=== PATIENT | female | born 1995 | race Caucasian/White ===

== ENCOUNTER 2017-01-06 12:02 | Emergency (ER) | payer BC, MEDICAID ==
[~2017-01-06] VITALS: Ht 162.6 cm; Wt 131.5 kg
[~2017-01-06 12:02] MED LIST: ACET250T3 PO; ACHD5005 PO; AZTH250C PO; CEPH500C PO; CIPR500T78 PO; DICY20TA57 PO; HYDR-1231 PO; HYDR1TAB PO; HYDR1TAB66 PO; LVF500T; METR500T PO; MTF500T PO; NAPR-243 PO; ONDA8TAB13 PO; ONDA8TAB9 PO; OXYC-12 PO; PHEN200T27 PO; POLY119P PO; PRM25T PO; SULF-222 PO; SULF1TAB38 PO; TRAM50TA2 PO; TRL300 PO; TRM50T PO
[2017-01-06 12:25] LABS: BILIRUBIN,URINE NEGATIVE (NEGATIVE); KETONES,URINE NEGATIVE (NEGATIVE); LEUKOCYTE ESTERASE ,URINE NEGATIVE (NEGATIVE); NITRITE,URINE NEGATIVE (NEGATIVE); PH,URINE 8 (5-9); PROTEIN,URINE NEGATIVE (NEGATIVE); UROBILINOGEN,URINE NORMAL (NORMAL)
[2017-01-06] MEDS ORDERED: KETOROLAC 30 MG/ML VIAL IVP STA (12:30)
[2017-01-06] MEDS ORDERED: NS IV 1000 ML 1,000 ML IV STA (12:30)
[2017-01-06] MEDS ORDERED: ONDANSETRON 4 MG/2 ML (SDV) Z0FRAN IVP ONE (12:30)
[2017-01-06] MEDS ORDERED: fentaNYL INJECTION 100 MCG/2 ML AMP IVP STA (12:30)
[2017-01-06 12:33] LABS: WBC,URINE 0-2 /HPF
--- NOTE | 2017-01-06 12:36 | ED Abdominal Pain ---
General Chief Complaint: Abdominal/GI Problems Stated Complaint: GALBLADDER OR APPENDIX PAIN Nursing Triage Note: c/o right sided abd pain. Onset yesterday. Sepsis Screen: No Definite Risk Source of Information: Patient Exam Limitations: No Limitations History of Present Illness Time Seen By Provider: 12:20 Initial Comments Here with report of right lower quadrant abdominal pain that radiates to the upper quadrants and her back. Onset yesterday. Associated with nausea and vomiting 1. Denies dysuria or blood in her urine or stool. Denies diarrhea. Never had pain like this before. Worse with movement and better with rest Timing/Duration: 24 Hours Severity/Quality: Moderate, Aching Location: RLQ Radiation: RUQ, LUQ, Back Activities at Onset: None Modifying Factors: Worsens With Breathing, Worsens With Movement, Improves With Resting Associated Symptoms: No Chest Pain, No Fever/Chills, Nausea/Vomiting, No Shortness of Air, No Weakness Allergies and Home Medications Allergies Coded Allergies: amoxicillin (Verified Allergy, Mild, 05/18/13) vancomycin (Unverified Allergy, Unknown, 01/24/15) maris syndrome Uncoded Allergies: SURGICAL GLUE (Allergy, Unknown, 03/13/15) Home Medications Oxycodone Hcl/Acetaminophen 1 Each Tablet, 1 EACH PO Q4-6H PRN, #20 Ref 0 ( Reported) Review of Systems Constitutional: see HPI, No chills, No fever EENTM: No Symptoms Reported Respiratory: No Symptoms Reported Cardiovascular: No Symptoms Reported, Denies Chest Pain, Denies Edema Gastrointestinal: Abdominal Pain, Denies Constipated, Denies Diarrhea, Nausea, Vomiting Genitourinary: No Symptoms Reported Musculoskeletal: back pain, No muscle pain Skin: no symptoms reported All Other Systems Reviewed Negative Unless Noted: Yes Past Oazudzn-Mgktlh-Kyzpvj Hx Patient Social History Alcohol Use: Denies Use Recreational Drug Use: Yes (thc) Smoking Status: Never a Smoker Recent Foreign Travel: No Contact w/Someone Who Travel: No Recent Infectious Disease Expo: No Immunizations Up To Date Date of Influenza Vaccine: Jun 03, 2012 Surgeries HX Surgeries: Yes (left salpingectomy; GENERAL ACCOUNTING CLERK shunt) Surgeries: Abdominal, Adenoidectomy, Tonsillectomy Respiratory Hx Respiratory Disorders: No Cardiovascular Hx Cardiac Disorders: No Neurological Hx Neurological Disorders: Yes (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) Neurological Disorders: Headaches /Migraines Reproductive System Hx Reproductive Disorders: Yes (12 CM CYST OF THE LEFT SALPINX STATUS POST RESECTION) Female Reproductive Disorders: Polycystic Ovarian Dis Genitourinary Hx Genitourinary Disorders: No Gastrointestinal Hx Gastrointestinal Disorders: Yes (abdominopelvic adhesions) Musculoskeletal Hx Musculoskeletal Disorders: No Endocrine Hx Endocrine Disorders: No HEENT HX ENT Disorders: No Cancer Hx Cancer: No Psychosocial Hx Psychiatric Problems: Yes Behavioral Health Disorders: ADD/ADHD Integumentary HX Skin/Integumentary Disorder: No Blood Transfusions Hx Blood Disorders: No Reviewed Nursing Assessment Reviewed/Agree w Nursing PMH: Yes Family Medical History Significant Family History: No Pertinent Family Hx Physical Exam Vital Signs VS - Last 72 Hours, by Label 01/06/17 12:23 Temp 97.5 Pulse 70 Resp 16 B/P (MAP) 138/77 Pulse Ox 98 Capillary Refill : Less Than 3 Seconds General Appearance: WD/WN, no apparent distress HEENT: PERRL/EOMI, pharynx normal Neck: full range of motion, supple Respiratory: lungs clear, normal breath sounds Cardiovascular: regular rate, rhythm, no murmur Gastrointestinal: soft, No guarding, No rebound, tenderness (right lower quadrant) Extremities: non-tender, normal inspection Back: normal inspection, no CVA tenderness, no vertebral tenderness Neurologic/Psychiatric: alert, oriented x 3 Skin: normal color, warm/dry Progress/Results/Core Measures Results/Orders Lab Results Laboratory Tests Test 01/06/17 12:05 01/06/17 12:38 Range/Units Urine Color YELLOW Urine Clarity CLEAR Urine pH 8 5-9 Urine Specific [place] 1.015 L 1.016-1.022 Urine Protein NEGATIVE NEGATIVE Urine Glucose (UA) NEGATIVE NEGATIVE Urine Ketones NEGATIVE NEGATIVE Urine Nitrite NEGATIVE NEGATIVE Urine Bilirubin NEGATIVE NEGATIVE Urine Urobilinogen NORMAL NORMAL MG/DL Urine Leukocyte Esterase NEGATIVE NEGATIVE Urine RBC (Auto) NEGATIVE NEGATIVE Urine RBC NONE /HPF Urine WBC 0-2 /HPF Urine Squamous Epithelial Cells 2-5 /HPF Urine Crystals NONE /LPF Urine Bacteria NEGATIVE /HPF Urine Casts NONE /LPF Urine Mucus NEGATIVE /LPF Urine Culture Indicated NO Urine Test NEGATIVE NEGATIVE White Blood Count 10.3 4.3-11.0 10^3/uL Red Blood Count 5.54 4.35-5.85 10^6/uL Hemoglobin 15.2 11.5-16.0 G/DL Hematocrit 45 35-52 % Mean Corpuscular Volume 81 80-99 FL Mean Corpuscular Hemoglobin 27 25-34 PG Mean Corpuscular Hemoglobin Concent 34 32-36 G/DL Red Cell Distribution Width 13.7 10.0-14.5 % Platelet Count 233 130-400 10^3/uL Mean Platelet Volume 12.1 H 7.4-10.4 FL Neutrophils (%) (Auto) 69 42-75 % Lymphocytes (%) (Auto) 22 12-44 % Monocytes (%) (Auto) 7 0-12 % Eosinophils (%) (Auto) 2 0-10 % Basophils (%) (Auto) 0 0-10 % Neutrophils # (Auto) 7.1 1.8-7.8 X 10^3 Lymphocytes # (Auto) 2.3 1.0-4.0 X 10^3 Monocytes # (Auto) 0.7 0.0-1.0 X 10^3 Eosinophils # (Auto) 0.2 0.0-0.3 10^3/uL Basophils # (Auto) 0.0 0.0-0.1 10^3/uL Sodium Level 143 135-145 MMOL/L Potassium Level 4.1 3.6-5.0 MMOL/L Chloride Level 109 H 98-107 MMOL/L Carbon Dioxide Level 26 21-32 MMOL/L Anion Gap 8 5-14 MMOL/L Blood Urea Nitrogen 7 7-18 MG/DL Creatinine 0.73 0.60-1.30 MG/DL Estimat Glomerular Filtration Rate > 60 BUN/Creatinine Ratio 10 Glucose Level 107 H 70-105 MG/DL Calcium Level 9.0 8.5-10.1 MG/DL Total Bilirubin 0.3 0.1-1.0 MG/DL Aspartate Amino Transf (AST/SGOT) 15 5-34 U/L Alanine Aminotransferase (ALT/SGPT) 21 0-55 U/L Alkaline Phosphatase 67 40-136 U/L Total Protein 6.6 6.4-8.2 G/DL Albumin 3.7 3.2-4.5 G/DL My Orders Orders - RAJIV TERRY MD Ua Culture If Indicated (01/06/17 12:19) Hcg,Qualitative Urine (01/06/17 12:19) Cbc With Automated Diff (01/06/17 12:30) Comprehensive Metabolic Panel (01/06/17 12:30) Saline Lock/Iv-Start (01/06/17 12:30) Ondansetron Injection (Zofran Injectio (01/06/17 12:30) Ns Iv 1000 Ml (Sodium Chloride 0.9%) (01/06/17 12:30) Fentanyl Injection (Sublimaze Injection (01/06/17 12:30) Ketorolac Injection (Toradol Injection) (01/06/17 12:30) Ct Abd/Pelv W (Appendicitis) (01/06/17 12:58) Iohexol Injection (Omnipaque 350 Mg/Ml 1 (01/06/17 13:15) Ns (Ivpb) (Sodium Chloride 0.9% Ivpb Bag (01/06/17 13:15) Medications Given in ED Current Medications Medications Dose Ordered Sig/Laureano Route Start Time Stop Time Status Last Admin Dose Admin Iohexol 100 ml ONCE ONCE IV 01/06/17 13:15 01/06/17 13:16 DC 01/06/17 13:53 100 ML Ondansetron HCl 4 mg ONCE ONCE IVP 01/06/17 12:30 01/06/17 12:31 DC 01/06/17 12:42 4 MG Sodium Chloride 100 ml ONCE ONCE IV 01/06/17 13:15 01/06/17 13:16 DC 01/06/17 13:53 80 ML Vital Signs/I&O Vital Sign - Last 12Hours 01/06/17 12:23 Temp 97.5 Pulse 70 Resp 16 B/P (MAP) 138/77 Pulse Ox 98 Blood Pressure Mean: 97 Progress Note : Progress Note Seen and evaluated. IV, labs, UA, normal saline 1 L bolus, Zofran 4 mg IV, fentanyl 50 g IV, Toradol 30 [address] IV[address] Monitor patient. CT abdomen pelvis ordered appendicitis protocol. 1520: No acute findings on any evaluation. She is doing a little better but still states that she generally feels not well. We discussed options of what this is related to an this is likely viral. We will try conservative outpatient and return for any worsening. Discharged home with return precautions. Patient verbalize understanding instructions and agreement with plan. Diagnostic Imaging Diagonstic Imaging: CT Plain Films/CT/US/NM/MRI: abdomen, pelvis Comments VIA [facility]. [place], [place] NAME: ALEJANDRA KAUFMAN [facility] REC#: [id number] PT STATUS: REG ER : 1995 PHYSICIAN: RAJIV TERRY MD ADMIT DATE: 01/06/17/ER Draft Date of Exam:01/06/17 CT ABD/PELV W (APPENDICITIS) PROCEDURE: CT abdomen and pelvis with contrast, rule out appendicitis. TECHNIQUE: Multiple contiguous axial images were obtained through the abdomen and pelvis after the administration of intravenous contrast. INDICATION: Nausea. Right lower quadrant pain. FINDINGS: Liver, gallbladder and bile ducts are normal. The spleen, pancreas and adrenals are normal. The kidneys, ureters and bladder are normal. The appendix is visualized and appears normal. No acute bowel abnormality is seen. There is no free intraperitoneal air or fluid. IMPRESSION: No acute abnormality is seen with no significant change from 01/24/15. Dictated on workstation # [id number] Dict: 01/06/17 1424 Trans: 01/06/17 1429 [id number] Interpreted by: SAMMIE MAURICIO MD Electronically signed by: Departure Impression Impression: Primary Impression: Generalized abdominal pain Disposition: HOME, SELF-CARE Condition: Stable Departure-Patient Inst. Decision time for Depature: 15:22 Referrals: NO,LOCAL PHYSICIAN (PCP/Family) Primary Care Physician Patient Instructions: Acute Abdomen (Belly Pain), Adult (DC) Add. Discharge Instructions: All discharge instructions reviewed with patient and/or family. Voiced understanding. Clear liquid diet for 24 hours and then advance as tolerated. You may take Pepcid or the generic famotidine 20 mg twice daily for the next 3 days and then daily thereafter as needed for stomach upset. Follow-up with your doctor this week for recheck and further evaluation. Return for worse pain, fever, vomiting , weakness, breathing problems or other concerns as needed. RAJIV TERRY MD January 06, 2017 12:36
[2017-01-06 12:49] LABS: BASOPHILS % (AUTO) 0 % (0-10); EOSINOPHILS # (AUTO) 0.2 10^3/uL (0.0-0.3); EOSINOPHILS % (AUTO) 2 % (0-10); LYMPHOCYTES # (AUTO) 2.3 X 10^3 (1.0-4.0); LYMPHOCYTES % (AUTO) 22 % (12-44); MEAN CORPUSCULAR HEMOGLOBIN 27 PG (25-34); MEAN CORPUSCULAR HGB CONC 34 G/DL (32-36); MEAN CORPUSCULAR VOLUME 81 FL (80-99); MEAN PLATELET VOLUME 12.1 FL (7.4-10.4); MONOCYTES # (AUTO) 0.7 X 10^3 (0.0-1.0); MONOCYTES % (AUTO) 7 % (0-12); NEUTROPHILS # (AUTO) 7.1 X 10^3 (1.8-7.8); NEUTROPHILS % (AUTO) 69 % (42-75); PLATELET COUNT 233 10^3/uL (130-400); RED BLOOD COUNT 5.54 10^6/uL (4.35-5.85); RED CELL DISTRIBUTION WIDTH 13.7 % (10.0-14.5); WHITE BLOOD COUNT 10.3 10^3/uL (4.3-11.0)
[2017-01-06 13:08] LABS: ALANINE AMINOTRANSFERASE 21 U/L (0-55); ALBUMIN 3.7 G/DL (3.2-4.5); ANION GAP 8 MMOL/L (5-14); ASPARTATE AMINO TRANSFERASE 15 U/L (5-34); BILIRUBIN,TOTAL 0.3 MG/DL (0.1-1.0); BLOOD UREA NITROGEN 7 MG/DL (7-18); BUN/CREATININE RATIO 10; CARBON DIOXIDE 26 MMOL/L (21-32); CHLORIDE 109 MMOL/L (98-107); CREATININE SERUM 0.73 MG/DL (0.60-1.30); GFR ESTIMATED > 60; GLUCOSE 107 MG/DL (70-105); POTASSIUM 4.1 MMOL/L (3.6-5.0); SODIUM 143 MMOL/L (135-145); TOTAL PROTEIN 6.6 G/DL (6.4-8.2)
[2017-01-06] MEDS ORDERED: NS 100 ML (IVPB) BAG IV ONE (13:15)
[2017-01-06] MEDS ORDERED: IOHEXOL 350 MG/ML 100 ML (OMNIPAQUE 350) VIAL IV ONE (13:15)
--- NOTE | 2017-01-06 14:29 | Diagnostic Imaging Report ---
PROCEDURE: CT abdomen and pelvis with contrast, rule out appendicitis. TECHNIQUE: Multiple contiguous axial images were obtained through the abdomen and pelvis after the administration of intravenous contrast. INDICATION: Nausea. Right lower quadrant pain. FINDINGS: Liver, gallbladder and bile ducts are normal. The spleen, pancreas and adrenals are normal. The kidneys, ureters and bladder are normal. The appendix is visualized and appears normal. No acute bowel abnormality is seen. There is no free intraperitoneal air or fluid. IMPRESSION: No acute abnormality is seen with no significant change from 01/24/15. Dictated by: Dictated on workstation # [id number]
[2017-01-06 15:27] VITALS: BP 132/70
== END 2017-01-06 15:27 | disposition home or self-care (01) ==
LOC: EDUNIT# 12:02 → ER 12:04
DX: R10.84 Generalized abdominal pain (principal)
CPT/HCPCS: 36415; 74177; 80053; 81000; 84703; 85025; 96374; 96375

== ENCOUNTER 2017-05-10 11:36 | Emergency (ER) | payer BC ==
--- OUTSIDE RECORDS SUMMARY | 2017-05-10 11:46 | XMS REPORT ---
Author Author HARJEET WAGNER [facility] Address [address] [place] [address] Care Team Providers Care Loom Fixer Name Role Phone HARJEET WAGNER Unavailable PROBLEMS Type Condition ICD9-CM Code [id number] Code Onset Dates Condition Status SNOMED Code Problem Screening-pulmonary TB V74.1 Active 011413673 Problem Syncope and collapse 780.2 Active 867279808 Problem Headache 784.0 Active 05046531 ALLERGIES Substance Reaction Event Type Date Status Vancomycin HCl unknown effect Drug Allergy Aug, Active Amoxicillin anaphylaxis Drug Allergy Aug, Active SOCIAL HISTORY No smoking Hx information available PLAN OF CARE Activity Details Follow Up prn Reason: VITAL SIGNS Height 64 in 2016-08-23 Weight 304.0 lbs 2016-08-23 Temperature 98.3 degrees Fahrenheit 2016-08-23 Heart Rate 84 bpm 2016-08-23 Respiratory Rate 18 2016-08-23 BMI 52.18 kg/m2 2016-08-23 Blood pressure systolic 128 mmHg 2016-08-23 Blood pressure diastolic 74 mmHg 2016-08-23 MEDICATIONS Medication Instructions Dosage Frequency Start Date End Date Duration Status Promethazine HCl 25 MG Orally every 12 hrs 1 tablet as needed for n/v 12h Aug, Sep, 30 day(s) Active RESULTS No Results PROCEDURES Procedure Date Ordered Related Diagnosis Body Site Office Visit, Est Pt., Level 3 Aug 23, 2016 IMMUNIZATIONS No Known Immunizations
--- OUTSIDE RECORDS SUMMARY | 2017-05-10 11:46 | XMS REPORT | Continuity of Care Document ---
Author Author [employer] [facility] Address Unknown Phone Unavailable Care Team Providers Care Correctional Program Specialist Name Role Phone [employer] Unavailable Unavailable Problems Medications Medication Details Route Status Patient Instructions Ordering Provider Order Date Source Toradol 09/01/14 12:00:00 HEPATOLOGY PHYSICIAN, [facility], Routine, 30 mg=2 mL, IV Push, q8hr, 5 day(s), Stop date 09/06/14 4:00:00 CSTAdminister IV push over 1-5 minutes. MED ID: [id number] Inactive [facility] Benadryl 09/01/14 12:00:00 HEPATOLOGY PHYSICIAN, [facility], Routine, 50 mg=1 mL, IV Push, q8hr Active [facility] Compazine 09/01/14 11:37:00 HEPATOLOGY PHYSICIAN, Med Drawer (Pharmacy) , Routine, 10 mg=10 mL, IV Push, [id number] Concentration. Administer at a maximum rate of 1mg/minute. Protect from light. MED ID: [id number] Active [facility] acetaminophen 08/31/14 16:01:00 HEPATOLOGY PHYSICIAN, [facility], Routine, 1,000 mg=31.25 mL, PO, q6hr, PRN Fever or Mild PainMax dose: < 12 y.o.=75 mg/kg/day; > 12 y.o.=4 gm/day MED ID: [id number]. Active [facility] ibuprofen 08/31/14 16:01:00 HEPATOLOGY PHYSICIAN, [facility] , Routine, 800 mg=40 mL, PO, q6hr, PRN Fever or Pain, not responding to APAPAdminister medication with food or milk. MED ID: [id number]. Active [facility] D5NS with KCl 20mEq/L 1,000 mL 08/31/14 16:01:00 HEPATOLOGY PHYSICIAN, [facility]H1 [facility], Routine, IV, 1,000 mL Total Volume, iyyn=214 mL/hr Active [facility] ibuprofen 100 mg/5 mL oral suspension 800 mg=40 mL, PO , q6hr, PRN Fever or Pain, not responding to APAP, Refill(s) 0 Active [facility] Allergies, Adverse Reactions, Alerts Substance Category Reaction Severity Reaction type Status Date Reported Comments Source Adhesive Bandage allergy to substance Weal (disorder), Blister of skin AND/OR mucosa (finding), Pruritic rash (disorder) Delay Discharge: Severe Allergy Active 09/2011 1Per patient surgical super glue has been used on two separate occasions, both times causing her to itch. She stated that now instead of using the "glue" they have since just used stitches. 2blisters [facility] amoxicillin propensity to adverse reactions to substance Numbness of face (finding) Requires Tx: Moderate Adverse Reaction Active 09/03/2012 [facility] Drug Safety Service: Tay Hodges - She was prescribed amoxicillin approximately one year ago for the "flu", after taking the medication she developed numbness of her face and chest. She went to an ER but is unable to recall specific details of how reaction was managed. [facility] Immunizations Results Order Name Results Value Reference Range Date Interpretation Comments Source UCG UCG NEGATIVE 08/31/2014 NA [facility] Vital Signs Vital Sign Value Date Comments Source Temperature Celsius 36.8 [place] 09/01/2014 [facility] Systolic Blood Pressure Cuff Monitored <content ID=' [id number]'>113</content>/<content ID='[id number]'>71</content> mm[Hg ] 09/01/2014 [facility] Temperature Route Oral
</br>(09/01/2014 16:00:00) <sup> </sup> 09/01/2014 [facility] Respiratory Rate 21 BR/min [facility] Heart Rate 78 bpm 09/01/2014 [facility] Systolic Blood Pressure Cuff Monitored <content ID=' [id number]'>131</content>/<content ID='[id number]'>51</content> mm[Hg ] 09/01/2014 [facility] Temperature Route Oral
</br>(09/01/2014 12:00:00) <sup> </sup> 09/01/2014 [facility] Temperature Celsius 36.6 [place] 09/01/2014 [facility] Respiratory Rate 16 BR/min [facility] Heart Rate 85 bpm 09/01/2014 [facility] Systolic Blood Pressure Cuff Monitored <content ID=' [id number]'>110</content>/<content ID='[id number]'>52</content> mm[Hg ] 09/01/2014 [facility] Respiratory Rate Monitored 15 BR/min 09/01/[address] [facility] Heart Rate Monitored 68 bpm 09/01/2014 [facility] Respiratory Rate 17 BR/min [facility] Heart Rate 79 bpm 09/01/2014 [facility] Temperature Route Oral
</br>(09/01/2014 08:00:00) <sup> </sup> 09/01/2014 [facility] Temperature Celsius 36.7 [place] 09/01/2014 [facility] Respiratory Rate Monitored 16 BR/min 09/01/[address] [facility] Heart Rate Monitored 70 bpm 09/01/2014 [facility] Current Weight 124.3 kg 09/01 [facility] Respiratory Rate Monitored 19 BR/min 08/31/[address] [facility] Heart Rate Monitored 77 bpm 08/31/2014 [facility] Current Weight 116.1 kg 08/31 [facility] Height/Length 162.5 cm 2013 [facility] Height/Length 162.5 cm 2013 [facility] Current Weight 116.1 kg 08/31 [facility] Encounters Location Location Details Encounter Type Encounter Number Reason For Visit Attending Provider ADM Date DC Date Status Source [facility] [address] REF [id number] Alka Villa 08/31/2014 Active [facility] OBS [id number] romi Aguilar 08/31/2014 Active [facility] Procedures Plan of Care Social History Assessment and Plan Family History Value Date Source Advance Directives Order Name Results Value Date Source
--- OUTSIDE RECORDS SUMMARY | 2017-05-10 11:46 | XMS REPORT ---
Author Author SHONNA SANCHEZ [facility] [address] Address [address] [place] [address] Care Team Providers Care Barrel Drainer Name Role Phone SHONNA SANCHEZ Unavailable PROBLEMS Type Condition ICD9-CM Code VDO40-FE Code Onset Dates Condition Status SNOMED Code Problem Screening-pulmonary TB V74.1 Active 972526746 Problem Syncope and collapse 780.2 Active 151729582 Problem Headache 784.0 Active 54233790 ALLERGIES No Known Allergies SOCIAL HISTORY No smoking Hx information available PLAN OF CARE Activity Details Follow Up 48-72 hours Reason: VITAL SIGNS MEDICATIONS No Known Medications RESULTS No Results PROCEDURES Procedure Date Ordered Related Diagnosis Body Site TB INTRADERMAL TEST Sep 06, 2016 IMMUNIZATIONS No Known Immunizations
== END 2017-05-10 12:50 | disposition left against medical advice (07) ==
LOC: EDUNIT# 11:36 → ER 11:41
DX: M79.89 Other specified soft tissue disorders (principal); Z77.098 Contact with and (suspected) exposure to other hazardous, chiefly nonmedicinal, chemicals

== ENCOUNTER 2017-07-16 21:31 | Emergency (ER) | payer BC ==
[~2017-07-16] VITALS: Ht 162.6 cm; Wt 128.8 kg
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
[2017-07-16 22:22] LABS: BASOPHILS % (AUTO) 0 % (0-10); EOSINOPHILS # (AUTO) 0.5 10^3/uL (0.0-0.3); EOSINOPHILS % (AUTO) 5 % (0-10); LYMPHOCYTES % (AUTO) 29 % (12-44); MEAN CORPUSCULAR HEMOGLOBIN 28 PG (25-34); MEAN CORPUSCULAR HGB CONC 34 G/DL (32-36); MEAN CORPUSCULAR VOLUME 82 FL (80-99); MEAN PLATELET VOLUME 11.3 FL (7.4-10.4); MONOCYTES # (AUTO) 0.7 X 10^3 (0.0-1.0); MONOCYTES % (AUTO) 7 % (0-12); NEUTROPHILS % (AUTO) 59 % (42-75); PLATELET COUNT 258 10^3/uL (130-400); RED BLOOD COUNT 5.24 10^6/uL (4.35-5.85); RED CELL DISTRIBUTION WIDTH 13.6 % (10.0-14.5); WHITE BLOOD COUNT 10.2 10^3/uL (4.3-11.0)
[2017-07-16 22:52] LABS: ALANINE AMINOTRANSFERASE 18 U/L (0-55); ALBUMIN 3.8 GM/DL (3.2-4.5); AMYLASE 50 U/L (25-125); ANION GAP 11 MMOL/L (5-14); ASPARTATE AMINO TRANSFERASE 18 U/L (5-34); BILIRUBIN,TOTAL 0.3 MG/DL (0.1-1.0); BLOOD UREA NITROGEN 19 MG/DL (7-18); BUN/CREATININE RATIO 24; CALCIUM 9.3 MG/DL (8.5-10.1); CARBON DIOXIDE 22 MMOL/L (21-32); CHLORIDE 109 MMOL/L (98-107); CREATINE KINASE 44 U/L (29-168); GFR ESTIMATED > 60; GLUCOSE 112 MG/DL (70-105); LIPASE 16 U/L (8-78); MAGNESIUM 1.9 MG/DL (1.8-2.4); POTASSIUM 3.8 MMOL/L (3.6-5.0); SODIUM 142 MMOL/L (135-145); TOTAL PROTEIN 7.1 GM/DL (6.4-8.2)
[2017-07-16 22:52] LABS: BILIRUBIN,URINE NEGATIVE (NEGATIVE); KETONES,URINE NEGATIVE (NEGATIVE); LEUKOCYTE ESTERASE ,URINE NEGATIVE (NEGATIVE); NITRITE,URINE NEGATIVE (NEGATIVE); PH,URINE 6 (5-9); PROTEIN,URINE NEGATIVE (NEGATIVE); UROBILINOGEN,URINE NORMAL (NORMAL)
[2017-07-16 23:13] LABS: TROPONIN I < 0.30 NG/ML (<0.30)
[2017-07-16 23:38] VITALS: BP 108/83
--- NOTE | 2017-07-17 06:04 | Diagnostic Imaging Report ---
EXAM: CHEST PA/LAT (2 VIEW) INDICATION: Chest pain. Cough. COMPARISON: None. FINDINGS: Normal heart size and pulmonary vascularity. No focal pulmonary opacity, pleural effusion or pneumothorax. Osseous structures are unremarkable. IMPRESSION: Negative chest. Dictated by: Dictated on workstation # [id number]
== END 2017-07-16 23:38 | disposition home or self-care (01) ==
LOC: EDUNIT# 21:31 → ER 21:32
DX: F41.9 Anxiety disorder, unspecified (principal); G43.909 Migraine, unspecified, not intractable, without status migrainosus; E66.9 Obesity, unspecified; E11.9 Type 2 diabetes mellitus without complications; F90.9 Attention-deficit hyperactivity disorder, unspecified type; F17.210 Nicotine dependence, cigarettes, uncomplicated; Z87.448 Personal history of other diseases of urinary system; Z90.89 Acquired absence of other organs
CPT/HCPCS: 36415; 71020; 80053; 80306; 81000; 82150; 82550; 82553; 83690; 83735; 83880; 84443; 84484; 84703; 85025; 85610; 85730; 93005; 93041

== ENCOUNTER → 2017-07-24 | Outpatient (CLI) | payer BC ==
[2017-07-24 11:11] LABS: PEP REPORT SEE PATH REPORT
[2017-07-24 11:16] LABS: BASOPHILS # (AUTO) 0.1 10^3/uL (0.0-0.1); BASOPHILS % (AUTO) 0 % (0-10); EOSINOPHILS # (AUTO) 0.3 10^3/uL (0.0-0.3); EOSINOPHILS % (AUTO) 3 % (0-10); LYMPHOCYTES # (AUTO) 2.2 X 10^3 (1.0-4.0); LYMPHOCYTES % (AUTO) 18 % (12-44); MEAN CORPUSCULAR HEMOGLOBIN 28 PG (25-34); MEAN CORPUSCULAR HGB CONC 34 G/DL (32-36); MEAN CORPUSCULAR VOLUME 81 FL (80-99); MEAN PLATELET VOLUME 11.8 FL (7.4-10.4); MONOCYTES # (AUTO) 0.7 X 10^3 (0.0-1.0); MONOCYTES % (AUTO) 6 % (0-12); NEUTROPHILS # (AUTO) 8.8 X 10^3 (1.8-7.8); NEUTROPHILS % (AUTO) 73 % (42-75); PLATELET COUNT 242 10^3/uL (130-400); RED BLOOD COUNT 5.41 10^6/uL (4.35-5.85); RED CELL DISTRIBUTION WIDTH 13.7 % (10.0-14.5); WHITE BLOOD COUNT 12.1 10^3/uL (4.3-11.0)
[2017-07-24 11:35] LABS: ALANINE AMINOTRANSFERASE 23 U/L (0-55); ALBUMIN 3.8 GM/DL (3.2-4.5); ANION GAP 9 MMOL/L (5-14); ASPARTATE AMINO TRANSFERASE 22 U/L (5-34); BILIRUBIN,TOTAL 0.5 MG/DL (0.1-1.0); BLOOD UREA NITROGEN 11 MG/DL (7-18); BUN/CREATININE RATIO 16; CARBON DIOXIDE 24 MMOL/L (21-32); CHLORIDE 109 MMOL/L (98-107); CREATININE SERUM 0.67 MG/DL (0.60-1.30); GFR ESTIMATED > 60; GLUCOSE 107 MG/DL (70-105); POTASSIUM 3.5 MMOL/L (3.6-5.0); SODIUM 142 MMOL/L (135-145); TOTAL PROTEIN 7.2 GM/DL (6.4-8.2)
[2017-07-24 13:11] LABS: EOSINOPHILS % (MANUAL) 4 %; LYMPHOCYTES % (MANUAL) 11 %; NEUTROPHILS % (MANUAL) 72 %
[2017-07-24 13:12] LABS: REACTIVE LYMPHOCYTES 7 %
[2017-07-25 03:19] LABS: EBV EA AB INT Positive (Negative); EBV VCA IGG INT Positive (Negative)
[2017-07-25 15:53] LABS: EBV NUC IGG INT Positive (Negative); EPSTEIN BARR EARLY ANTIGEN 29.4 U/mL (0.0-8.9)
== END ==
LOC: LAB 10:23
PROVIDERS: ATTEND Nurse Practitioner Family
DX: R59.9 Enlarged lymph nodes, unspecified (principal)
CPT/HCPCS: 36415; 80053; 82164; 84155; 84165; 84703; 85007; 85027; 86663; 86664; 86665

== ENCOUNTER 2017-07-25 11:53 | Outpatient (RCR) | payer BC | END 2017-10-22 | disposition home or self-care (01) | LOC: LAB 11:53 | PROVIDERS: ATTEND Nurse Practitioner Family | DX: R59.9 Enlarged lymph nodes, unspecified (principal) | CPT/HCPCS: 36415; 82570; 84156; 84166 ==

== ENCOUNTER → 2017-08-13 | Outpatient (CLI) | payer BC ==
[~2017-08-13] MED LIST changes: +CATHETER FLUSH 10 ML SYR IV PRN; +IOHEXOL 350 MG/ML 100 ML (OMNIPAQUE 350) VIAL IV ONE; +NS 100 ML (IVPB) BAG IV ONE
--- NOTE | 2017-08-13 14:50 | Diagnostic Imaging Report ---
PROCEDURE: CT chest with contrast only. TECHNIQUE: Multiple contiguous axial images were obtained through the chest after administration of intravenous contrast. INDICATION: Shortness of breath. Enlarged lymph nodes. COMPARISON: 07/06/2017. 75 mL of Omnipaque 350 is administered intravenously. FINDINGS: There is area of groundglass density measuring 2 x 1.5 cm in the lateral aspect of the right upper lobe. Another area of groundglass density nodule measuring 2.4 x 1.5 cm is seen in the left lower lobe. In the left lower lobe, another lesion measuring 1.2 cm is also seen, also stable from previous exam. There is no other pulmonary nodule or mass. The mediastinum demonstrate multiple enlarged lymph nodes up to 1.6 cm right paratracheal node and infracarinal node measuring 1.9 cm. There are mildly enlarged mediastinal and aortopulmonary window lymph nodes. There is also suggestion of thymic hyperplasia. There is no axillary lymphadenopathy. The heart size is at the upper limits of normal. The thoracic aorta is normal in caliber. No pleural or pericardial effusion is seen. Sections in the upper abdomen demonstrate mild splenomegaly measuring 14.7 cm in AP dimension. The osseous structures appear grossly unremarkable. IMPRESSION: 1. Indeterminate groundglass nodular densities in the right upper lobe and in the left lower lobe could relate to subacute or chronic inflammatory pneumonitis or neoplastic in etiology. Short-term followup or PET/CT evaluation is suggested. 2. Mild lymphadenopathy in the niesha and mediastinum. 3. Mild splenomegaly. Dictated by: Dictated on workstation # [id number]
== END ==
LOC: RAD 09:51
PROVIDERS: ATTEND Nurse Practitioner Family
DX: R91.8 Other nonspecific abnormal finding of lung field (principal); R59.0 Localized enlarged lymph nodes; R16.1 Splenomegaly, not elsewhere classified; Z72.0 Tobacco use
CPT/HCPCS: 71260

== ENCOUNTER 2017-09-10 20:36 | Emergency (ER) | payer BC, MEDICAID ==
[~2017-09-10] VITALS: Ht 160 cm; Wt 113.4 kg
[~2017-09-10 20:36] MED LIST changes: -CATHETER FLUSH 10 ML SYR IV PRN; -IOHEXOL 350 MG/ML 100 ML (OMNIPAQUE 350) VIAL IV ONE; -NS 100 ML (IVPB) BAG IV ONE
--- OUTSIDE RECORDS SUMMARY | 2017-09-10 20:40 | XMS REPORT | Clinical Summary ---
Author Author [facility] Address Unknown Phone Unavailable Allergies Not on File Current Medications Not on file Active Problems Not on file Social History Tobacco Use Types Packs/Day Years Used Date Never Assessed Sex Assigned at Date Recorded Not on file Plan of Treatment Health Maintenance Due Date Last Done Comments HPV Vaccines (1 of 3 - 01/01/2008 Female 3 Dose Series) Varicella Vaccines (1 of 2009 2 - 2 Dose Adolescent Series) MenB Vaccine (Bexsero) (1 2012 of 2) DTaP,Tdap,and Td Vaccines 01/01/2016 (1 - Tdap) Influenza Vaccine (#1) 2017 Results Not on filefrom Last 3 Months
--- OUTSIDE RECORDS SUMMARY | 2017-09-10 20:41 | XMS REPORT | CCD ---
Author Author Auto Generated Organization [facility] Address Unknown Phone Unavailable Care Team Providers Care Emergency Medicine Nurse Practitioner Name Role Phone Eleanor Lanier CP [phone] Jeff Urbano CP [phone] Chelsea Chavez RP [phone] Ashely Arora PP [phone] Allergies, Adverse Reactions, Alerts Substance Reaction Status Adhesive Bandage1, 2 Hives Active Blisters Itchy rash amoxicillin3 Numbness of face Active 1Per patient surgical super glue has been used on two separate occasions, both times causing her to itch. She stated that now instead of using the "glue" they have since just used stitches. 2blisters 3IPT Drug Safety Service: Tay Hodges - She was prescribed amoxicillin approximately one year ago for the "flu", after taking the medication she developed numbness of her face and chest. She went to an ER but is unable to recall specific details of how reaction was managed. Medications Medication Instructions Start Date End Date Status Toradol 09/01/14 12:00:00 [employer], 2H2 09/01/2014 09/06/2014 Ordered [facility], Routine, 30 mg=2 mL, IV Push, q8hr, 5 day(s), Stop date 09/06/14 4:00:00 CSTAdminister IV push over 1-5 minutes. MED ID: [id number] Benadryl 09/01/14 12:00:00 [employer], 2H2 09/01/2014 Ordered [facility], Routine, 50 mg=1 mL, IV Push, q8hr Compazine 09/01/14 11:37:00 [employer], Med Drawer 09/01/2014 Ordered (Pharmacy), Routine, 10 mg=10 mL, IV Push, [id number] Concentration. Administer at a maximum rate of 1mg/minute. Protect from light. MED ID: [id number] acetaminophen 08/31/14 16:01:00 [employer]T BU[employer]LE [employer]KER, 2H2 08/31/2014 Ordered [facility], Routine, 1,000 mg=31.25 mL, PO, q6hr, PRN Fever or Mild PainMax dose: < 12 y.o.=75 mg/kg/day; > 12 y.o.=4 gm/day MED ID: [id number]. ibuprofen 08/31/14 16:01:00 [employer]T [employer], 2H2 08/31/2014 Ordered [facility], Routine, 800 mg=40 mL, PO, q6hr, PRN Fever or Pain, not responding to APAPAdminister medication with food or milk. MED ID: [id number]. D5NS with KCl 08/31/14 16:01:00 [employer]T [employer]CKLE [employer]KER, 2H1 08/31/2014 Ordered 20mEq/L 1,000 mL [facility], Routine, IV, 1,000 mL Total Volume, srmd=606 mL/hr ibuprofen 100 mg/5 800 mg=40 mL, PO, q6hr, PRN Fever 09/01/2014 Ordered mL oral suspension or Pain, not responding to APAP, Refill(s) 0 acetaminophen 1,000 mg, PO, q6hr, PRN Fever or 09/01/2014 Ordered Mild Pain, Refill(s) 0 Vital Signs Most recent to oldest [Reference Range]: 1 2 3 Heart Rate [50-120 bpm] 78 bpm (09/01/2014 16:00:00) 85 bpm (09/01/2014 12:00:00) 79 bpm (09/01/2014 08:00:00) Most recent to oldest [Reference Range]: 1 2 3 Heart Rate Monitored [50-120 bpm] 68 bpm (09/01/2014 08:00:00) 70 bpm (09/01/2014 01:00:00) 77 bpm (08/31/2014 16:40:00) Most recent to oldest [Reference Range]: 1 2 3 Respiratory Rate [10-40 BR/min] 21 BR/min (09/01/2014 16:00:00) 16 BR/min (09/01/2014 12:00:00) 17 BR/min (09/01/2014 08:00:00) Most recent to oldest [Reference Range]: 1 2 3 Respiratory Rate Monitored [10-40 BR/min] 15 BR/min (09/01/2014 08:00:00) 16 BR/min (09/01/2014 01:00:00) 19 BR/min (08/31/2014 16:40:00) Most recent to oldest [Reference Range]: 1 2 3 Blood Pressure Cuff [90-127/45-83 mmHg] <content ID='[id number]'>113</ content>/<content ID='[id number]'>71</content> mmHg (09/01/2014 16:00:00) <content ID='[id number]'>131</content>/<content ID='[id number]'>51</content> mmHg *HI* (09/01/2014 12:00:00) <content ID='[id number]'>110</content>/<content ID='[id number]'>52</content> mmHg (09/01/2014 08:00:00) Most recent to oldest [Reference Range]: 1 2 3 Temperature Route Oral (09/01/2014 16:00:00) Oral (09/01/2014 12:00:00) Oral (09/01/2014 08:00:00) Most recent to oldest [Reference Range]: 1 2 3 Temperature Celsius [36-38.4 DegC] 36.8 DegC (09/01/2014 16:00:00) 36.6 DegC (09/01/2014 12:00:00) 36.7 DegC (09/01/2014 08:00:00) Most recent to oldest [Reference Range]: 1 2 3 Current Weight 124.3 kg (08/31/2014 21:00:00) 116.1 kg (08/31/2014 16:09:00) 116.1 kg (08/31/2014 15:24:00) Most recent to oldest [Reference Range]: 1 2 3 Height/Length 162.5 cm (08/31/2014 16:09:00) 162.5 cm (08/31/2014 15:24:00)
--- OUTSIDE RECORDS SUMMARY | 2017-09-10 20:41 | XMS REPORT | Continuity of Care Document ---
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 MED ID: [id number] Inactive [facility] Benadryl 09/01/14 12:00:00 [employer]ER, 2H2 [facility], Routine, 50 mg=1 mL, IV Push, q8hr Active [facility] Compazine 09/01/14 11:37:00 [employer], Med Drawer (Pharmacy) , Routine, 10 mg=10 mL, IV Push, [id number] Concentration. Administer at a maximum rate of 1mg/minute. Protect from light. MED ID: [id number] Active [facility] acetaminophen 08/31/14 16:01:00 [employer]ER, 2H2 [facility], Routine, 1,000 mg=31.25 mL, PO, q6hr, PRN Fever or Mild PainMax dose: 13 y.o.=4 gm/day MED ID: [id number]. Active [facility] ibuprofen 08/31/14 16:01:00 [employer], 2H2 [facility] , Routine, 800 mg=40 mL, PO, q6hr, PRN Fever or Pain, not responding to APAPAdminister medication with food or milk. MED ID: [id number]. Active [facility] D5NS with KCl 20mEq/L 1,000 mL 08/31/14 16:01:00 [employer]ER, 2H1 [facility], Routine, IV, 1,000 mL Total Volume, qbwn=480 mL/hr Active [facility] ibuprofen 100 mg/5 mL oral suspension 800 mg=40 mL, PO , q6hr, PRN Fever or Pain, not responding to APAP, Refill(s) 0 Active [facility] Allergies, Adverse Reactions, Alerts Substance Category Reaction [...] they have since just used stitches. 2blisters [facility] amoxicillin propensity to adverse reactions to substance [...] specific details of how reaction was managed. [facility] Immunizations Results Order Name Results Value Reference Range Date Interpretation Comments Source UCG UCG NEGATIVE 08/31/2014 NA [facility] Vital Signs Vital Sign Value Date Comments Source Temperature Celsius 36.8 [place] 09/01/2014 [facility] Systolic Blood Pressure Cuff Monitored <content ID=' [id number]'>113</content>/<content ID='[id number]'>71</content> mm[Hg ] 09/01/2014 [facility] Temperature Route Oral
(09/01/2014 16:00:00) <sup > </sup> 09/01/2014 [facility] Respiratory Rate 21 BR/min [facility] Heart Rate 78 bpm 09/01/2014 [facility] Systolic Blood Pressure Cuff Monitored <content ID=' [id number]'>131</content>/<content ID='[id number]'>51</content> mm[Hg ] 09/01/2014 [facility] Temperature Route Oral
(09/01/2014 12:00:00) <sup > </sup> 09/01/2014 [facility] Temperature Celsius 36.6 [place] 09/01/2014 [facility] Respiratory Rate 16 BR/min [facility] Heart Rate 85 bpm 09/01/2014 [facility] Systolic Blood Pressure Cuff Monitored <content ID=' [id number]'>110</content>/<content ID='[id number]'>52</content> mm[Hg ] 09/01/2014 [facility] Respiratory Rate Monitored 15 BR/min 09/01/2014 [facility] Heart Rate Monitored 68 bpm 09/01/2014 [facility] Respiratory Rate 17 BR/min [facility] Heart Rate 79 bpm 09/01/2014 [facility] Temperature Route Oral
(09/01/2014 08:00:00) <sup > </sup> 09/01/2014 [facility] Temperature Celsius 36.7 [place] 09/01/2014 [facility] Respiratory Rate Monitored 16 BR/min 09/01/2014 [facility] Heart Rate Monitored 70 bpm 09/01/2014 [facility] Current Weight 124.3 kg 09/01 [facility] Respiratory Rate Monitored 19 BR/min 08/31/2014 [facility] Heart Rate Monitored 77 bpm 08/31/2014 [facility] Current Weight 116.1 kg 08/31 [facility] Height/Length 162.5 cm 2013 [facility] Height/Length 162.5 cm 2013 [facility] Current Weight 116.1 kg 08/31 [facility] Encounters Location Location Details Encounter Type Encounter Number Reason For Visit Attending Provider ADM Date DC Date Status Source [facility] REF [id number] Alkaisael Driver 08/31/2014 Active [facility] OBS [id number] romi Aguilar 08/31/2014 Active [facility] Procedures Plan of Care Social History Assessment and Plan Family History Advance Directives Functional Status
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
[2017-09-10] MEDS ORDERED: NS IV 1000 ML 1,000 ML IV SCH (20:45)
[2017-09-10] MEDS ORDERED: LORazepam INJ 2 MG/ML (ATIVAN) VIAL IVP ONE (20:45)
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
[2017-09-10 20:59] LABS: BASOPHILS # (AUTO) 0.1 10^3/uL (0.0-0.1); BASOPHILS % (AUTO) 1 % (0-10); EOSINOPHILS # (AUTO) 0.2 10^3/uL (0.0-0.3); EOSINOPHILS % (AUTO) 2 % (0-10); HEMATOCRIT 41 % (35-52); HEMOGLOBIN 14.4 G/DL (11.5-16.0); LYMPHOCYTES # (AUTO) 2.3 X 10^3 (1.0-4.0); LYMPHOCYTES % (AUTO) 28 % (12-44); MEAN CORPUSCULAR HEMOGLOBIN 28 PG (25-34); MEAN CORPUSCULAR HGB CONC 36 G/DL (32-36); MEAN CORPUSCULAR VOLUME 80 FL (80-99); MEAN PLATELET VOLUME 11.8 FL (7.4-10.4); MONOCYTES # (AUTO) 0.6 X 10^3 (0.0-1.0); MONOCYTES % (AUTO) 7 % (0-12); NEUTROPHILS % (AUTO) 61 % (42-75); PLATELET COUNT 93 10^3/uL (130-400); RED BLOOD COUNT 5.08 10^6/uL (4.35-5.85); RED CELL DISTRIBUTION WIDTH 13.8 % (10.0-14.5); WHITE BLOOD COUNT 8.2 10^3/uL (4.3-11.0)
[2017-09-10] MEDS ORDERED: PROMETHAZINE 25 MG (PHENERGAN) TAB PO ONE (21:15)
[2017-09-10 21:55] LABS: ALANINE AMINOTRANSFERASE 27 U/L (0-55); ALBUMIN 4.2 GM/DL (3.2-4.5); ALKALINE PHOSPHATASE 64 U/L (40-136); BUN/CREATININE RATIO 23; CALCIUM 9.5 MG/DL (8.5-10.1); CARBON DIOXIDE 18 MMOL/L (21-32); CHLORIDE 107 MMOL/L (98-107); CREATININE SERUM 0.78 MG/DL (0.60-1.30); GFR ESTIMATED > 60; GLUCOSE 85 MG/DL (70-105); POTASSIUM 3.3 MMOL/L (3.6-5.0); SODIUM 139 MMOL/L (135-145)
[2017-09-10 21:58] LABS: BILIRUBIN,URINE NEGATIVE (NEGATIVE); CLARITY,URINE CLEAR; COLOR,URINE YELLOW; GLUCOSE, URINE (UA) NEGATIVE (NEGATIVE); KETONES,URINE 4+ (NEGATIVE); LEUKOCYTE ESTERASE ,URINE 1+ (NEGATIVE); NITRITE,URINE NEGATIVE (NEGATIVE); PH,URINE 5 (5-9); PROTEIN,URINE 2+ (NEGATIVE); UROBILINOGEN,URINE 1 MG/DL (NORMAL)
[2017-09-10 22:09] LABS: BACTERIA,URINE FEW /HPF; RBC,URINE 0-2 /HPF; SQUAMOUS EPITHELIAL CELL,UR 25-50 /HPF
[2017-09-10 22:12] LABS: AMPHETAMINE SCREEN, URINE POSITIVE (NEGATIVE); BARBITURATE SCREEN URINE NEGATIVE (NEGATIVE); BENZODIAZEPINES SCREEN URINE NEGATIVE (NEGATIVE); CANNABINOID SCREEN, URINE POSITIVE (NEGATIVE); COCAINE SCREEN URINE NEGATIVE (NEGATIVE); METHADONE STAT NEGATIVE (NEGATIVE); METHAMPHETAMINE SCREEN URINE S POSITIVE (NEGATIVE); OPIATE SCREEN URINE NEGATIVE (NEGATIVE); OXYCODONE STAT NEGATIVE (NEGATIVE); PROPOXYPHENE STAT NEGATIVE (NEGATIVE); TRICYCLIC ANTIDEPRESSANTS SCRE NEGATIVE (NEGATIVE)
[2017-09-10 22:20] VITALS: BP 94/66
== END 2017-09-10 22:18 | disposition home or self-care (01) ==
LOC: EDUNIT# 20:36 → ER 20:37
DX: F41.9 Anxiety disorder, unspecified (principal); D69.6 Thrombocytopenia, unspecified; F15.10 Other stimulant abuse, uncomplicated; G43.909 Migraine, unspecified, not intractable, without status migrainosus; E66.9 Obesity, unspecified; E11.9 Type 2 diabetes mellitus without complications; F90.9 Attention-deficit hyperactivity disorder, unspecified type; Z90.89 Acquired absence of other organs; Z90.722 Acquired absence of ovaries, bilateral; Z68.41 Body mass index [BMI] 40.0-44.9, adult
CPT/HCPCS: 36415; 80053; 80306; 81000; 85025; 96361; 96374

== ENCOUNTER 2017-10-03 23:56 | Emergency (ER) | payer BC, MEDICAID ==
[~2017-10-03] VITALS: Ht 162.6 cm; Wt 123.8 kg
[2017-10-04] MEDS ORDERED: NS IV 1000 ML 1,000 ML IV ONE (00:09)
[2017-10-04] MEDS ORDERED: ONDANSETRON 4 MG/2 ML (SDV) Z0FRAN IVP ONE (00:15)
[2017-10-04 01:07] LABS: BASOPHILS % (AUTO) 0 % (0-10); EOSINOPHILS # (AUTO) 0.2 10^3/uL (0.0-0.3); EOSINOPHILS % (AUTO) 1 % (0-10); HEMATOCRIT 43 % (35-52); HEMOGLOBIN 14.9 G/DL (11.5-16.0); LYMPHOCYTES # (AUTO) 2.2 X 10^3 (1.0-4.0); LYMPHOCYTES % (AUTO) 13 % (12-44); MEAN CORPUSCULAR HEMOGLOBIN 28 PG (25-34); MEAN CORPUSCULAR HGB CONC 35 G/DL (32-36); MEAN CORPUSCULAR VOLUME 81 FL (80-99); MEAN PLATELET VOLUME 11.9 FL (7.4-10.4); MONOCYTES % (AUTO) 6 % (0-12); NEUTROPHILS # (AUTO) 13.8 X 10^3 (1.8-7.8); NEUTROPHILS % (AUTO) 80 % (42-75); PLATELET COUNT 248 10^3/uL (130-400); RED BLOOD COUNT 5.32 10^6/uL (4.35-5.85); WHITE BLOOD COUNT 17.3 10^3/uL (4.3-11.0)
[2017-10-04 01:22] LABS: BUN/CREATININE RATIO 11; CALCIUM 9.5 MG/DL (8.5-10.1); CARBON DIOXIDE 22 MMOL/L (21-32); CHLORIDE 105 MMOL/L (98-107); CREATININE SERUM 0.82 MG/DL (0.60-1.30); GFR ESTIMATED > 60; GLUCOSE 107 MG/DL (70-105); POTASSIUM 2.8 MMOL/L (3.6-5.0); SODIUM 141 MMOL/L (135-145)
[2017-10-04 01:30] LABS: BAND NEUTROPHILS 2 %; BASOPHILS % (MANUAL) 0 %; EOSINOPHILS % (MANUAL) 0 %; LYMPHOCYTES % (MANUAL) 10 %; MONOCYTES % (MANUAL) 8 %; NEUTROPHILS % (MANUAL) 80 %; RBC MORPH NORMAL
[2017-10-04] MEDS ORDERED: KCL 10 MEQ TAB (MICRO K) PO ONE (01:45)
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
[2017-10-04 02:12] VITALS: BP 129/88
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
== END 2017-10-04 02:11 | disposition home or self-care (01) ==
LOC: EDUNIT# 23:56 → ER 23:58
DX: S06.9X1A Unspecified intracranial injury with loss of consciousness of 30 minutes or less, initial encounter (principal); J10.1 Influenza due to other identified influenza virus with other respiratory manifestations; E87.6 Hypokalemia; G40.909 Epilepsy, unspecified, not intractable, without status epilepticus; G43.909 Migraine, unspecified, not intractable, without status migrainosus; E66.9 Obesity, unspecified; F41.9 Anxiety disorder, unspecified; E11.9 Type 2 diabetes mellitus without complications; F15.10 Other stimulant abuse, uncomplicated; F12.10 Cannabis abuse, uncomplicated; F17.210 Nicotine dependence, cigarettes, uncomplicated; Z90.89 Acquired absence of other organs; Z85.72 Personal history of non-Hodgkin lymphomas; Z87.448 Personal history of other diseases of urinary system; Z87.19 Personal history of other diseases of the digestive system; Z90.722 Acquired absence of ovaries, bilateral; Z85.118 Personal history of other malignant neoplasm of bronchus and lung; Z88.0 Allergy status to penicillin; Z88.1 Allergy status to other antibiotic agents; Y08.89XA Assault by other specified means, initial encounter
CPT/HCPCS: 36415; 70450; 70486; 71046; 72125; 80048; 80320; 84703; 85007; 85027; 87040; 96361; 96374; 99283

== ENCOUNTER 2018-04-09 19:52 | Emergency (ER) | payer BC, MEDICAID ==
[~2018-04-09] VITALS: Ht 162.6 cm; Wt 127.0 kg
[~2018-04-09 19:52] MED LIST changes: +AMMONIA INHALATION 0.33 ML AMP ONE
--- OUTSIDE RECORDS SUMMARY | 2018-04-09 19:57 | XMS REPORT | Clinical Summary ---
Author Author [facility] Address Unknown Phone Unavailable Care Team Providers Care Septic Technician Name Role Phone PP Unavailable Allergies Not on File Current Medications Not on file Active Problems Not on file Social History Tobacco Use Types Packs/Day Years Used Date Never Assessed Sex Assigned at Date Recorded Not on file Plan of Treatment Health Maintenance Due Date Last Done Comments HPV Vaccines (1 of 3 - 01/01/2008 Female 3-dose series) Varicella Vaccines (1 of 2009 2 - 2-dose adolescent series) MenB Vaccine (Bexsero) (1 2012 of 2) DTaP,Tdap,and Td Vaccines 01/01/2016 (1 - Tdap) CERVICAL CANCER SCREENING 2017 Results Not on filefrom Last 3 Months
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
[2018-04-09] MEDS ORDERED: NS IV 1000 ML 1,000 ML IV SCH (20:00)
[2018-04-09] MEDS ORDERED: LORazepam INJ 2 MG/ML (ATIVAN) VIAL IVP PRN (20:00)
--- NOTE | 2018-04-09 20:02 | ED Neurological Problem ---
General Chief Complaint: Neurological Problems Stated Complaint: SEIZURE Source: police, EMS Exam Limitations: no limitations History of Present Illness Date Seen by Provider: Apr 09, 2018 Time Seen by Provider: 19:59 Initial Comments To ER per EMS with reports of seizure-like activity. Just prior to arrival while handcuffed in the back of a police car and route to [facility] she began to hyperventilate and she requested her inhaler from the police officers. They were unable to find this, she then began shaking and displaying seizure-like activity so EMS was summoned. They could not obtain IV access so they did give 3 mg of Versed intranasally. Patient reports to me (she is alert upon arrival to ER) that she does have a seizure disorder and takes medication for seizures but she's not had it in about 2 days. She does not recall the name of it and I' m unable to find any indication that she is on antiepileptic medication on her external medication history. She reports to me that she did smoke methamphetamine just a few hours ago. Severity: moderate Associated Symptoms: seizures Allergies and Home Medications Allergies Coded Allergies: amoxicillin (Verified Allergy, Mild, 05/18/13) Penicillins (Verified Allergy, Unknown, 10/04/17) vancomycin (Unverified Allergy, Unknown, 01/24/15) maris syndrome Uncoded Allergies: SURGICAL GLUE (Allergy, Unknown, 03/13/15) Home Medications Oxycodone Hcl/Acetaminophen 1 Each Tablet, 1 EACH PO Q4-6H PRN, (Reported) Patient Home Medication List Home Medication List Reviewed: Yes Review of Systems Constitutional: see HPI Eyes: No Symptoms Reported Ears, Nose, Mouth, Throat: no symptoms reported Respiratory: no symptoms reported Cardiovascular: no symptoms reported Genitourinary: no symptoms reported Musculoskeletal: no symptoms reported Skin: no symptoms reported Psychiatric/Neurological: See HPI, Other (tonic-clonic seizure described by EMS ) Past Sjqfbqt-Znwwle-Yhbsqf Hx Patient Social History Alcohol Use: Denies Use Recreational Drug Use: Yes Drug of Choice: THC, + IV METH USE Smoking Status: Current Everyday Smoker Type Used: Cigarettes 2nd Hand Smoke Exposure: No Recent Hopitalizations: No Immunizations Up To Date Date of Influenza Vaccine: Jun 03, 2012 Seasonal Allergies Seasonal Allergies: No Past Medical History Surgeries: Yes (vp & general counsel shunts) Abdominal, Adenoidectomy, Bladder Surgery, Ear Surgery, Neurological, Tonsillectomy Respiratory: Yes ("PULMONARY LYMPHOMA" ) Cardiac: No Neurological: Yes (FURNITURE SHAMPOOER SHUNT for BENIGN 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) Headaches /Migraines, Seizure Disorder Reproductive Disorders: Yes (12 CM CYST OF THE LEFT SALPINX STATUS POST RESECTION) Female Reproductive Disorders: Denies, Ovarian Cyst, Polycystic Ovarian Dis Genitourinary: No Gastrointestinal: Yes (abdominopelvic adhesions) Musculoskeletal: No Endocrine: Yes (OBESITY) Diabetes, Non-Insulin dep HEENT: No Cancer: Yes ("PULMONARY LYMPHOMA' ) Lymphoma Did You Recieve Any Treatments: No Psychosocial: Yes Pseudo Seizures, Anxiety Integumentary: No Blood Disorders: No Physical Exam Vital Signs Vital Signs - First Documented 04/09/18 19:56 Temp 97.0 Pulse 81 Resp 16 B/P (MAP) 126/73 (90) Pulse Ox 99 Capillary Refill : Height, Weight, BMI Height: 5'4.00" Weight: 273lbs. 0oz. 123.801057ll; 44.62 BMI Method:Stated General Appearance: WD/WN, no apparent distress, obese, other (she is alert, talking to me and follows commands.) HEENT: PERRL/EOMI, normal ENT inspection, other (there is horizontal nystagmus noted. ) Neck: non-tender, full range of motion Respiratory: normal breath sounds, no respiratory distress, no accessory muscle use Cardiovascular: regular rate, rhythm, no murmur Gastrointestinal: normal bowel sounds, non tender, soft Neurologic/Psychiatric: alert, normal mood/affect, oriented x 3 Crainal Nerves: normal hearing, normal speech Motor/Sensory: no motor deficit, no sensory deficit Skin: normal color, warm/dry Progress/Results/Core Measures Results/Orders Lab Results Laboratory Tests Test 04/09/18 20:01 04/09/18 20:36 Range/Units White Blood Count 10.9 4.3-11.0 10^3/uL Red Blood Count 5.13 4.35-5.85 10^6/uL Hemoglobin 14.1 11.5-16.0 G/DL Hematocrit 41 35-52 % Mean Corpuscular Volume 81 80-99 FL Mean Corpuscular Hemoglobin 28 25-34 PG Mean Corpuscular Hemoglobin Concent 34 32-36 G/DL Red Cell Distribution Width 14.0 10.0-14.5 % Platelet Count 238 130-400 10^3/uL Mean Platelet Volume 12.1 H 7.4-10.4 FL Neutrophils (%) (Auto) 61 42-75 % Lymphocytes (%) (Auto) 29 12-44 % Monocytes (%) (Auto) 7 0-12 % Eosinophils (%) (Auto) 2 0-10 % Basophils (%) (Auto) 0 0-10 % Neutrophils # (Auto) 6.7 1.8-7.8 X 10^3 Lymphocytes # (Auto) 3.2 1.0-4.0 X 10^3 Monocytes # (Auto) 0.8 0.0-1.0 X 10^3 Eosinophils # (Auto) 0.2 0.0-0.3 10^3/uL Basophils # (Auto) 0.0 0.0-0.1 10^3/uL Sodium Level 141 135-145 MMOL/L Potassium Level 3.6 3.6-5.0 MMOL/L Chloride Level 109 H 98-107 MMOL/L Carbon Dioxide Level 20 L 21-32 MMOL/L Anion Gap 12 5-14 MMOL/L Blood Urea Nitrogen 11 7-18 MG/DL Creatinine 0.80 0.60-1.30 MG/DL Estimat Glomerular Filtration Rate > 60 BUN/Creatinine Ratio 14 Glucose Level 96 70-105 MG/DL Calcium Level 9.6 8.5-10.1 MG/DL Corrected Calcium 9.6 8.5-10.1 MG/DL Total Bilirubin 0.5 0.1-1.0 MG/DL Aspartate Amino Transf (AST/SGOT) 16 5-34 U/L Alanine Aminotransferase (ALT/SGPT) 19 0-55 U/L Alkaline Phosphatase 60 40-136 U/L Total Protein 7.2 6.4-8.2 GM/DL Albumin 4.0 3.2-4.5 GM/DL Serum Test, Qualitative NEGATIVE NEGATIVE Urine Color YELLOW Urine Clarity CLEAR Urine pH 5 5-9 Urine Specific [place] 1.030 H 1.016-1.022 Urine Protein 2+ H NEGATIVE Urine Glucose (UA) NEGATIVE NEGATIVE Urine Ketones 1+ H NEGATIVE Urine Nitrite NEGATIVE NEGATIVE Urine Bilirubin 1+ H NEGATIVE Urine Urobilinogen 4 H NORMAL MG/DL Urine Leukocyte Esterase 1+ H NEGATIVE Urine RBC (Auto) NEGATIVE NEGATIVE Urine RBC 0-2 /HPF Urine WBC 0-2 /HPF Urine Squamous Epithelial Cells 10-25 H /HPF Urine Crystals NONE /LPF Urine Bacteria MODERATE H /HPF Urine Casts NONE /LPF Urine Mucus NEGATIVE /LPF Urine Culture Indicated NO Urine Opiates Screen NEGATIVE NEGATIVE Urine Oxycodone Screen NEGATIVE NEGATIVE Urine Methadone Screen NEGATIVE NEGATIVE Urine Propoxyphene Screen NEGATIVE NEGATIVE Urine Barbiturates Screen NEGATIVE NEGATIVE Ur Tricyclic Antidepressants Screen NEGATIVE NEGATIVE Urine Phencyclidine Screen NEGATIVE NEGATIVE Urine Amphetamines Screen POSITIVE H NEGATIVE Urine Methamphetamines Screen POSITIVE H NEGATIVE Urine Benzodiazepines Screen NEGATIVE NEGATIVE Urine Cocaine Screen NEGATIVE NEGATIVE Urine Cannabinoids Screen POSITIVE H NEGATIVE My Orders Orders - KATEY العلي CRIME LABORATORY ANALYST Cbc With Automated Diff (04/09/18 19:57) Comprehensive Metabolic Panel (04/09/18 19:57) Ua Culture If Indicated (04/09/18 19:57) Hcg,Qualitative Serum (04/09/18 19:57) Drug Screen Stat (Urine) (04/09/18 19:57) Ns Iv 1000 Ml (Sodium Chloride 0.9%) (04/09/18 20:00) Lorazepam Injection (Ativan Injection) (04/09/18 20:00) Ct Head Wo (04/09/18 20:02) Ekg Tracing (04/09/18 21:41) Medications Given in ED Current Medications Medications Dose Ordered Sig/Laureano Route Start Time Stop Time Status Last Admin Dose Admin Lorazepam 1 mg ONCE PRN IVP 04/09/18 20:00 04/09/18 20:12 1 MG Vital Signs/I&O 04/09/18 19:56 Temp 97.0 Pulse 81 Resp 16 B/P (MAP) 126/73 (90) Pulse Ox 99 Diagnostic Imaging Diagonstic Imaging: CT Comments NAME: ALEJANDRA KAUFMAN [facility] REC#: [id number] PT STATUS: REG ER : 1995 PHYSICIAN: KATEY العلي CRIME LABORATORY ANALYST ADMIT DATE: 04/09/18/ER Draft Date of Exam:04/09/18 CT HEAD WO PROCEDURE: CT head without contrast. TECHNIQUE: Multiple contiguous axial images were obtained through the brain without the use of intravenous contrast. INDICATION: Altered mental status. Unresponsive. History of seizures. COMPARISON: 10/04/2017 FINDINGS: The ventricles and cortical sulci appear age-appropriate. There is no midline shift or mass effect. No acute intracranial hemorrhage is seen. There appears to be decreased attenuation in the left cerebellum, which is not seen on prior scans. The calvarium appears intact. IMPRESSION: 1. Decreased attenuation in the left cerebellum appears new. Focal ischemia is not excluded. Please correlate with clinical findings, and if indicated, consider MRI. 2. No acute intracranial hemorrhage. Dictated on workstation # [id number] Dict: 04/09/182058 Trans: 04/09/182105 [facility] [id number] Interpreted by: PEG CARVER MD Electronically signed by: Departure Communication (Admissions) -decreased attenuation in left surveillance seen on CT. These are new Findings from prior CT. We do not have MRI available here. I discussed with Dr. Zuniga neurologist at [facility] in [place] who recommends transfer to [place] for further evaluation. I spoke with hospitalist Dr. Elise, who graciously accepts the patient in transfer. Patient has been without any seizure -like activity or convulsions here. She remains alert and oriented and can speak with this and does move all extremities. [place] [employer] has released her from custody at this time. In reviewing her old records she does have a history of ventriculoperitoneal shunt which has subsequently been removed. It looks like this was placed by Dr. Barraza/Dr Devlin in [place] the patient is a very poor historian and cannot elaborate on the details of this. This was placed, according to records, for "benign 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". I did speak with our radiology department and Her CT brain images have been clouded to [facility] in [place]. Impression Primary Impression: Methamphetamine abuse Additional Impression: Seizure-like activity Disposition: XFER SHT-TRM HOSP Condition: Stable Departure-Patient Inst. Decision time for Depature: 20:02 Referrals: CODIE ARSHAD MD (PCP/Family) Primary Care Physician Patient Instructions: ALCOHOL AND SUBSTANCE ABUSE, OUTPT SUBSTANCE ABUSE RESOURCE Add. Discharge Instructions: All discharge instructions reviewed with patient and/or family. Voiced understanding. KATEY العلي APRN Apr 09, 2018 20:02
[2018-04-09 20:09] LABS: BASOPHILS % (AUTO) 0 % (0-10); EOSINOPHILS # (AUTO) 0.2 10^3/uL (0.0-0.3); EOSINOPHILS % (AUTO) 2 % (0-10); HEMATOCRIT 41 % (35-52); HEMOGLOBIN 14.1 G/DL (11.5-16.0); LYMPHOCYTES # (AUTO) 3.2 X 10^3 (1.0-4.0); LYMPHOCYTES % (AUTO) 29 % (12-44); MEAN CORPUSCULAR HEMOGLOBIN 28 PG (25-34); MEAN CORPUSCULAR HGB CONC 34 G/DL (32-36); MEAN CORPUSCULAR VOLUME 81 FL (80-99); MEAN PLATELET VOLUME 12.1 FL (7.4-10.4); MONOCYTES # (AUTO) 0.8 X 10^3 (0.0-1.0); MONOCYTES % (AUTO) 7 % (0-12); NEUTROPHILS # (AUTO) 6.7 X 10^3 (1.8-7.8); NEUTROPHILS % (AUTO) 61 % (42-75); PLATELET COUNT 238 10^3/uL (130-400); RED BLOOD COUNT 5.13 10^6/uL (4.35-5.85); WHITE BLOOD COUNT 10.9 10^3/uL (4.3-11.0)
[2018-04-09 20:30] LABS: ALANINE AMINOTRANSFERASE 19 U/L (0-55); ALKALINE PHOSPHATASE 60 U/L (40-136); BILIRUBIN,TOTAL 0.5 MG/DL (0.1-1.0); BUN/CREATININE RATIO 14; CALCIUM 9.6 MG/DL (8.5-10.1); CARBON DIOXIDE 20 MMOL/L (21-32); CHLORIDE 109 MMOL/L (98-107); GFR ESTIMATED > 60; GLUCOSE 96 MG/DL (70-105); POTASSIUM 3.6 MMOL/L (3.6-5.0); SODIUM 141 MMOL/L (135-145); TOTAL PROTEIN 7.2 GM/DL (6.4-8.2)
[2018-04-09 20:46] LABS: CLARITY,URINE CLEAR; COLOR,URINE YELLOW; GLUCOSE, URINE (UA) NEGATIVE (NEGATIVE); KETONES,URINE 1+ (NEGATIVE); LEUKOCYTE ESTERASE ,URINE 1+ (NEGATIVE); NITRITE,URINE NEGATIVE (NEGATIVE); PH,URINE 5 (5-9); PROTEIN,URINE 2+ (NEGATIVE); UROBILINOGEN,URINE 4 MG/DL (NORMAL)
[2018-04-09 20:54] LABS: BACTERIA,URINE MODERATE /HPF; RBC,URINE 0-2 /HPF; WBC,URINE 0-2 /HPF
[2018-04-09 20:57] LABS: BENZODIAZEPINES SCREEN URINE NEGATIVE (NEGATIVE); COCAINE SCREEN URINE NEGATIVE (NEGATIVE)
[2018-04-09 20:58] LABS: AMPHETAMINE SCREEN, URINE POSITIVE (NEGATIVE); BARBITURATE SCREEN URINE NEGATIVE (NEGATIVE); CANNABINOID SCREEN, URINE POSITIVE (NEGATIVE); METHADONE STAT NEGATIVE (NEGATIVE); METHAMPHETAMINE SCREEN URINE S POSITIVE (NEGATIVE); OPIATE SCREEN URINE NEGATIVE (NEGATIVE); OXYCODONE STAT NEGATIVE (NEGATIVE); PROPOXYPHENE STAT NEGATIVE (NEGATIVE); TRICYCLIC ANTIDEPRESSANTS SCRE NEGATIVE (NEGATIVE)
--- NOTE | 2018-04-09 21:06 | Diagnostic Imaging Report ---
PROCEDURE: CT head without contrast. TECHNIQUE: Multiple contiguous axial images were obtained through the brain without the use of intravenous contrast. INDICATION: Altered mental status. Unresponsive. History of seizures. COMPARISON: 10/04/2017 FINDINGS: The ventricles and cortical sulci appear age-appropriate. There is no midline shift or mass effect. No acute intracranial hemorrhage is seen. There appears to be decreased attenuation in the left cerebellum, which is not seen on prior scans. The calvarium appears intact. IMPRESSION: 1. Decreased attenuation in the left cerebellum appears new. Focal ischemia is not excluded. Please correlate with clinical findings, and if indicated, consider MRI. 2. No acute intracranial hemorrhage. Dictated by: Dictated on workstation # [id number]
[2018-04-09 22:29] VITALS: BP 132/63
[2018-04-10 09:24] LABS: BILIRUBIN,URINE 1+ (NEGATIVE)
== END 2018-04-09 22:29 | disposition short-term general hospital (02) ==
LOC: EDUNIT# 19:52 → ER 19:53
DX: G40.909 Epilepsy, unspecified, not intractable, without status epilepticus (principal); F15.10 Other stimulant abuse, uncomplicated; G43.909 Migraine, unspecified, not intractable, without status migrainosus; E66.9 Obesity, unspecified; E11.9 Type 2 diabetes mellitus without complications; F41.9 Anxiety disorder, unspecified; F12.10 Cannabis abuse, uncomplicated; F17.210 Nicotine dependence, cigarettes, uncomplicated; Z90.89 Acquired absence of other organs; Z87.448 Personal history of other diseases of urinary system; Z87.42 Personal history of other diseases of the female genital tract; Z88.0 Allergy status to penicillin; Z88.8 Allergy status to other drugs, medicaments and biological substances; Z68.42 Body mass index [BMI] 45.0-49.9, adult
CPT/HCPCS: 36415; 70450; 80053; 80306; 81000; 84703; 85025; 93005; 96361; 96374

== ENCOUNTER 2018-08-12 20:23 | Emergency (ER) | payer BC, MEDICAID ==
[~2018-08-12] VITALS: Ht 172.7 cm; Wt 90.7 kg
[~2018-08-12 20:23] MED LIST changes: -AMMONIA INHALATION 0.33 ML AMP ONE; +NITR-65 PO
--- OUTSIDE RECORDS SUMMARY | 2018-08-12 20:27 | XMS REPORT | Clinical Summary ---
Author Author [facility] Address Unknown Phone Unavailable Care Team Providers Care Microfilm Camera Operator Name Role Phone PP Unavailable Allergies Not [...] (1 - Tdap) CERVICAL CANCER SCREENING 2017 Influenza Vaccine (#1) 2018 Results Not on filefrom Last 3 Months
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
[2018-08-12] MEDS ORDERED: IBUPROFEN 800 MG (MOTRIN) TAB PO ONE (21:00)
[2018-08-12] MEDS ORDERED: ACETAMINOPHEN 500 MG TAB (TYLENOL) PO ONE (21:00)
--- NOTE | 2018-08-12 22:25 | Diagnostic Imaging Report ---
Examination: Left ankle, 3 views Indication: Left ankle pain after fall. Comparison: None. Findings: No fracture or acute osseous abnormality. Bony alignment is maintained. Intact ankle mortise. No significant arthritic change. Impression: No acute fracture or dislocation. Dictated by: Dictated on workstation # [id number]
--- NOTE | 2018-08-12 22:26 | Diagnostic Imaging Report ---
Examination: Left foot, 3 views Indication: Left foot pain after fall. Comparison: None. Findings: No fracture or acute osseous abnormality. Bony alignment is maintained. No significant arthritic change. Soft tissues are unremarkable. Impression: No acute fracture or dislocation. Dictated by: Dictated on workstation # [id number]
[2018-08-12 23:02] VITALS: BP 120/76
== END 2018-08-12 23:06 | disposition home or self-care (01) ==
LOC: EDUNIT# 20:23 → ER 20:24
DX: S93.402A Sprain of unspecified ligament of left ankle, initial encounter (principal); G43.909 Migraine, unspecified, not intractable, without status migrainosus; G40.909 Epilepsy, unspecified, not intractable, without status epilepticus; E11.9 Type 2 diabetes mellitus without complications; E66.9 Obesity, unspecified; F41.9 Anxiety disorder, unspecified; F12.10 Cannabis abuse, uncomplicated; F15.10 Other stimulant abuse, uncomplicated; Z90.89 Acquired absence of other organs; Z88.0 Allergy status to penicillin; Z87.448 Personal history of other diseases of urinary system; Z68.41 Body mass index [BMI] 40.0-44.9, adult; Z85.72 Personal history of non-Hodgkin lymphomas; Z88.8 Allergy status to other drugs, medicaments and biological substances; W17.2XXA Fall into hole, initial encounter
CPT/HCPCS: 73610; 73630

== ENCOUNTER 2018-10-19 20:06 | Emergency (ER) | payer BC ==
[~2018-10-19] VITALS: Ht 162.6 cm; Wt 111.1 kg
--- OUTSIDE RECORDS SUMMARY | 2018-10-19 20:11 | XMS REPORT | Clinical Summary ---
Author Author [facility] [place] Address Unknown Phone Unavailable Care Team Providers Care Over Short And Damage Clerk Name Role Phone PP Unavailable Allergies Not on File Medications Not on file Active Problems Not on file Social History Date Tobacco Use Types Packs/Day Years Used Never Assessed Sex Assigned at Date Recorded Not on file Industry Job Start Date Occupation Not on file Not on file Not on file Travel End Travel History Travel Start No recent travel history available. Plan of Treatment Health Maintenance Due Date Last Done Comments Varicella Vaccines (1 of 2009 2 - 13+ 2-dose series) HPV Vaccines (1 - Female 01/01/2012 3-dose series) MenB Vaccine (Bexsero) (1 2012 of 2) DTaP,Tdap,and Td Vaccines 01/01/2016 (1 - Tdap) CERVICAL CANCER SCREENING 2017 Influenza Vaccine (#1) 2018 Results Not on filefrom Last 3 Months
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
[2018-10-19 20:35] LABS: BASOPHILS % (AUTO) 0 % (0-10); EOSINOPHILS # (AUTO) 0.5 10^3/uL (0.0-0.3); EOSINOPHILS % (AUTO) 4 % (0-10); HEMATOCRIT 43 % (35-52); HEMOGLOBIN 14.5 G/DL (11.5-16.0); LYMPHOCYTES # (AUTO) 3.6 X 10^3 (1.0-4.0); LYMPHOCYTES % (AUTO) 27 % (12-44); MEAN CORPUSCULAR HEMOGLOBIN 28 PG (25-34); MEAN CORPUSCULAR HGB CONC 34 G/DL (32-36); MEAN CORPUSCULAR VOLUME 81 FL (80-99); MEAN PLATELET VOLUME 11.4 FL (7.4-10.4); MONOCYTES # (AUTO) 0.9 X 10^3 (0.0-1.0); MONOCYTES % (AUTO) 6 % (0-12); NEUTROPHILS # (AUTO) 8.5 X 10^3 (1.8-7.8); NEUTROPHILS % (AUTO) 63 % (42-75); PLATELET COUNT 265 10^3/uL (130-400); RED CELL DISTRIBUTION WIDTH 14.1 % (10.0-14.5); WHITE BLOOD COUNT 13.6 10^3/uL (4.3-11.0)
[2018-10-19 20:48] LABS: PROTHROMBIN TIME PATIENT 13.2 SEC (12.2-14.7)
[2018-10-19 20:56] LABS: ALANINE AMINOTRANSFERASE 21 U/L (0-55); ALBUMIN 3.8 GM/DL (3.2-4.5); ALKALINE PHOSPHATASE 72 U/L (40-136); AMYLASE 51 U/L (25-125); BILIRUBIN,TOTAL 0.2 MG/DL (0.1-1.0); BUN/CREATININE RATIO 13; CALCIUM 9.3 MG/DL (8.5-10.1); CARBON DIOXIDE 24 MMOL/L (21-32); CHLORIDE 104 MMOL/L (98-107); CREATINE KINASE 41 U/L (29-168); CREATININE SERUM 0.79 MG/DL (0.60-1.30); GFR ESTIMATED > 60; GLUCOSE 98 MG/DL (70-105); LIPASE 15 U/L (8-78); MAGNESIUM 2.1 MG/DL (1.8-2.4); POTASSIUM 3.6 MMOL/L (3.6-5.0); SODIUM 140 MMOL/L (135-145); TOTAL PROTEIN 7.4 GM/DL (6.4-8.2)
[2018-10-19 21:03] LABS: CREATINE KINASE MB 0.7 NG/ML (<6.6)
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
[2018-10-19] MEDS ORDERED: RECEIVED CONTRAST (Hold Metformin) IV SCH (21:30)
[2018-10-19] MEDS ORDERED: NS 100 ML (IVPB) BAG IV ONE (21:30)
[2018-10-19] MEDS ORDERED: IOHEXOL 350 MG/ML 100 ML (OMNIPAQUE 350) VIAL IV ONE (21:30)
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
--- NOTE | 2018-10-19 22:01 | Diagnostic Imaging Report ---
PROCEDURE: CT abdomen and pelvis with contrast. TECHNIQUE: Multiple contiguous axial images were obtained through the abdomen and pelvis after administration of intravenous contrast. INDICATION: Abdominal pain. COMPARISON: None available. FINDINGS: Lower chest: The lung bases are clear. No pericardial or pleural effusion. Peritoneum: No free intraperitoneal air or fluid. Liver and biliary system: The liver is normal. The gallbladder is normal. No biliary duct dilation. Spleen and pancreas: Spleen is normal. The pancreas enhances normally without mass lesion or peripancreatic inflammatory changes. Adrenals: Normal. tract: The kidneys enhance normally without suspicious mass or obstruction. Urinary bladder is distended without wall thickening. Dominant left ovarian cyst/follicle measures 4.4 x 4.4 cm. Uterus is normal in appearance. GI tract: Stomach is filled with fluid and food debris and there is no wall thickening. No bowel obstruction. No pericolonic inflammatory changes. Normal appendix. Vasculature and lymph nodes: Normal caliber aorta. No abdominal or pelvic lymphadenopathy. Musculoskeletal: No concerning osseous lesion. IMPRESSION: No acute abnormality in the abdomen or pelvis. Dictated by: Dictated on workstation # [id number]
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
[2018-10-19] MEDS ORDERED: KETOROLAC 30 MG/ML VIAL IVP ONE (22:15)
[2018-10-19] MEDS ORDERED: ORPHENADRINE 60 MG/2 ML (NORFLEX) AMP IV ONE (22:15)
[2018-10-19] MEDS ORDERED: ORPHENADRINE 60 MG/2 ML (NORFLEX) AMP ONE (22:16)
[2018-10-19] MEDS ORDERED: KETOROLAC 30 MG/ML VIAL ONE (22:16)
[2018-10-19 22:34] LABS: BILIRUBIN,URINE NEGATIVE (NEGATIVE); CLARITY,URINE CLEAR; COLOR,URINE YELLOW; GLUCOSE, URINE (UA) NEGATIVE (NEGATIVE); KETONES,URINE NEGATIVE (NEGATIVE); LEUKOCYTE ESTERASE ,URINE 2+ (NEGATIVE); NITRITE,URINE NEGATIVE (NEGATIVE); PH,URINE 6 (5-9); PROTEIN,URINE 1+ (NEGATIVE); UROBILINOGEN,URINE NORMAL (NORMAL)
[2018-10-19 22:42] LABS: BACTERIA,URINE TRACE /HPF; RBC,URINE RARE /HPF; WBC,URINE 0-2 /HPF
[2018-10-19 22:58] LABS: AMPHETAMINE SCREEN, URINE POSITIVE (NEGATIVE); BARBITURATE SCREEN URINE NEGATIVE (NEGATIVE); BENZODIAZEPINES SCREEN URINE NEGATIVE (NEGATIVE); CANNABINOID SCREEN, URINE POSITIVE (NEGATIVE); COCAINE SCREEN URINE NEGATIVE (NEGATIVE); METHADONE STAT NEGATIVE (NEGATIVE); METHAMPHETAMINE SCREEN URINE S POSITIVE (NEGATIVE); OPIATE SCREEN URINE NEGATIVE (NEGATIVE); OXYCODONE STAT NEGATIVE (NEGATIVE); PROPOXYPHENE STAT NEGATIVE (NEGATIVE); TRICYCLIC ANTIDEPRESSANTS SCRE NEGATIVE (NEGATIVE)
[2018-10-19] MEDS ORDERED: RX-CYCLOBENZAPRINE 10 MG (FLEXERIL) TAB PPK#3 PO STA (22:58)
[2018-10-19] MEDS ORDERED: RX-NAPROXEN (NAPROSYN) 250 MG TAB PPK#4 PO STA (22:58)
[2018-10-19] MEDS ORDERED: CYCL10TA9 PO (22:58)
[2018-10-19] MEDS ORDERED: NAPR-915 PO (22:58)
[2018-10-19] MEDS ORDERED: RX-NAPROXEN (NAPROSYN) 250 MG TAB PPK#4 PO ONE (23:15)
[2018-10-19] MEDS ORDERED: RX-CYCLOBENZAPRINE 10 MG (FLEXERIL) TAB PPK#3 PO ONE (23:15)
[2018-10-19 23:22] VITALS: BP 111/65
== END 2018-10-19 23:25 | disposition home or self-care (01) ==
LOC: EDUNIT# 20:06 → ER 20:07
DX: S39.012A Strain of muscle, fascia and tendon of lower back, initial encounter (principal); S30.1XXA Contusion of abdominal wall, initial encounter; G43.909 Migraine, unspecified, not intractable, without status migrainosus; G40.909 Epilepsy, unspecified, not intractable, without status epilepticus; E66.9 Obesity, unspecified; E11.9 Type 2 diabetes mellitus without complications; F41.9 Anxiety disorder, unspecified; Z68.41 Body mass index [BMI] 40.0-44.9, adult; Z85.72 Personal history of non-Hodgkin lymphomas; Z87.448 Personal history of other diseases of urinary system; Z88.0 Allergy status to penicillin; Z88.1 Allergy status to other antibiotic agents; Z90.89 Acquired absence of other organs; Z98.890 Other specified postprocedural states; Y08.89XA Assault by other specified means, initial encounter; Y92.59 Other trade areas as the place of occurrence of the external cause
CPT/HCPCS: 36415; 72128; 72131; 72170; 74022; 74177; 80053; 80306; 80320; 81000; 82150; 82550; 82553; 82962; 83690; 83735; 84703; 85025; 85610; 85730; 93041

== ENCOUNTER 2019-03-11 16:29 | Emergency (ER) | payer BC ==
[~2019-03-11] VITALS: Ht 162.6 cm; Wt 111.1 kg
[~2019-03-11 16:29] MED LIST changes: +AMMONIA INHALATION 0.33 ML AMP ONE; +CYCL10TA9 PO; +NAPR-915 PO
--- OUTSIDE RECORDS SUMMARY | 2019-03-11 16:35 | XMS REPORT | Encounter Summary ---
Author Author [facility] Address Unknown Phone Unavailable Care Team Providers Care Instrument Mechanics Supervisor Name Role Phone PCP Unavailable Encounter Details Care Team Description Date Type Department Rosy Richards MD [address] [place] [address] [phone] 07/14/2009 Historical LABORATORY Orders [address] [place] [address] [id number] [place] [address] Social History Date Tobacco Use Types Packs/Day Years Used Never Assessed Sex Assigned at Date Recorded Not on file Industry Job Start Date Occupation Not on file Not on file Not on file Travel End Travel History Travel Start No recent travel history available. documented as of this encounter Plan of Treatment Not on filedocumented as of this encounter Procedures Comments Procedure Name Priority Date/Time Associated Diagnosis CBC AND DIFFERENTIAL Routine 07/14/2009 6:48 AM TECHNICAL SERVICES ANALYST TSH Routine 07/14/2009 6:48 AM TECHNICAL SERVICES ANALYST COMPREHENSIVE METABOLIC Routine 07/14/2009 PANEL 6:48 AM TECHNICAL SERVICES ANALYST DRUG SCREEN (8) MEDICAL Routine 07/14/2009 3:30 AM TECHNICAL SERVICES ANALYST documented in this encounter Results * TSH (07/14/2009 6:48 AM TECHNICAL SERVICES ANALYST) TSH 4.260 (H) 0.300 - 4.000 uIU/mL [facility] Specimen Performing Organization Address City/State/Zipcode Phone Number [facility] [address] [place], [place] [phone] [facility] * COMPREHENSIVE METABOLIC PANEL (07/14/2009 6:48 AM TECHNICAL SERVICES ANALYST) Albumin 4.2 3.4 - 4.8 g/dL [facility] Alkaline 106 100 - 320 U/L [facility] Phosphatase ALT 21 6 - 42 U/L [facility] AST 17 15 - 45 U/L [facility] Total Bilirubin <0.3 0.3 - 1.2 mg/dL [facility] BUN, Bld 11 6 - 20 mg/dL [facility] Calcium 9.5 8.7 - 10.5 mg/dL [facility] Chloride 107 99 - 111 mmol/L [facility] Creatinine 0.6 0.5 - 1.0 mg/dL [facility] Glucose 96 74 - 106 mg/dL [facility] Potassium 4.3 3.6 - 4.9 mmol/L [facility] Total Protein 6.3 (L) 6.4 - 8.3 g/dL [facility] Sodium 142 136 - 145 mmol/L [facility] CO2 28 20 - 36 mmol/L [facility] Specimen Performing Organization Address City/[facility] Phone Number [facility] [address] [place] [phone] [facility] * CBC AND DIFFERENTIAL (07/14/2009 6:48 AM TECHNICAL SERVICES ANALYST) WBC 10.5 4.5 - 13.0 10 3/cumm [facility] RBC 4.96 (H) 3.40 - 4.70 10 [facility] 6/cumm Hemoglobin 13.6 12.0 - 16.0 g/dL [facility] Hematocrit 39.3 34.0 - 40.7 % [facility] MCV 79.2 78.0 - 102.0 fL [facility] MCH 27.4 26.7 - 31.7 pg [facility] MCHC 34.6 33.2 - 34.7 g/dL [facility] RDW 14.1 10.0 - 14.8 % [facility] Platelets 223 185 - 335 10 3/cumm [facility] MPV 9.5 (H) 7.5 - 9.3 fL [facility] Neutrophils % 58.4 42.0 - 78.0 % [facility] Lymphocytes % 32.3 13.0 - 41.0 % [facility] Monocytes % 6.4 3.0 - 13.0 % [facility] Eosinophils % 2.6 0.0 - 5.0 % [facility] Basophils % 0.3 0.0 - 2.5 % [facility] Specimen Performing Organization Address [facility] Phone Number [facility] [address] [place] [phone] [facility] * DRUG SCREEN (8) MEDICAL (07/14/2009 3:30 AM TECHNICAL SERVICES ANALYST) Amphetamine NEGATIVE Cutoff 1000 ng/mL [facility] Barbiturates NEGATIVE Cutoff 200 ng/mL [facility] Benzodiazepines NEGATIVE Cutoff 200 ng/mL [facility] Cocaine NEGATIVE Cutoff 300 ng/mL [facility] (Metabolite) Opiates NEGATIVE Cutoff 300 ng/mL [facility] PCP NEGATIVE Cutoff 25 ng/mL [facility] THC NEGATIVE Cutoff 50 ng/mL [facility] MDMA NEGATIVE Cutoff 500 ng/mL [facility] Specimen Performing Organization Address City/State/Zipcode Phone Number [facility] [address] [place], [place] [phone] [facility] documented in this encounter Visit Diagnoses Not on filedocumented in this encounter
--- OUTSIDE RECORDS SUMMARY | 2019-03-11 16:35 | XMS REPORT | Clinical Summary ---
Author Author [facility] Address Unknown Phone Unavailable Care Team Providers Care Security Installation Sales Technician Name Role Phone PP Unavailable Allergies [...] DTaP,Tdap,and Td Vaccines 01/01/2016 (1 - Tdap) MMR Vaccines-Adult 01/01/2016 Cervical Cancer Screening 2017 Influenza Vaccine (#1) 2019 Pneumo-Vaccine: 65+Yrs (1 2061 of 2 - PCV13) Pneumo-Vaccine: Peds (0-5 Aged Out No longer eligible based Yrs) & At-Risk Patients on patient's age to (6-64 Yrs) complete this topic Results Not on filefrom Last 3 Months
--- OUTSIDE RECORDS SUMMARY | 2019-03-11 16:35 | XMS REPORT | Encounter Summary ---
Author Author [facility] Address Unknown Phone Unavailable Care Team Providers Care Animal Health Technician Name Role Phone PCP Unavailable Encounter Details Care Team Description Date Type Department Byron Colbert MD [address] [place] [address] 07/14/2009 Historical LABORATORY Orders [address] [facility] [id number] [place] [address] Social History Date Tobacco [...] Comments Procedure Name Priority Date/Time Associated Diagnosis BEDSIDE GLUCOSE - NURSE Routine 07/14/2009 4:09 AM MEDICAL REVIEW COORDINATOR documented in this encounter Results * BEDSIDE GLUCOSE - NURSE (07/14/2009 4:09 AM MEDICAL REVIEW COORDINATOR) Bedside Glucose 76Comment: Notify Nurse 70 - 105 mg/dL [facility] - Nurse Specimen Performing Organization Address City/State/Zipcode Phone Number [facility] [address] [place], [place] [phone] [facility] documented in this encounter Visit Diagnoses Not on filedocumented in this encounter
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
--- NOTE | 2019-03-11 16:54 | ED Neurological Problem ---
General Chief Complaint: Neurological Problems Stated Complaint: SEIZURE Source: patient Exam Limitations: no limitations History of Present Illness Date Seen by Provider: Mar 11, 2019 Time Seen by Provider: 16:51 Initial Comments [place]. The rail car driver of the car was being arrested and tased by police. Patient was to be arrested as well but stated to police that she could not have her hands behind h er or she would seize. Sure enough police arrested her and she began with convulsions. No loss of bowel or bladder control. She is able to communicate with us during these seizure-like activities. EMS did find a small vial with suspected methamphetamine in her [facility] and this was handed over to the police. Patient states that the gentleman got arrested handed her a pill without knowing what it was and she took it. Timing/Duration: 1/2 hour Severity: moderate Associated Symptoms: denies symptoms Allergies and Home Medications Allergies Coded Allergies: amoxicillin (Verified Allergy, Mild, 05/18/13) Penicillins (Verified Allergy, Unknown, 10/04/17) vancomycin (Unverified Allergy, Unknown, 01/24/15) maris syndrome Uncoded Allergies: SURGICAL GLUE (Allergy, Unknown, 03/13/15) Home Medications Cephalexin 500 Mg Capsule, 500 MG PO TID Prescribed by: KATEY العلي on 03/11/191814 Cyclobenzaprine HCl 10 Mg Tablet, 10 MG PO Q8H Prescribed by: SHAILESH VAZQUEZ on 10/19/182257 Naproxen 500 Mg Tablet, 500 MG PO BID Prescribed by: SHAILESH VAZQUEZ on 10/19/182257 Nitrofurantoin Monohyd/M-Cryst 100 Mg Capsule, 100 MG PO BID Prescribed by: SHAILESH VAZQUEZ on 05/01/18 2142 Oxycodone Hcl/Acetaminophen 1 Each Tablet, 1 EACH PO Q4-6H PRN, (Reported) Patient Home Medication List Home Medication List Reviewed: Yes Review of Systems Review of Systems Constitutional: see HPI Eyes: No Symptoms Reported Ears, Nose, Mouth, Throat: no symptoms reported Respiratory: no symptoms reported Cardiovascular: no symptoms reported Genitourinary: no symptoms reported Musculoskeletal: no symptoms reported Skin: no symptoms reported Psychiatric/Neurological: See HPI, Tonic Clonic Seizures Endocrine: No Symptoms Reported Hematologic/Lymphatic: No Symptoms Reported Past Brtujxk-Xwxday-Xydzlg Hx Patient Social History Drug of Choice: THC, + IV METH USE Type Used: Cigarettes 2nd Hand Smoke Exposure: No Recent Foreign Travel: No Contact w/Someone Who Travel: No Recent Hopitalizations: No Immunizations Up To Date Tetanus Booster (TDap): Unknown Date of Influenza Vaccine: Jun 03, 2012 Seasonal Allergies Seasonal Allergies: No Past Medical History Surgeries: Yes Abdominal, Adenoidectomy, Bladder Surgery, Ear Surgery, Neurological, Tonsillectomy Respiratory: Yes Cardiac: No Neurological: Yes (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 SHUNT for BENIGN INTRACRANIAL HYPERTENSION) Headaches /Migraines, Seizure Disorder Reproductive Disorders: Yes (12 CM CYST OF THE LEFT SALPINX STATUS POST RESECTION) Female Reproductive Disorders: Denies, Menstrual Problems, Ovarian Cyst, Polycystic Ovarian Dis Genitourinary: No Gastrointestinal: Yes (abdominopelvic adhesions) Musculoskeletal: No Endocrine: Yes Diabetes, Non-Insulin dep HEENT: No Cancer: Yes Lymphoma Did You Recieve Any Treatments: No Psychosocial: Yes Pseudo Seizures, Anxiety Integumentary: No Blood Disorders: No Physical Exam Vital Signs Vital Signs - First Documented 03/11/19 16:33 Temp 98.6 Pulse 118 Resp 18 B/P (MAP) 110/88 (95) Pulse Ox 100 O2 Delivery Room Air Capillary Refill : Height, Weight, BMI Height: 5'4.00" Weight: 245lbs. 0oz. 111.281424jg; 44.62 BMI Method:Stated General Appearance: WD/WN, no apparent distress, other (patient had seizing convulsion like activity from the time of being arrested until presentation to the emergency room which was about 20 minutes they state. Upon arrival to ER she is still having convulsions affecting all 4 extremities but is able to converse with me.) HEENT: PERRL/EOMI, normal ENT inspection Respiratory: normal breath sounds, no respiratory distress, no accessory muscle use Cardiovascular: regular rate, rhythm, no murmur Gastrointestinal: normal bowel sounds, non tender, soft Neurologic/Psychiatric: alert, oriented x 3 Crainal Nerves: normal hearing, normal speech Progress/Results/Core Measures Results/Orders Lab Results Laboratory Tests Test 03/11/19 17:10 03/11/19 17:52 Range/Units White Blood Count 11.2 H 4.3-11.0 10^3/uL Red Blood Count 5.30 4.35-5.85 10^6/uL Hemoglobin 14.1 11.5-16.0 G/DL Hematocrit 42 35-52 % Mean Corpuscular Volume 80 80-99 FL Mean Corpuscular Hemoglobin 27 25-34 PG Mean Corpuscular Hemoglobin Concent 33 32-36 G/DL Red Cell Distribution Width 14.1 10.0-14.5 % Platelet Count 226 130-400 10^3/uL Mean Platelet Volume 11.9 H 7.4-10.4 FL Neutrophils (%) (Auto) 73 42-75 % Lymphocytes (%) (Auto) 18 12-44 % Monocytes (%) (Auto) 6 0-12 % Eosinophils (%) (Auto) 3 0-10 % Basophils (%) (Auto) 0 0-10 % Neutrophils # (Auto) 8.2 H 1.8-7.8 X 10^3 Lymphocytes # (Auto) 2.0 1.0-4.0 X 10^3 Monocytes # (Auto) 0.7 0.0-1.0 X 10^3 Eosinophils # (Auto) 0.3 0.0-0.3 10^3/uL Basophils # (Auto) 0.0 0.0-0.1 10^3/uL Sodium Level 142 135-145 MMOL/L Potassium Level 4.0 3.6-5.0 MMOL/L Chloride Level 109 H 98-107 MMOL/L Carbon Dioxide Level 23 21-32 MMOL/L Anion Gap 10 5-14 MMOL/L Blood Urea Nitrogen 10 7-18 MG/DL Creatinine 0.84 0.60-1.30 MG/DL Estimat Glomerular Filtration Rate > 60 BUN/Creatinine Ratio 12 Glucose Level 101 70-105 MG/DL Calcium Level 9.4 8.5-10.1 MG/DL Corrected Calcium 9.6 8.5-10.1 MG/DL Total Bilirubin 0.2 0.1-1.0 MG/DL Aspartate Amino Transf (AST/SGOT) 14 5-34 U/L Alanine Aminotransferase (ALT/SGPT) 15 0-55 U/L Alkaline Phosphatase 68 40-136 U/L Total Protein 7.0 6.4-8.2 GM/DL Albumin 3.8 3.2-4.5 GM/DL Serum Test, Qualitative NEGATIVE NEGATIVE Urine Color YELLOW Urine Clarity CLEAR Urine pH 6.5 5-9 Urine Specific Mclean 1.015 L 1.016-1.022 Urine Protein NEGATIVE NEGATIVE Urine Glucose (UA) NEGATIVE NEGATIVE Urine Ketones NEGATIVE NEGATIVE Urine Nitrite NEGATIVE NEGATIVE Urine Bilirubin NEGATIVE NEGATIVE Urine Urobilinogen 1 NORMAL MG/DL Urine Leukocyte Esterase 3+ H NEGATIVE Urine RBC (Auto) NEGATIVE NEGATIVE Urine RBC NONE /HPF Urine WBC 10-25 H /HPF Urine Squamous Epithelial Cells 10-25 H /HPF Urine Crystals NONE /LPF Urine Bacteria TRACE /HPF Urine Casts NONE /LPF Urine Mucus NEGATIVE /LPF Urine Culture Indicated YES Urine Opiates Screen NEGATIVE NEGATIVE Urine Oxycodone Screen NEGATIVE NEGATIVE Urine Methadone Screen NEGATIVE NEGATIVE Urine Propoxyphene Screen NEGATIVE NEGATIVE Urine Barbiturates Screen NEGATIVE NEGATIVE Ur Tricyclic Antidepressants Screen NEGATIVE NEGATIVE Urine Phencyclidine Screen NEGATIVE NEGATIVE Urine Amphetamines Screen POSITIVE H NEGATIVE Urine Methamphetamines Screen POSITIVE H NEGATIVE Urine Benzodiazepines Screen NEGATIVE NEGATIVE Urine Cocaine Screen NEGATIVE NEGATIVE Urine Cannabinoids Screen NEGATIVE NEGATIVE My Orders Orders - KATEY العلي CHEESE BLENDER Cbc With Automated Diff (03/11/19 16:48) Comprehensive Metabolic Panel (03/11/19 16:48) Ua Culture If Indicated (03/11/19 16:48) Drug Screen Stat (Urine) (03/11/19 16:48) Hcg,Qualitative Serum (03/11/19 16:48) Lactated Ringers (Lr 1000 Ml Iv Solution (03/11/19 17:00) Lorazepam Injection (Ativan Injection) (03/11/19 17:00) Levetiracetam Tablet (Keppra Tablet) (03/11/19 17:00) Lorazepam Injection (Ativan Injection) (03/11/19 17:45) Levetiracetam Injection (Keppra Injectio (03/11/19 17:45) Urine Culture (03/11/19 17:52) Medications Given in ED Current Medications Medications Dose Ordered Sig/Laureano Route Start Time Stop Time Status Last Admin Dose Admin Levetiracetam 500 mg ONCE ONCE PO 03/11/19 17:00 03/11/19 17:01 DC 03/11/19 17:58 500 MG Lorazepam 1 mg ONCE PRN IVP 03/11/19 17:00 03/11/19 18:32 DC 03/11/19 17:59 1 MG Lorazepam 1 mg Q8HR PRN IVP 03/11/19 17:45 03/11/19 18:32 DC 03/11/19 17:58 1 MG Vital Signs/I&O 03/11/19 03/11/19 16:33 18:18 Temp 98.6 Pulse 118 90 Resp 18 18 B/P (MAP) 110/88 (95) 138/88 (105) Pulse Ox 100 96 O2 Delivery Room Air Room Air Departure Impression Primary Impression: Episode of shaking Additional Impression: Urinary tract infection Qualified Codes: N39.0 - Urinary tract infection, site not specified Disposition: HOME, SELF-CARE Condition: Stable Departure-Patient Inst. Decision time for Depature: 17:40 Referrals: NO,LOCAL PHYSICIAN (PCP/Family) Primary Care Physician Patient Instructions: NO INSTRUCTIONS GIVEN Add. Discharge Instructions: All discharge instructions reviewed with patient and/or family. Voiced understanding. Scripts Cephalexin (Keflex) 500 Mg Capsule 500 MG PO TID, #15 CAP Prov: KATEY العلي CHEESE BLENDER 03/11/19 KATEY العلي CHEESE BLENDER Mar 11, 2019 16:53
[2019-03-11] MEDS ORDERED: LEVETIRACETAM 500 MG (KEPPRA) TAB PO ONE (17:00)
[2019-03-11] MEDS ORDERED: LACTATED RINGERS 1,000 ML IV SCH (17:00)
[2019-03-11] MEDS: LORazepam INJ 2 MG/ML (ATIVAN) VIAL IVP PRN ×2 (17:12→17:59)
--- NOTE | 2019-03-11 17:17 | NUR ---
FAMILY TO BEDSIDE.
[2019-03-11 17:24] LABS: BASOPHILS % (AUTO) 0 % (0-10); EOSINOPHILS # (AUTO) 0.3 10^3/uL (0.0-0.3); EOSINOPHILS % (AUTO) 3 % (0-10); HEMATOCRIT 42 % (35-52); HEMOGLOBIN 14.1 G/DL (11.5-16.0); LYMPHOCYTES % (AUTO) 18 % (12-44); MEAN CORPUSCULAR HEMOGLOBIN 27 PG (25-34); MEAN CORPUSCULAR HGB CONC 33 G/DL (32-36); MEAN CORPUSCULAR VOLUME 80 FL (80-99); MEAN PLATELET VOLUME 11.9 FL (7.4-10.4); MONOCYTES # (AUTO) 0.7 X 10^3 (0.0-1.0); MONOCYTES % (AUTO) 6 % (0-12); NEUTROPHILS # (AUTO) 8.2 X 10^3 (1.8-7.8); NEUTROPHILS % (AUTO) 73 % (42-75); PLATELET COUNT 226 10^3/uL (130-400); RED CELL DISTRIBUTION WIDTH 14.1 % (10.0-14.5); WHITE BLOOD COUNT 11.2 10^3/uL (4.3-11.0)
[2019-03-11 17:36] LABS: ALANINE AMINOTRANSFERASE 15 U/L (0-55); ALBUMIN 3.8 GM/DL (3.2-4.5); ALKALINE PHOSPHATASE 68 U/L (40-136); BILIRUBIN,TOTAL 0.2 MG/DL (0.1-1.0); BUN/CREATININE RATIO 12; CALCIUM 9.4 MG/DL (8.5-10.1); CARBON DIOXIDE 23 MMOL/L (21-32); CHLORIDE 109 MMOL/L (98-107); CREATININE SERUM 0.84 MG/DL (0.60-1.30); GFR ESTIMATED > 60; GLUCOSE 101 MG/DL (70-105); SODIUM 142 MMOL/L (135-145)
[2019-03-11] MEDS ORDERED: LORazepam INJ 2 MG/ML (ATIVAN) VIAL IVP PRN (17:45)
--- NOTE | 2019-03-11 17:52 | NUR ---
AMB TO BATHROOM UA OBTAINED.
[2019-03-11] MEDS: LEVETIRACETAM INJECTION 500 MG in NS (IVPB) 100 ML IV SCH ×2 (17:58→18:28)
[2019-03-11 18:00] LABS: BILIRUBIN,URINE NEGATIVE (NEGATIVE); CLARITY,URINE CLEAR; COLOR,URINE YELLOW; GLUCOSE, URINE (UA) NEGATIVE (NEGATIVE); KETONES,URINE NEGATIVE (NEGATIVE); LEUKOCYTE ESTERASE ,URINE 3+ (NEGATIVE); NITRITE,URINE NEGATIVE (NEGATIVE); PH,URINE 6.5 (5-9); PROTEIN,URINE NEGATIVE (NEGATIVE); UROBILINOGEN,URINE 1 MG/DL (NORMAL)
[2019-03-11 18:09] LABS: BACTERIA,URINE TRACE /HPF
[2019-03-11] MEDS ORDERED: CEPH-507 PO (18:15)
[2019-03-11 18:16] LABS: AMPHETAMINE SCREEN, URINE POSITIVE (NEGATIVE); BARBITURATE SCREEN URINE NEGATIVE (NEGATIVE); BENZODIAZEPINES SCREEN URINE NEGATIVE (NEGATIVE); CANNABINOID SCREEN, URINE NEGATIVE (NEGATIVE); COCAINE SCREEN URINE NEGATIVE (NEGATIVE); METHADONE STAT NEGATIVE (NEGATIVE); METHAMPHETAMINE SCREEN URINE S POSITIVE (NEGATIVE); OPIATE SCREEN URINE NEGATIVE (NEGATIVE); OXYCODONE STAT NEGATIVE (NEGATIVE); PROPOXYPHENE STAT NEGATIVE (NEGATIVE); TRICYCLIC ANTIDEPRESSANTS SCRE NEGATIVE (NEGATIVE)
[2019-03-11 18:18] VITALS: BP 138/88
--- NOTE | 2019-03-11 18:18 | NUR ---
DISCHARGE [employer] ARRIVED TO ARREST PATIENT.
[2019-03-12] MEDS ORDERED: LEVE750T5 PO (17:08)
== END 2019-03-11 18:32 | disposition home or self-care (01) ==
LOC: EDUNIT# 16:29 → ER 16:30
DX: R25.9 Unspecified abnormal involuntary movements (principal); N39.0 Urinary tract infection, site not specified; G40.909 Epilepsy, unspecified, not intractable, without status epilepticus; G43.909 Migraine, unspecified, not intractable, without status migrainosus; E11.9 Type 2 diabetes mellitus without complications; F41.9 Anxiety disorder, unspecified; Z88.1 Allergy status to other antibiotic agents; Z88.0 Allergy status to penicillin; Z90.89 Acquired absence of other organs; Z85.72 Personal history of non-Hodgkin lymphomas
CPT/HCPCS: 36415; 80053; 80306; 81000; 84703; 85025; 87088; 96361; 96374; 96376

== ENCOUNTER 2019-03-12 13:03 | Emergency (ER) | payer BC ==
[~2019-03-12] VITALS: Ht 162.6 cm; Wt 111.1 kg
[~2019-03-12 13:03] MED LIST changes: -AMMONIA INHALATION 0.33 ML AMP ONE; +CEPH-507 PO
--- NOTE | 2019-03-12 13:10 | NUR ---
BED LOCKED IN LOW POSITION WITH SIDE RAILS UP FOR PT SAFETY. PT UNRESPONSIVE AT THIS TIME.
--- NOTE | 2019-03-12 13:35 | NUR ---
PT'S GRANDMOTHER IN AT BEDSIDE AT THIS TIME. SHE STATES THAT THE PT DID NOT GET HER SEIZURE MEDICATION THIS MORNING WHILE IN POLICE CUSTODY, "THEY DIDN'T TO GIVE IT TO HER." ALSO STATES THAT THE PT IS ESTABLISHED WITH A NEUROLOGIST IN [place], [place] AND WOULD LIKE US TO BE ABLE TO SEND HER THERE.
[2019-03-12 13:43] LABS: BASOPHILS % (AUTO) 0 % (0-10); EOSINOPHILS # (AUTO) 0.3 10^3/uL (0.0-0.3); EOSINOPHILS % (AUTO) 3 % (0-10); HEMATOCRIT 45 % (35-52); HEMOGLOBIN 14.9 G/DL (11.5-16.0); LYMPHOCYTES # (AUTO) 2.5 X 10^3 (1.0-4.0); LYMPHOCYTES % (AUTO) 24 % (12-44); MEAN CORPUSCULAR HEMOGLOBIN 26 PG (25-34); MEAN CORPUSCULAR HGB CONC 33 G/DL (32-36); MEAN CORPUSCULAR VOLUME 80 FL (80-99); MEAN PLATELET VOLUME 11.6 FL (7.4-10.4); MONOCYTES # (AUTO) 0.7 X 10^3 (0.0-1.0); MONOCYTES % (AUTO) 7 % (0-12); NEUTROPHILS # (AUTO) 6.8 X 10^3 (1.8-7.8); NEUTROPHILS % (AUTO) 66 % (42-75); PLATELET COUNT 250 10^3/uL (130-400); RED CELL DISTRIBUTION WIDTH 14.4 % (10.0-14.5); WHITE BLOOD COUNT 10.2 10^3/uL (4.3-11.0)
--- NOTE | 2019-03-12 13:45 | NUR ---
PT MUMBLING OCCATIONALLY, UNABLE TO UNDERSTAND WHAT IS BEING SAID.
[2019-03-12 14:06] LABS: ALANINE AMINOTRANSFERASE 20 U/L (0-55); ALBUMIN 4.2 GM/DL (3.2-4.5); ALKALINE PHOSPHATASE 78 U/L (40-136); BILIRUBIN,TOTAL 0.4 MG/DL (0.1-1.0); BUN/CREATININE RATIO 13; CALCIUM 9.7 MG/DL (8.5-10.1); CARBON DIOXIDE 23 MMOL/L (21-32); CHLORIDE 106 MMOL/L (98-107); CREATININE SERUM 0.91 MG/DL (0.60-1.30); GFR ESTIMATED > 60; GLUCOSE 82 MG/DL (70-105); POTASSIUM 3.7 MMOL/L (3.6-5.0); SODIUM 140 MMOL/L (135-145); TOTAL PROTEIN 7.8 GM/DL (6.4-8.2)
--- NOTE | 2019-03-12 14:10 | NUR ---
BOYFRIEND AT BEDSIDE.
[2019-03-12] MEDS ORDERED: NS IV 1000 ML 1,000 ML IV ONE (14:19)
--- NOTE | 2019-03-12 14:20 | NUR ---
OFFICER KARLY WITH THE [employer] CALLED TO CHECK ON THE PT. HE STATED THAT THE PT WAS NOT IN CUSTODY I HAD DOCUMENTED EARLIER BUT HAD COME TO THE POLICE STATION BECAUSE SHE THOUGHT THAT SHE DID NOT GET SOME PERSONAL ITEM BACK FROM WHEN SHE WAS ARRESTED YESTERDAY. THE OFFICER INFORMED HER THAT THEY HAD MISSED A WARRANT FOR HER ARREST FROM ANOTHER CRIME WHEN SHE WAS IN CUSTODY YESTERDAY AND THAT THEY WERE GOING TO ARREST HER AT THIS TIME FOR THAT WARRANT. WHEN INFORMED OF HER ARREST THE PT WENT TO THE FLOOR AND BEGAN TO HAVE A SEIZURE. OFFICER KARLY INFORMED ME THAT THIS IS WHAT HAPPENED YESTERDAY, WHEN THEY WENT TO ARREST HER THE PT STARTED HAVING SEIZURE ACTIVITY.
--- NOTE | 2019-03-12 14:37 | ED Neurological Problem ---
General Chief Complaint: Neurological Problems Stated Complaint: SEIZURE Nursing Triage Note: PT TO RM 5 BY [facility] WITH CC OF HAVING A SEIZURE. PT COMES FROM BEING CUSTODY WITH THE [employer] WHERE SHE BEGAN TO HAVE A SEIZURE FOR ABOUT 10-15 MIN. EMS STATED SHE CONTINUED TO SEIZE SO A TOTAL OF 5 MG OF VERSED WAS GIVEN BY NASAL ROUTE. PT SLEEPING ON ARRIVAL WITH NO FACIAL GRIMACE, NOT RESPONDING TO PAINFUL STEMULI. Nursing Sepsis Screen: No Definite Risk Source: patient Exam Limitations: no limitations History of Present Illness Date Seen by Provider: Mar 12, 2019 Time Seen by Provider: 13:12 Initial Comments Here by EMS with report of seizure at the police station. Apparently she had gone to the police station to retrieve personal items and was noted to have a warrant. When the police officers presented the warrant to her, she had a seizure. She had a seizure yesterday after being placed under arrest as well. The patient's grandmother states that she has seizures under significant stress situations with last seizure at home on Sunday morning. Unknown stressful event for that seizure. She apparently sees a neurologist in [place] and has the next appointment there in early May. Patient reportedly has shunt. There is also reports that she has stage IV lung cancer although not documented in the system. Patient did receive 5 mg of intranasal Versed in the field by EMS and the seizures which subsequently ceased after the administration of medicines. Patient is postictal/sleepy after event and does not answer questions. Information from EMS and family members. Timing/Duration: 1/2 hour, episodic Severity: moderate Associated Symptoms: seizures Allergies and Home Medications Allergies Coded Allergies: amoxicillin (Verified Allergy, Mild, 05/18/13) Penicillins (Verified Allergy, Unknown, 10/04/17) vancomycin (Unverified Allergy, Unknown, 01/24/15) maris syndrome Uncoded Allergies: SURGICAL GLUE (Allergy, Unknown, 03/13/15) Home Medications Cephalexin 500 Mg Capsule, 500 MG PO TID Prescribed by: KATEY العلي on 03/11/191814 Cyclobenzaprine HCl 10 Mg Tablet, 10 MG PO Q8H Prescribed by: SHAILESH VAZQUEZ on 10/19/182257 Naproxen 500 Mg Tablet, 500 MG PO BID Prescribed by: SHAILESH VAZQUEZ on 10/19/182257 Nitrofurantoin Monohyd/M-Cryst 100 Mg Capsule, 100 MG PO BID Prescribed by: SHAILESH VAZQUEZ on 05/01/182141 Oxycodone Hcl/Acetaminophen 1 Each Tablet, 1 EACH PO Q4-6H PRN, (Reported) Patient Home Medication List Home Medication List Reviewed: Yes Review of Systems Review of Systems Constitutional: see HPI Unable to complete review of systems due to altered mental status. Past Oipbupz-Sndlan-Zdnowt Hx Past Med/Social Hx: Reviewed Nursing Past Med/Soc Hx Patient Social History Alcohol Use: Denies Use Recreational Drug Use: Yes Drug of Choice: THC, + IV METH USE Type Used: Cigarettes 2nd Hand Smoke Exposure: No Recent Foreign Travel: No Contact w/Someone Who Travel: No Recent Infectious Disease Expo: No Recent Hopitalizations: No Physical Abuse: No Sexual Abuse: No Mistreated: No Immunizations Up To Date Tetanus Booster (TDap): Unknown Date of Influenza Vaccine: Jun 03, 2012 Seasonal Allergies Seasonal Allergies: No Past Medical History Surgeries: Yes Abdominal, Adenoidectomy, Bladder Surgery, Ear Surgery, Neurological, Tonsillectomy Respiratory: Yes Cardiac: No Neurological: Yes (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 BENIGN INTRACRANIAL HYPERTENSION) Headaches /Migraines, Seizure Disorder Reproductive Disorders: Yes (12 CM CYST OF THE LEFT SALPINX STATUS POST RESECTION) Female Reproductive Disorders: Denies, Menstrual Problems, Ovarian Cyst, Polycystic Ovarian Dis Genitourinary: No Gastrointestinal: Yes (abdominopelvic adhesions) Musculoskeletal: No Endocrine: Yes Diabetes, Non-Insulin dep HEENT: No Cancer: Yes Lymphoma Did You Recieve Any Treatments: No Psychosocial: Yes Pseudo Seizures, Anxiety Integumentary: No Blood Disorders: No Family Medical History Reviewed Nursing Family Hx Seizures Physical Exam Vital Signs Vital Signs - First Documented 03/12/19 13:10 Temp 98.8 Pulse 113 Resp 18 B/P (MAP) 112/66 (81) Pulse Ox 100 O2 Delivery Nasal Cannula O2 Flow Rate 2.00 Capillary Refill : Less Than 3 Seconds Height, Weight, BMI Height: 5'4.00" Weight: 245lbs. 0oz. 111.095237mm; 44.62 BMI Method:Stated General Appearance: WD/WN, no apparent distress, obese HEENT: PERRL/EOMI, pharynx normal Neck: non-tender, full range of motion, supple, normal inspection Respiratory: lungs clear, normal breath sounds Cardiovascular: regular rate, rhythm, no murmur Gastrointestinal: non tender, soft Extremities: non-tender, normal inspection, no pedal edema Neurologic/Psychiatric: other (because he mumbles only. Does not answer questions. Intact airway.) Skin: normal color, warm/dry Progress/Results/Core Measures Results/Orders Lab Results Laboratory Tests Test 03/12/19 13:29 Range/Units White Blood Count 10.2 4.3-11.0 10^3/uL Red Blood Count 5.65 4.35-5.85 10^6/uL Hemoglobin 14.9 11.5-16.0 G/DL Hematocrit 45 35-52 % Mean Corpuscular Volume 80 80-99 FL Mean Corpuscular Hemoglobin 26 25-34 PG Mean Corpuscular Hemoglobin Concent 33 32-36 G/DL Red Cell Distribution Width 14.4 10.0-14.5 % Platelet Count 250 130-400 10^3/uL Mean Platelet Volume 11.6 H 7.4-10.4 FL Neutrophils (%) (Auto) 66 42-75 % Lymphocytes (%) (Auto) 24 12-44 % Monocytes (%) (Auto) 7 0-12 % Eosinophils (%) (Auto) 3 0-10 % Basophils (%) (Auto) 0 0-10 % Neutrophils # (Auto) 6.8 1.8-7.8 X 10^3 Lymphocytes # (Auto) 2.5 1.0-4.0 X 10^3 Monocytes # (Auto) 0.7 0.0-1.0 X 10^3 Eosinophils # (Auto) 0.3 0.0-0.3 10^3/uL Basophils # (Auto) 0.0 0.0-0.1 10^3/uL Sodium Level 140 135-145 MMOL/L Potassium Level 3.7 3.6-5.0 MMOL/L Chloride Level 106 98-107 MMOL/L Carbon Dioxide Level 23 21-32 MMOL/L Anion Gap 11 5-14 MMOL/L Blood Urea Nitrogen 12 7-18 MG/DL Creatinine 0.91 0.60-1.30 MG/DL Estimat Glomerular Filtration Rate > 60 BUN/Creatinine Ratio 13 Glucose Level 82 70-105 MG/DL Calcium Level 9.7 8.5-10.1 MG/DL Corrected Calcium 9.5 8.5-10.1 MG/DL Total Bilirubin 0.4 0.1-1.0 MG/DL Aspartate Amino Transf (AST/SGOT) 17 5-34 U/L Alanine Aminotransferase (ALT/SGPT) 20 0-55 U/L Alkaline Phosphatase 78 40-136 U/L Total Protein 7.8 6.4-8.2 GM/DL Albumin 4.2 3.2-4.5 GM/DL My Orders Orders - RAJIV TERRY MD Ct Head W Wo (03/12/19 14:09) Ct Chest W (03/12/19 14:09) Ed Iv/Invasive Line Start (03/12/19 14:19) Ns Iv 1000 Ml (Sodium Chloride 0.9%) (03/12/19 14:19) Iohexol Injection (Omnipaque 350 Mg/Ml 1 (03/12/19 14:45) Di Iv Start (Assessment) .IV start (03/12/19 14:35) Received Contrast (Hold Metformin- Contr (03/12/19 14:45) Ns (Ivpb) (Sodium Chloride 0.9% Ivpb Bag (03/12/19 14:45) Lorazepam Injection (Ativan Injection) (03/12/19 15:14) Lorazepam Injection (Ativan Injection) (03/12/19 15:30) Levetiracetam Injection (Keppra Injectio (03/12/19 15:20) Drug Screen Stat (Urine) (03/12/19 15:21) Ua Culture If Indicated (03/12/19 15:21) Medications Given in ED Current Medications Medications Dose Ordered Sig/Laureano Route Start Time Stop Time Status Last Admin Dose Admin Iohexol 75 ml ONCE ONCE IV 03/12/19 14:45 03/12/19 14:46 DC 03/12/19 15:00 75 ML Lorazepam 1 mg ONCE ONCE IVP 03/12/19 15:30 03/12/19 15:31 DC 03/12/19 15:17 1 MG Sodium Chloride 100 ml ONCE ONCE IV 03/12/19 14:45 03/12/19 14:46 DC 03/12/19 15:01 80 ML Sodium Chloride 1,000 ml @ 0 mls/hr Q0M ONCE IV 03/12/19 14:19 03/12/19 14:21 DC 03/12/19 14:30 1,000 MLS/HR Vital Signs/I&O 03/12/19 13:10 Temp 98.8 Pulse 113 Resp 18 B/P (MAP) 112/66 (81) Pulse Ox 100 O2 Delivery Nasal Cannula O2 Flow Rate 2.00 Blood Pressure Mean: 81 Progress Progress Note : Progress Note Seen and evaluated. IV, labs, normal saline 1 L bolus ordered. Anticipate CT of the head with and without contrast and CT of the chest with contrast due to concerns of multiple seizures in the setting of reported history of stage IV lung cancer to rule out metastatic disease.. Monitor patient. 1415: Patient mumbling more now and is conversing with significant other but not answering questions well. Does follow simple commands. Pending CT scans. Monitor patient. 1530: Patient had another episode that appeared to be seizure-like with stiffening of arms and legs. Ativan 1 mg IV given Keppra 500 mg IV given as she has missed her dose today. Monitor patient. 1655: No return of seizures. Seizures likely related to not taking her medicines. She currently does not have any of her medicines. I did discuss the case with Dr. Vera. She will go ahead and send a prescription for Keppra 750 mg by mouth twice a day to the clinic to help offset or seizures. Patient did not take her seizure medicine earlier because she did not have it because it was at the police station or somewhere else. Unfortunately it cannot be found now. That being said, patient needed to have increased dosing per her neurologist per the family and we will go ahead and increase her dosing to 750 mg by mouth twice a day. In further discussion with the family, she is being evaluated for pseudotumor cerebri with neurology in [place] on 04 May or thereabouts. She has previously had back. She did have a shunt placed but that was removed due to shunt infection later. I did discuss with the family that the concerns for lung cancer do not seem to be pounded on the CT scan of the chest as it was negative with no abnormalities. Previous lesions noted in [address] head did not show any acute findings currently. Certainly no masses noted. Discharged home with return precautions. Patient and family verbalize understanding of instructions and agre ement with plan. Diagnostic Imaging Diagonstic Imaging: CT Plain Films/CT/US/NM/MRI: chest Comments [facility], [place] NAME: ALEJANDRA KAUFMAN [facility] REC#: [id number] PT STATUS: REG ER : 1995 PHYSICIAN: RAJIV TERRY MD ADMIT DATE: 03/12/19/ER Draft Date of Exam:03/12/19 CT CHEST W PROCEDURE: CT chest with contrast only. TECHNIQUE: Multiple contiguous axial images were obtained through the chest after administration of intravenous contrast. Auto Exposure Controls were utilized during the CT exam to meet ALARA standards for radiation dose reduction. INDICATION: Lung cancer. COMPARISON: 07/23/2017. FINDINGS: Lungs are clear. No edema or pneumonia. There is trace dependent atelectasis. No pleural effusion. No pneumothorax. Heart size is normal. No pericardial effusion. The aorta is normal in caliber. No axillary, supraclavicular or mediastinal lymphadenopathy. Limited views of the upper abdomen are normal. No suspicious osseous lesions. IMPRESSION: No acute abnormality in the chest. Dictated on workstation # [id number] Dict: 03/12/19 1513 Trans: 03/12/19 1522 [facility] [id number] Interpreted by: EDA JOHNSON MD Electronically signed by: Reviewed: Reviewed by [facility] Diagonstic Imaging: CT Plain Films/CT/US/NM/MRI: head Comments [facility] [place] NAME: ALEJANDRA KAUFMAN [facility] REC#: [id number] PT STATUS: REG ER : 1995 PHYSICIAN: RAJIV TERRY MD ADMIT DATE: 03/12/19/ER Draft Date of Exam:03/12/19 CT HEAD W WO PROCEDURE: CT head with and without contrast. TECHNIQUE: Multiple contiguous axial images were obtained through the brain before and after the administration of intravenous contrast. Auto Exposure Controls were utilized during the CT exam to meet ALARA standards for radiation dose reduction. INDICATION: Seizures. COMPARISON: Correlation is made with head CT from 04/09/2018. FINDINGS: Ventricles and sulci are within normal limits. No sulcal effacement or midline shift is seen. No acute intra-axial or extra-axial hemorrhage is detected. No abnormal enhancement following contrast administration is seen. IMPRESSION: Unremarkable pre- and post-contrast CT of the brain. Dictated on workstation # [id number] Dict: 03/12/19 1510 Trans: 03/12/19 1514 [id number] Interpreted by: DREA WALL MD Electronically signed by: Departure Impression Primary Impression: Seizure disorder Disposition: 01 HOME, SELF-CARE Condition: Stable Departure-Patient Inst. Decision time for Depature: 17:04 Referrals: NO,LOCAL PHYSICIAN (PCP/Family) Primary Care Physician Patient Instructions: Seizures, Adult (DC) Add. Discharge Instructions: All discharge instructions reviewed with patient and/or family. Voiced understanding. Is very important that he take your medications as directed. Follow-up with your neurologist as scheduled. You should call your neurologist and schedule closer follow-up appointment since we are changing her medication dosing. You should go to the [facility] after leaving here and supervisor picking crew your Prescription at the pharmacy. You will be increased to 750 mg twice daily now. Return for worse pain, fever, vomiting, weakness, breathing problems or other concerns as needed. Scripts Levetiracetam (Levetiracetam) 750 Mg Tablet 750 MG PO BID for 30 Days, #60 TAB Prov: RAJIV TERRY MD 03/12/19 Copy Copies To 1: SHONNA SANCHEZ TIMOTHY D MD Mar 12, 2019 14:37
--- NOTE | 2019-03-12 14:38 | NUR ---
PT TALKING IN MUMBLE SENTENCES AT THIS TIME WITH HER BOYFRIEND AT BEDSIDE.
[2019-03-12] MEDS ORDERED: IOHEXOL 350 MG/ML 100 ML (OMNIPAQUE 350) VIAL IV ONE (14:45)
[2019-03-12] MEDS ORDERED: HOLD METFORMIN - RECEIVED CONTRAST 20 ML VIAL IV SCH (14:45)
[2019-03-12] MEDS ORDERED: NS 100 ML (IVPB) BAG IV ONE (14:45)
[2019-03-12] MEDS ORDERED: LORazepam INJ 2 MG/ML (ATIVAN) VIAL ONE (15:14)
--- NOTE | 2019-03-12 15:15 | NUR ---
WHILE IN CHECKING ON PT, PT BEGAN TO TWITCH AND WAS NOT RESPONDING. DR. TERRY INFORMED AND CAME TO RM. 1 MG ATIVAN VERBAL ORDER OBTAINED FROM MARA AT THIS TIME. THIS IS THE FIRST SEIZURE ACTIVITY WITNESSED THIS VISIT. BED RAILS ARE COVERED WITH BEDSHEETS FOR PT SAFETY.
--- NOTE | 2019-03-12 15:15 | Diagnostic Imaging Report ---
PROCEDURE: CT head with and without contrast. TECHNIQUE: Multiple contiguous axial images were obtained through the brain before and after the administration of intravenous contrast. Auto Exposure Controls were utilized during the CT exam to meet ALARA standards for radiation dose reduction. INDICATION: Seizures. COMPARISON: Correlation is made with head CT from 04/09/2018. FINDINGS: Ventricles and sulci are within normal limits. No sulcal effacement or midline shift is seen. No acute intra-axial or extra-axial hemorrhage is detected. No abnormal enhancement following contrast administration is seen. IMPRESSION: Unremarkable pre- and post-contrast CT of the brain. Dictated by: Dictated on workstation # [id number]
[2019-03-12] MEDS ORDERED: LEVETIRACETAM INJECTION 500 MG in NS (IVPB) 100 ML IV STA (15:20)
--- NOTE | 2019-03-12 15:23 | Diagnostic Imaging Report ---
PROCEDURE: CT chest with contrast only. TECHNIQUE: Multiple contiguous axial images were obtained through the chest after administration of intravenous contrast. Auto Exposure Controls were utilized during the CT exam to meet ALARA standards for radiation dose reduction. INDICATION: Lung cancer. COMPARISON: 07/23/2017. FINDINGS: Lungs are clear. No edema or pneumonia. There is trace dependent atelectasis. No pleural effusion. No pneumothorax. Heart size is normal. No pericardial effusion. The aorta is normal in caliber. No axillary, supraclavicular or mediastinal lymphadenopathy. Limited views of the upper abdomen are normal. No suspicious osseous lesions. IMPRESSION: No acute abnormality in the chest. Dictated by: Dictated on workstation # [id number]
[2019-03-12] MEDS ORDERED: LORazepam INJ 2 MG/ML (ATIVAN) VIAL IVP ONE (15:30)
--- NOTE | 2019-03-12 15:42 | NUR ---
PT MORE ALERT AT THIS TIME. TALKING SLOWLY, PT TOLD ME THAT HER DR IN [place] IS GOING TO CALL HERE AND HAVE HER TRANSFERED THERE. I EXPLAINED THAT WE ARE STILL WAITING ON RESULTS FROM THE CT SCAN AND THAT WE WILL NEED A MEDICAL REASON TO TRANSFER HER. WE JUST CAN'T TRANSFER HER BECAUSE SHE WANTS US TO. PT TOLD ME THAT "YOU'RE NOT BEING VERY COURETOUS." I EXPLAINED TO THE PT AND THE GRANDMOTHER THAT THIS IS NOT THE FIRST TIME TODAY THAT THEY HAVE ASKED TO BE TRANSFERED, BETWEEN PT AND GRANDMOTHER, AND WE STILL NEED A MEDICAL REASON TO TRANSFER.
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
--- NOTE | 2019-03-12 17:00 | NUR ---
NO UA OBTAINED FROM PT IN ER THIS VISIT.
[2019-03-12] MEDS ORDERED: LEVE750T5 PO (17:08)
[2019-03-12 17:14] VITALS: BP 112/86
== END 2019-03-12 17:14 | disposition home or self-care (01) ==
LOC: EDUNIT# 13:03 → ER 13:04
DX: G40.909 Epilepsy, unspecified, not intractable, without status epilepticus (principal); F12.10 Cannabis abuse, uncomplicated; F15.10 Other stimulant abuse, uncomplicated; G43.909 Migraine, unspecified, not intractable, without status migrainosus; G93.2 Benign intracranial hypertension; E11.9 Type 2 diabetes mellitus without complications; F41.9 Anxiety disorder, unspecified; Z85.72 Personal history of non-Hodgkin lymphomas; Z90.89 Acquired absence of other organs; Z85.118 Personal history of other malignant neoplasm of bronchus and lung; Z88.1 Allergy status to other antibiotic agents; Z88.0 Allergy status to penicillin; Z88.8 Allergy status to other drugs, medicaments and biological substances
CPT/HCPCS: 36415; 70470; 71260; 80053; 85025; 96361; 96365; 96375

== ENCOUNTER 2019-04-25 14:06 | Emergency (ER) | payer OTHER, BC | END 2019-04-25 20:41 | LOC: ER 14:06 ==

== ENCOUNTER 2019-07-23 01:48 | Emergency (ER) | payer OTHER, BC ==
[~2019-07-23] VITALS: Ht 162 cm; Wt 127.3 kg
[~2019-07-23 01:48] MED LIST changes: +LEVE750T5 PO; +NAPR-1070 PO
[2019-07-23] MEDS ORDERED: AMMONIA INHALATION 0.33 ML AMP ONE (01:51)
[2019-07-23] MEDS ORDERED: LEVETIRACETAM 1,000 MG (KEPPRA) TABLET PO ONE (02:00)
[2019-07-23] MEDS ORDERED: LEVETIRACETAM 500 MG (KEPPRA) TAB PO ONE ×2 (02:00→02:15)
--- NOTE | 2019-07-23 02:03 | ED Neurological Problem ---
General Stated Complaint: SEIZURE Source: patient, police, EMS Exam Limitations: no limitations History of Present Illness Date Seen by Provider: Jul 23, 2019 Time Seen by Provider: 01:53 Initial Comments The patient presents to ER by EMS from [facility] where she was picked up by police and they were attempting to arrest her when she started having seizure-like activity. EMS arrived and she was still having seizure-like activity. When they went to establish an IV however she immediately sat up started cussing and kicking her leg demanding that they do not start an IV in her. She immediately went back to acting postictal after they ceased to their efforts. Patient says she does have a history of seizure activity and is followed by a neurologist in [place]. She is on Keppra 1500 mg twice a day and was recently started to appear in January. She has not been taking any of her medications because she says her grandmother has not called in for her. She says that she has scripts available for her to start at the pharmacy she just has not picked them up. She says she's been off of her medications for about 3 or 4 days now. EMS reports they told her she has been using meth yesterday and marijuana today. Patient says she has some chronic back aches but no significant pain, nausea fevers chills sweats. Last week she had a cold but she is over that now. Allergies and Home Medications Allergies Coded Allergies: amoxicillin (Verified Allergy, Mild, 05/18/13) Penicillins (Verified Allergy, Unknown, 10/04/17) vancomycin (Unverified Allergy, Unknown, 01/24/15) maris syndrome Uncoded Allergies: SURGICAL GLUE (Allergy, Unknown, 03/13/15) Home Medications Levetiracetam 750 Mg Tablet, 750 MG PO BID Prescribed by: RAJIV TERRY on 03/12/19 1708 Naproxen 500 Mg Tablet, 500 MG PO BID Prescribed by: SHAILESH VAZQUEZ on 10/19/18 9218 Naproxen Sodium Unknown Strength Tablet, Unknown Dose PO BID, (Reported) Patient Home Medication List Home Medication List Reviewed: Yes Review of Systems Review of Systems Constitutional: No chills, No fever, No malaise Eyes: Denies Blindness, Denies Drainage Ears, Nose, Mouth, Throat: denies ear pain, denies ear discharge Respiratory: No cough, No short of breath Cardiovascular: No edema, No palpitations Gastrointestinal: No abdominal pain, No constipation, No diarrhea Genitourinary: No discharge, No dysuria All Other Systems Reviewed Negative Unless Noted: Yes Past Vhycyrc-Jvyobh-Rwtxsa Hx Patient Social History Alcohol Use: Denies Use Recreational Drug Use: Yes Drug of Choice: THC, + IV METH USE Smoking Status: Current Everyday Smoker Type Used: Cigarettes (0.5) 2nd Hand Smoke Exposure: No Recent Foreign Travel: No Contact w/Someone Who Travel: No Recent Hopitalizations: No Immunizations Up To Date Tetanus Booster (TDap): Unknown Date of Influenza Vaccine: Jun 03, 2012 Seasonal Allergies Seasonal Allergies: No Past Medical History Surgeries: Yes Abdominal, Adenoidectomy, Bladder Surgery, Ear Surgery, Neurological, Tonsillectomy Respiratory: Yes Cardiac: No Neurological: Yes (PIECER SHUNT for BENIGN INTRACRANIAL HYPERTENSION) Headaches /Migraines, Seizure Disorder Reproductive Disorders: Yes (12 CM CYST OF THE LEFT SALPINX STATUS POST RESECTION) Female Reproductive Disorders: Denies, Menstrual Problems, Ovarian Cyst, Polycystic Ovarian Dis Genitourinary: No Gastrointestinal: Yes (abdominopelvic adhesions) Musculoskeletal: No Endocrine: Yes Diabetes, Non-Insulin dep HEENT: No Cancer: Yes Lymphoma Did You Recieve Any Treatments: No Psychosocial: Yes Pseudo Seizures, Anxiety Integumentary: No Blood Disorders: No Family Medical History No Pertinent Family Hx, Seizures Physical Exam Vital Signs Capillary Refill : Height, Weight, BMI Height: 5'4.00" Weight: 306lbs. 0oz. 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 She is cleared medically for incarceration. Departure Impression Primary Impression: Seizure-like activity Disposition: 01 HOME, SELF-CARE Condition: Stable Departure-Patient Inst. Decision time for Depature: 02:07 Referrals: NO,LOCAL PHYSICIAN (PCP/Family) Primary Care Physician Patient Instructions: Seizures, Adult (DC) Add. Discharge Instructions: Plan to follow up with her primary care doctor as necessary. 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 Cleared for incarceration. JALEEL SNYDER Jul 23, 2019 02:02 POS
[2019-07-23 02:15] VITALS: BP 117/93
== END 2019-07-23 02:18 | disposition home or self-care (01) ==
LOC: EDUNIT# 01:48 → ER 01:51
DX: R25.9 Unspecified abnormal involuntary movements (principal); G40.909 Epilepsy, unspecified, not intractable, without status epilepticus; G43.909 Migraine, unspecified, not intractable, without status migrainosus; E11.9 Type 2 diabetes mellitus without complications; F41.9 Anxiety disorder, unspecified; F17.210 Nicotine dependence, cigarettes, uncomplicated; Z85.72 Personal history of non-Hodgkin lymphomas; Z91.14 Patient's other noncompliance with medication regimen; Z88.1 Allergy status to other antibiotic agents; Z88.0 Allergy status to penicillin; Z90.89 Acquired absence of other organs
CPT/HCPCS: 99283

== ENCOUNTER 2020-03-17 09:28 | Emergency (ER) | payer BC, OTHER ==
[~2020-03-17] VITALS: Ht 162.5 cm; Wt 139.5 kg
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
[2020-03-17 09:50] VITALS: BP 159/97
--- OUTSIDE RECORDS SUMMARY | 2020-03-17 09:58 | XMS REPORT | Clinical Summary ---
Author Author [facility] Address Unknown Phone Unavailable Care Team Providers Care Houseperson Name Role Phone PCP Unavailable Allergies Not on File Medications Not on file Active Problems Not on file Social History Date Tobacco Use Types Packs/Day Years Used Never Assessed Sex Assigned at Date Recorded Not on file Industry Job Start Date Occupation Not on file Not on file Not on file Travel End Travel History Travel Start No recent travel history available. Last Filed Vital Signs Not on file Plan of Treatment Health Maintenance Due Date Last Done Comments Varicella Vaccines (1 of 1997 2 - 2-dose childhood series) HPV Vaccines (1 - 2-dose 01/01/2008 series) Hepatitis C Screening 2014 DTaP,Tdap,and Td Vaccines 01/01/2016 (1 - Tdap) MMR Vaccines-Adult 01/01/2016 Cervical Cancer Screening 2017 Influenza Vaccine (#1) 2020 MenB Vaccine (Bexsero) Aged Out No longer eligi ble based on patient's age to complete this topic Pneumo-Vaccine: Peds (0-5 Aged Out No longer el igible based on patient's age to Yrs) & At-Risk Patients complete this topic (6-64 Yrs) Results Not on filefrom Last 3 Months
--- OUTSIDE RECORDS SUMMARY | 2020-03-17 09:58 | XMS REPORT ---
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 08-1 9-2 Interpreta mg/dL l 019 tion Code Distric 11:29-0 [address] [place] [address] ([id number]) Glucose Test strip Negative Invalid Negative [facility] 08-1 9-2 (U) [Mass/Vol] Interpreta l 019 tion Code Distric 11:29-0 [address] [place] [address] ([id number]) HCO3 (P) [Moles/Vol] 23 Invalid 22-33 [facility] 2 Interpreta mEq/L l 019 tion Code Distric 11:29-0 [address] [place] [address] ([id number]) Hemoglobin Ql (U) Negative Invalid Negative [facility]osp[facility] 04-21 Interpreta l 019 tion Code Distric 11:29-0 [address] [place] [address] ([id number]) Ketones (U) Trace Abnormal Negative [facility] [Mass/Vol] l 019 Distric 11:29-0 [address] [place] [address] ([id number]) Leukocyte esterase Negative Invalid Negative [facility]osp[facility] - 9-2 Test strip Ql (U) Interpreta l 019 tion Code Distric 11:29-0 [address] [place] [address] ([id number]) Methylenedioxymetham Negative Invalid NEGATIVE [facility]ospita phetamine Screen Ql Interpreta l 019 (U) tion Code Distric 11:29-0 [address] [place] [address] ([id number]) Nitrite Ql (U) Negative Invalid Negative [facility]ospita Interpreta l 019 tion Code Distric 11:29-0 [address] [place] [address] ([id number]) Opiates Screen Ql Negative Invalid NEGATIVE [facility] 04-21 (U) Interpreta l 019 tion Code Distric 11:29-0 [address] [place] [address] ([id number]) Osmolality Calc 290 Invalid 280-295 [facility]ospita [Osmolality] Interpreta l 019 tion Code Distric 11:29-0 [address] [place] [address] ([id number]) oxyCODONE Ql (U) Negative Invalid NEGATIVE [facility]ita Interpreta l 019 tion Code Distric 11:29-0 [address] [place] [address] ([id number]) pH (U) 5.0 [pH] Invalid 5-8.5 Hospita Interpreta l 019 tion Code Distric 11:29-0 [address] [place] [address] ([id number]) Phencyclidine Ql (U) Negative Invalid NEGATIVE [facility]ospita Interpreta l 019 tion Code Distric 11:29-0 [address] [place] [address] () Potassium 4.1 mmol/L Invalid 3.5-5.3 [facility]ospita [Moles/Vol] Interpreta mmol/L l 019 tion Code Distric 11:29-0 [address] [place] [address] () Propoxyphene Ql (U) Negative Invalid NEGATIVE [facility] tion Code Distric 11:29- [address] [place] [address] () Protein (U) Negative Invalid Negative [facility] [Mass/Vol] Interpreta l 019 tion Code Distric 11:29-0 [address] [place] [address] () Protein [Mass/Vol] 7.4 g/dL Invalid 6.0-8.3 [facility]ospita 04-03 9-2 Interpreta g/dL l 019 tion Code Distric 11:- [address] [place] [address] () Sodium [Moles/Vol] 140 mmol/L Invalid 134-148 [facility] Inter[facility] mmol/L l 019 tion Code Distric 11:-0 [address] [place] [address] () Specific gravity (U) 1.025 Invalid 1.000-1.03 Hospita 0 [Rel density] Interpreta 0 l 019 tion Code Distric 11:29-0 [address] [place] [address] () Tricyclic Negative Invalid NEGATIVE [facility] antidepressants Ql Interpreta l 019 (U) tion Code Distric 11:-0 [address] [place] [address] ([id number]) Urea nitrogen 16 mg/dL Invalid 5-25 mg/dL [facility] [Mass/Vol] Interpreta l 019 tion Code Distric 11:29-0 [address] [place] [address] ([id number]) Urobilinogen Qn (U) [id number] {[place]'U}/dL Abnormal 0.2-1.0 Hospita l 019 Distric 11:29-0 [address] [place] [address] ([id number]) WBC LM.HPF (Urine Rare/HPF Abnormal Hospita sed) [#/Area] l 019 Distric 11:29-0 [address] [place] [address] ([id number]) laboratory on 2019-01-20 Albumin BCG dye 3.3 Low 3.6-5.1 [facility]ospita 20-2 [Mass/Vol] g/dL l 019 Distric 06:50-0 [address] [place] [address] ([id number]) ALP [Catalytic 66 U/L Invalid 35-130 U/L [facility]osp[facility] 01-20- activity/Vol] Interpreta l 019 tion Code Distric 06:50-0 [address] [place] [address] ([id number]) ALT [Catalytic 12 U/L Invalid 6-45 U/L [facility]osp[facility] activity/Vol] Interpreta l 019 tion Code Distric 06:50-0 [address] [place] [address] ([id number]) Anion gap 12 mmol/L Invalid 6-14 [facility]ospita 01-20-2 [Moles/Vol] Interpreta l 019 tion Code Distric 06:50-0 [address] [place] [address] ([id number]) AST [Catalytic 13 U/L Invalid 2-40 U/L Hospita activity/Vol] Interpreta l 019 tion Code Distric 06:50-0 [address] [place] [address] ([id number]) Basophils (Bld) 0.0 10*3/uL Invalid 0.0-0.2 [facility]ospita 01-20 -2 [#/Vol] Interpreta K/uL l 019 tion Code Distric 06:50-0 [address] [place] [address] ([id number]) Basophils/100 WBC 0.10 % Invalid 0.00-2.50 [facility]ospita 01-20 -2 (Bld) Interpreta % l 019 tion Code Distric 06:50-0 [address] [place] [address] ([id number]) Bilirubin [Mass/Vol] 0.6 mg/dL Invalid 0.2-1.2 [facility]ospita -2 Interpreta mg/dL l 019 tion Code Distric 06:50-0 [address] [place] [address] ([id number]) Calcium [Mass/Vol] 8.7 mg/dL Invalid 8.3-10.4 [facility]ospita 05-2 0-2 Interpreta mg/dL l 019 tion Code Distric 06:50-0 [address] [place] [address] ([id number]) Chloride [Moles/Vol] 107 mmol/L Invalid 95-114 [facility]ita 0 5-20-2 Interpreta mmol/L l 019 tion Code Distric 06:50-0 [address] [place] [address] ([id number]) Creatinine 0.69 mg/dL Invalid 0.50-1.50 [facility] 05-20-2 [Mass/Vol] Interpreta mg/dL l 019 tion Code Distric 06:50-0 [address] [place] [address] () Eosinophils (Bld) 0.3 10*3/uL Invalid 0.0-0.7 [facility]ospita 05- 20-2 [#/Vol] Interpreta K/uL l 019 tion Code Distric 06:50-0 [address] [place] [address] () Eosinophils/100 WBC 3.2 % Invalid 0.0-7.0 % [facility]ospita 05- 20-2 (Bld) Interpreta l 019 tion Code Distric 06:50-[address] [place] [address] () Erythrocyte 13.5 % Invalid 11.6-14.8 Hospita 05-20-2 distribution width Interpreta % l 019 (RBC) [Ratio] tion Code Distric 06:50-0 [address] [place] [address] ([id number]) GFR/1.73 sq 106 mL/min/{1.73_m2} Invalid >59 Hospita 05-20-2 M.predicted MDRD Interpreta mL/min/1.7 l 019 (S/P/Bld) [Vol tion Code 3m2 Distric 06:50-0 rate/Area] [address] [place] [address] () Globulin (S) 2.7 g/dL Invalid 2.3-3.5 [facility]ospita 05-20-2 [Mass/Vol] Interpreta g/dL l 019 tion Code Distric 06:50-0 [address] [place] [address] () Glucose [Mass/Vol] 81 mg/dL Invalid 70-110 [facility]ospita 05-2 0-2 Interpreta mg/dL l 019 tion Code Distric 06:50-0 [address] [place] [address] () HCO3 (P) [Moles/Vol] 23 Invalid 22-33 [facility]ospita -2 Interpreta mEq/L l 019 tion Code Distric 06:50-[address] [place] [address] ([id number]) Hematocrit (Bld) 41.8 % Invalid 36.0-46.0 [facility] 01-20- 2 [Volume fraction] Interpreta % l 019 tion Code Distric 06:50-0 [address] [place] [address] ([id number]) Hemoglobin (Bld) 13.9 g/dL Invalid 13.0-15.0 [facility]ospita 20- 2 [Mass/Vol] Interpreta g/dL l 019 tion Code Distric 06:50-0 [address] [place] [address] () Lymphocytes (Bld) 2.41 10*3/uL Invalid 0.60-3.40 [facility]ospita -2 [#/Vol] Interpreta K/uL l 019 tion Code Distric 06:50-0 [address] [place] [address] ([id number]) Lymphocytes/100 WBC 27.3 % Invalid 10.0-50.0 [facility] 20-2 (Bld) Interpreta % l 019 tion Code Distric 06:50-0 [address] [place] [address] ([id number]) MCH (RBC) [Entitic 27.3 pg Invalid 27.0-31.0 [facility]ospita 05-2 0-2 mass] Interpreta pg l 019 tion Code Distric 06:50-0 [address] [place] [address] ([id number]) MCHC (RBC) 33.3 g/dL Invalid 32.0-36.0 [facility]ospita 20-2 [Mass/Vol] Interpreta g/dL l 019 tion Code Distric 06:50-0 [address] [place] [address] ([id number]) MCV (RBC) [Entitic 82.1 fL Invalid 80.0-97.0 Hospita 05-2 0-2 vol] Interpreta fL l 019 tion Code Distric 06:50-0 [address] [place] [address] ([id number]) Monocytes (Bld) 0.6 10*3/uL Invalid 0.0-0.9 [facility]ospita 20 -2 [#/Vol] Interpreta K/uL l 019 tion Code Distric 06:50-0 [address] [place] [address] () Monocytes/100 WBC 7.1 % Invalid 0.0-12.0 % [facility]ospita 05-2 0-2 (Bld) Interpreta l 019 tion Code Distric 06:50-[address] [place] [address] () Neutrophils (Bld) 5.51 10*3/uL Invalid 2.00-6.90 [facility]ospita 20-2 [#/Vol] Interpreta K/uL l 019 tion Code Distric 06:50-0 [address] [place] [address] () Neutrophils/100 WBC 62.3 % Invalid 37.0-80.0 [facility]ospita 20-2 (Bld) Interpreta % l 019 tion Code Distric 06:50-0 [address] [place] [address] () Osmolality Calc 282 Invalid 280-295 Hospita [Osmolality] Interpreta l 019 tion Code Distric 06:50-0 [address] [place] [address] () Platelet mean volume 11.2 fL High 7.4-10.0 Hospita -2 (Bld) [Entitic vol] fL l 019 Distric 06:50-0 [address] [place] [address] () Platelets (Bld) 207 10*3/uL Invalid 150-400 Hospita 01-202 [#/Vol] Interpreta K/uL l 019 tion Code Distric 06:50-0 [address] [place] [address] () Potassium 4.2 mmol/L Invalid 3.5-5.3 [facility]ospita 01-20-2 [Moles/Vol] Interpreta mmol/L l 019 tion Code Distric 06:50-0 [address] [place] [address] () Protein [Mass/Vol] 6.0 g/dL Invalid 6.0-8.3 [facility]ospita 05-2 0-2 Interpreta g/dL l 019 tion Code Distric 06:50-0 [address] [place] [address] ([id number]) RBC (Bld) [#/Vol] 5.09 10*6/uL High 3.60-5.00 Hospita 20-2 M/uL l 019 Distric 06:50-0 [address] [place] [address] ([id number]) Sodium [Moles/Vol] 138 mmol/L Invalid 134-148 Hospita 2 Interpreta mmol/L l 019 tion Code Distric 06:50-0 t #1 of [address] [facility] ([id number]) Urea nitrogen 7 mg/dL Invalid 5-25 mg/dL Hospita [Mass/Vol] Interpreta l 019 tion Code Distric 06:50-0 t #1 of [address] [facility] ([id number]) WBC (Bld) [#/Vol] 8.84 10*3/uL Invalid 5.00-10.00 Hospita 0 520-2 Interpreta K/uL l 019 tion Code Distric 06:50-0 t #1 of [address] [facility] ([id number]) not yet categorized on 2019-01-19 Amikacin <=16 Susceptibl Hospita e l Distric t #1 of [facility] ([id number]) Amoxicillin/K <=8/4 Susceptibl Hospita Clavulanate e l Distric t #1 of [facility] (45338) Ampicillin <=8 Susceptibl Hospita e l Distric t #1 of [facility] (34598) Ampicillin/Sulbactam <=8/4 Susceptibl Hospita e l Distric t #1 of [facility] (49378) Aztreonam <=8 Susceptibl Hospita e l Distric t #1 of [facility] (41444) Cefazolin <=8 Susceptibl Hospita e l Distric t #1 of [facility] (35761) Cefepime <=8 Susceptibl Hospita e l Distric t #1 of [facility] (38398) Cefotaxime <=2 Susceptibl Hospita e l Distric t #1 of [facility] (45326) Cefotaxime/K <=0.5 Invalid Hospita Clavulanate Interpreta l tion Code Distric t #1 of [facility] (35354) Cefoxitin <=8 Susceptibl Hospita e l Distric t #1 of [facility] (64300) Ceftazidime <=1 Susceptibl Hospita e l Distric t #1 of [facility] (25021) Ceftazidime/K <=0.25 Invalid Hospita Clavulanate Interpreta l tion Code Distric t #1 of [facility] (60543) Ceftriaxone <=8 Susceptibl Hospita e l Distric t #1 of [facility] (49730) Cefuroxime <=4 Susceptibl Hospita e l Distric t #1 of [facility] (98656) Cephalothin <=8 Susceptibl Hospita e l Distric t #1 of [facility] (30227) Ciprofloxacin <=1 Susceptibl Hospita e l Distric t #1 of [facility] ([id number]) CULTURE SOURCE ABG draw rt brachial Hospita l 019 Distric 09:16-0 [address] [place] [address] ([id number]) CULTURE SOURCE cath specimen Hospita l 019 Distric 13:49-0 [address] [place] [address] ([id number]) Electrocardiograms Complete Invalid Hospita recorded Interpreta l 019 tion Code Distric 09:15-0 t [address] [place] [address] ([id number]) Ertapenem <=1 Susceptibl Hospita e l Distric t #1 of [facility] ([id number]) FINAL CULTURE Negative Invalid Hospita RESULTS Interpreta l 019 tion Code Distric 09:16-0 [address] [place] [address] ([id number]) FINAL CULTURE Escherichia coli (Isolate 1) Invalid Hospita RESULTS Interpreta l 019 tion Code Distric 13:49-0 [address] [place] [address] ([id number]) Gentamicin <=4 Susceptibl Hospita e l Distric t #1 of [facility] ([id number]) Imipenem <=4 Susceptibl Hospita e l Distric t #1 of [facility] (88470) Levofloxacin <=2 Susceptibl Hospita e l Distric t #1 of [facility] (84720) MEDIA PLATED Setup at 08:49 on 01/19/2019, Blood Culture H ospita Media Position B27 l 019 Distric 09:16-0 [address] [place] [address] ([id number]) Nitrofurantoin <=32 Susceptibl Hospita e l Distric t #1 of [facility] (56608) Piperacillin <=16 Susceptibl Hospita e l Distric t #1 of [facility] (77749) PRELIM CULTURE Negative Hospita 05-19-2 RESULTS l 019 Distric 09:16-0 t [address] [place] [address] ([id number]) PRELIM CULTURE >100,000 Gram Negative Lactose Pe Teacher SUE Hospita RESULTS / ID to Follow l 019 Distric 13:49-0 t [address] [place] [address] ([id number]) Tetracycline <=4 Susceptibl Hospita e l Distric t #1 of [facility] ([id number]) Tigecycline <=2 Susceptibl Hospita e l Distric t #1 of [facility] (12810) Tobramycin <=4 Susceptibl Hospita e l Distric t #1 of [facility] ([id number]) Trimethoprim/ <=2/38 Susceptibl Hospita Sulfamethoxazole e l Distric t #1 of [facility] (29361) Urine Volume Urine Volume Sufficient (10mL) Invalid Hospita Interpreta l 019 tion Code Distric 13:49-0 [address] [place] [address] ([id number]) Culture to follow Abnormal Hospita l 019 Distric 13:49-0 t [address] [place] [address] ([id number]) laboratory on 2019-01-19 Acetaminophen ug/mL Low 10-30 Hospita [Mass/Vol] ug/mL l 019 Distric 09:08-0 t [address] [place] [address] ([id number]) Albumin BCG dye 3.7 Invalid 3.6-5.1 [facility] [Mass/Vol] Interpreta g/dL l 019 tion Code Distric 09:08-0 t [address] [place] [address] ([id number]) ALP [Catalytic 65 U/L Invalid 35-130 U/L Hospita activity/Vol] Interpreta l 019 tion Code Distric 09:08-0 [address] [place] [address] ([id number]) ALT [Catalytic 14 U/L Invalid 6-45 U/L Hospita activity/Vol] Interpreta l 019 tion Code Distric 09:08-0 [address] [place] [address] ([id number]) Amphetamines Ql (U) Positive Critically NEGATIVE Hospita abnormal l 019 Distric 09:08-0 [address] [place] [address] ([id number]) Anion gap 12 mmol/L Invalid 6-14 Hospita [Moles/Vol] Interpreta l 019 tion Code Distric 09:08-0 [address] [place] [address] ([id number]) AST [Catalytic 12 U/L Invalid 2-40 U/L [facility] activity/Vol] Interpreta l 019 tion Code Distric 09:08-0 [address] [place] [address] ([id number]) Average glucose 97 mg/dL Invalid 70-110 [facility] Estimated from Interpreta mg/dL l 019 glycated hemoglobin tion Code Distric 09:08-0 (Bld) [Mass/Vol] [address] [place] [address] ([id number]) Bacteria LM Ql 1+ Abnormal [facility] (Urine sed) l 019 Distric 13:49-0 [address] [place] [address] ([id number]) Barbiturates Screen Negative Invalid NEGATIVE [facility] Ql (U) Interpreta l 019 tion Code Distric 09:08-0 t [address] [place] [address] ([id number]) Base excess standard -2.00 Low 1.80-4.20 [facility] Calc (BldA) mmol/L l 019 [Moles/Vol] Distric 09:22-0 [address] [place] [address] ([id number]) Basophils (Bld) 0.0 10*3/uL Invalid 0.0-0.2 [facility] 01-19 [#/Vol] Interpreta K/uL l 019 tion Code Distric 09:08-0 [address] [place] [address] ([id number]) Basophils/100 WBC 0.30 % Invalid 0.00-2.50 [facility] 01-19 (Bld) Interpreta % l 019 tion Code Distric 09:08-0 [address] [place] [address] ([id number]) Benzodiazepine Negative Invalid NEGATIVE [facility] metabolites Screen Interpreta l 019 Ql (U) tion Code Distric 09:08-0 [address] [place] [address] ([id number]) Beta HCG ( Negative Invalid Negative [facility] test) Ql (U) Interpreta l 019 tion Code Distric 09:08-[address] [place] [address] ([id number]) Bilirubin [Mass/Vol] 0.3 mg/dL Invalid 0.2-1.2 Hospita 05 -19-2 Interpreta mg/dL l 019 tion Code Distric 09:08-[address] [place] [address] ([id number]) Bilirubin Confirm Ql N/A Abnormal Negative Hospita -19-2 (U) l 019 Distric 13:49-0 [address] [place] [address] ([id number]) Bilirubin Ql (U) Negative Invalid Negative Hospita -19- 2 Interpreta l 019 tion Code Distric 13:49-0 [address] [place] [address] ([id number]) Calcium [Mass/Vol] 9.6 mg/dL Invalid 8.3-10.4 Hospita 05-1 9-2 Interpreta mg/dL l 019 tion Code Distric 09:08-[address] [place] [address] ([id number]) Carboxy Positive Critically NEGATIVE Hospita 01-19-2 tetrahydrocannabinol abnormal l 019 Ql (U) Distric 09:08-[address] [place] [address] ([id number]) Chloride [Moles/Vol] 108 mmol/L Invalid 95-114 Hospita 0 5-19-2 Interpreta mmol/L l 019 tion Code Distric 09:08-[address] [place] [address] ([id number]) Clarity (U) Clear Invalid Clear Hospita --2 Interpreta l 019 tion Code Distric 13:49-0 [address] [place] [address] ([id number]) CO2 (Bld) [Partial 41 Invalid 35-45 Hospita 05-1 9-2 pressure] Interpreta mm/Hg l 019 tion Code Distric 09:22-0 [address] [place] [address] ([id number]) Cocaine Ql (U) Negative Invalid NEGATIVE Hospita 01-19- Interpreta l 019 tion Code Distric 09:08-0 [address] [place] [address] ([id number]) Color (U) Yellow Invalid Colorless- Hospita --2 Interpreta Lt. Yellow l 019 tion Code Distric 13:49-[address] [place] [address] ([id number]) Creatinine 0.72 mg/dL Invalid 0.50-1.50 Hospita -19-2 [Mass/Vol] Interpreta mg/dL l 019 tion Code Distric 09:08-[address] [place] [address] () Eosinophils (Bld) 0.3 10*3/uL Invalid 0.0-0.7 Hospita -2 [#/Vol] Interpreta K/uL l 019 tion Code Distric 09:08-0 [address] [place] [address] () Eosinophils/100 WBC 2.9 % Invalid 0.0-7.0 % Hospita - (Bld) Interpreta l 019 tion Code Distric 09:08-[address] [place] [address] () Erythrocyte 13.4 % Invalid 11.6-14.8 [facility] distribution width Interpreta % l 019 (RBC) [Ratio] tion Code Distric 09:08-0 [address] [place] [address] () Ethanol Ql (U) <10.00 Low 20.00-80.0 Hospita 01-19-2 0 mg/dL l 019 Distric 09:08-[address] [place] [address] () GFR/1.73 sq 101 mL/min/{1.73_m2} Invalid >59 Hospita 01-19-2 M.predicted MDRD Interpreta mL/min/1.7 l 019 (S/P/Bld) [Vol tion Code 3m2 Distric 09:08-0 rate/Area] [address] [place] [address] () Globulin (S) 3.3 g/dL Invalid 2.3-3.5 [facility] 01-19-2 [Mass/Vol] Interpreta g/dL l 019 tion Code Distric 09:08-0 [address] [place] [address] () Glucose [Mass/Vol] 99 mg/dL Invalid 70-110 Hospita 05-1 9-2 Interpreta mg/dL l 019 tion Code Distric 09:08-0 [address] [place] [address] () Glucose Test strip Negative Invalid Negative [facility] 05-1 9-2 (U) [Mass/Vol] Interpreta l 019 tion Code Distric 13:49-0 [address] [place] [address] () HbA1c (Bld) [Mass 4.90 % Low 5.40-6.60 [facility] 01-19 -2 fraction] % l 019 Distric 09:08-0 [address] [place] [address] ([id number]) HCO3 (BldMV) 24 Invalid 20-31 [facility] 01-19- [Moles/Vol] Interpreta mmol/L l 019 tion Code Distric 09:22-0 [address] [place] [address] ([id number]) HCO3 (P) [Moles/Vol] 21 Low 22-33 [facility]osp[facility] -2 mEq/L l 019 Distric 09:08-0 [address] [place] [address] ([id number]) Hematocrit (Bld) 42.3 % Invalid 36.0-46.0 [facility] [Volume fraction] Interpreta % l 019 tion Code Distric 09:08-0 [address] [place] [address] ([id number]) Hemoglobin (Bld) 14.4 g/dL Invalid 13.0-15.0 [facility] 01-19- [Mass/Vol] Interpreta g/dL l 019 tion Code Distric 09:08-0 [address] [place] [address] ([id number]) Hemoglobin Ql (U) Negative Invalid Negative [facility] 01-19 Interpreta l 019 tion Code Distric 13:49-0 [address] [place] [address] ([id number]) Ketones (U) Negative Invalid Negative [facility] 01-19- [Mass/Vol] Interpreta l 019 tion Code Distric 13:49-0 [address] [place] [address] ([id number]) Leukocyte esterase Negative Invalid Negative [facility] 05-1 9-2 Test strip Ql (U) Interpreta l 019 tion Code Distric 13:49-0 [address] [place] [address] ([id number]) Lymphocytes (Bld) 2.53 10*3/uL Invalid 0.60-3.40 [facility] - [#/Vol] Interpreta K/uL l 019 tion Code Distric 09:08-0 [address] [place] [address] ([id number]) Lymphocytes/100 WBC 21.8 % Invalid 10.0-50.0 [facility] - (Bld) Interpreta % l 019 tion Code Distric 09:08-0 [address] [place] [address] ([id number]) Magnesium [Mass/Vol] 2.1 mg/dL Invalid 1.6-2.6 [facility] 05 -19-2 Interpreta mg/dL l 019 tion Code Distric 09:08-0 [address] [place] [address] ([id number]) [facility] (RBC) [Entitic 27.2 pg Invalid 27.0-31.0 Hospita 01-01 9-2 mass] Interpreta pg l 019 tion Code Distric 09:08-0 [address] [place] [address] ([id number]) MCHC (RBC) 34.0 g/dL Invalid 32.0-36.0 Hospita [Mass/Vol] Interpreta g/dL l 019 tion Code Distric 09:08-0 [address] [place] [address] ([id number]) MCV (RBC) [Entitic 79.8 fL Low 80.0-97.0 Hospita 01-01 9-2 vol] fL l 019 Distric 09:08-0 t [address] [place] [address] () Methylenedioxymetham Positive Critically NEGATIVE [place] [address] phetamine Screen Ql abnormal l 019 (U) Distric 09:08-0 t [address] [place] [address] ([id number]) Monocytes (Bld) 0.9 10*3/uL Invalid 0.0-0.9 [facility] [#/Vol] Interpreta K/uL l 019 tion Code Distric 09:08-0 [address] [place] [address] ([id number]) Monocytes/100 WBC 7.9 % Invalid 0.0-12.0 % [facility] 01-01 (Bld) Interpreta l 019 tion Code Distric 09:08-0 [address] [place] [address] ([id number]) Neutrophils (Bld) 7.78 10*3/uL High 2.00-6.90 Hospita [#/Vol] K/uL l 019 Distric 09:08-0 [address] [place] [address] ([id number]) Neutrophils/100 WBC 67.1 % Invalid 37.0-80.0 Hospita (Bld) Interpreta % l 019 tion Code Distric 09:08-0 [address] [place] [address] ([id number]) Nitrite Ql (U) Negative Invalid Negative [facility] Interpreta l 019 tion Code Distric 13:49-0 t #1 of [address] [facility] ([id number]) Opiates Screen Ql Negative Invalid NEGATIVE Hospita 01-19 (U) Interpreta l 019 tion Code Distric 09:08-0 t #1 of 400 [facility] ([id number]) Osmolality Calc 282 Invalid 280-295 Hospita [Osmolality] Interpreta l 019 tion Code Distric 09:08-0 t #1 of 400 [facility] ([id number]) oxyCODONE Ql (U) Negative Invalid NEGATIVE [facility] Interpreta l 019 tion Code Distric 09:08-0 t #1 of 400 [facility] () Oxygen adjusted to 101 High 80-95 Hospita 05- 9-2 patient's actual mm/Hg l 019 temperature (BldA) Distric 09:22-0 [Partial pressure] t [address] [place] [address] () Oxygen saturation 98 4L Invalid 95-100 % [facility] 01-19 adjusted to 0.5 Interpreta l 019 (BldA) [Partial tion Code Distric 09:22-0 pressure] t #1 of 400 [facility] ([id number]) pH (Bld) 7.37 [pH] Invalid 7.35-7.45 Hospita Interpreta l 019 tion Code Distric 09:22-0 [address] [place] [address] ([id number]) pH (U) 5.5 [pH] Invalid 5-8.5 [facility] Interpreta l 019 tion Code Distric 13:49-0 t #1 of [address] [facility] ([id number]) Phencyclidine Ql (U) Negative Invalid NEGATIVE [facility] Interpreta l 019 tion Code Distric 09:08-0 t #1 of 400 [facility] ([id number]) Platelet mean volume 10.0 fL Invalid 7.4-10.0 [facility] (Bld) [Entitic vol] Interpreta fL l 019 tion Code Distric 09:08-0 [address] [place] [address] ([id number]) Platelets (Bld) 255 10*3/uL Invalid 150-400 [facility] 01-19 [#/Vol] Interpreta K/uL l 019 tion Code Distric 09:08-0 [address] [place] [address] ([id number]) Potassium 4.2 mmol/L Invalid 3.5-5.3 Hospita 01-19- [Moles/Vol] Interpreta mmol/L l 019 tion Code Distric 09:08-0 t [address] [place] [address] ([id number]) Propoxyphene Ql (U) Negative Invalid NEGATIVE [facility] Interpreta l 019 tion Code Distric 09:08-0 [address] [place] [address] ([id number]) Protein (U) Negative Invalid Negative [facility]ospita [Mass/Vol] Interpreta l 019 tion Code Distric 13:49-0 [address] [place] [address] () Protein [Mass/Vol] 7.0 g/dL Invalid 6.0-8.3 Hospita 05- 9-2 Interpreta g/dL l 019 tion Code Distric 09:08-0 [address] [place] [address] () RBC (Bld) [#/Vol] 5.30 10*6/uL High 3.60-5.00 [facility] M/uL l 019 Distric 09:08-0 [address] [place] [address] ([id number]) RBC LM.HPF (Urine 0-2/HPF Abnormal [facility] sed) [#/Area] l 019 Distric 13:49-0 t [address] [place] [address] () Salicylates <50 Invalid 0-300 mg/L [facility] [Mass/Vol] Interpreta l 019 tion Code Distric 09:08-0 [address] [place] [address] ([id number]) Sodium [Moles/Vol] 137 mmol/L Invalid 134-148 [facility] Interpreta mmol/L l 019 tion Code Distric 09:08-0 [address] [place] [address] () Specific gravity (U) >=1.030 Abnormal 1.000-1.03 Hospita 0 01-19- [Rel density] 0 l 019 Distric 13:49-0 [address] [place] [address] () Tricyclic Negative Invalid NEGATIVE [facility] antidepressants Ql Interpreta l 019 (U) tion Code Distric 09:08-0 [address] [place] [address] ([id number]) Urea nitrogen 9 mg/dL Invalid 5-25 mg/dL Hospita [Mass/Vol] Interpreta l 019 tion Code Distric 09:08-0 [address] [place] [address] ([id number]) Urobilinogen Qn (U) [id number] {[place]'U}/dL Abnormal 0.2-1.0 Hospita l 019 Distric 13:49-0 [address] [place] [address] ([id number]) WBC (Bld) [#/Vol] 11.59 10*3/uL High 5.00-10.00 [facility] K/uL l 019 Distric 09:08-0 [address] [place] [address] ([id number]) WBC LM.HPF (Urine 2-5/HPF Abnormal Hospita sed) [#/Area] l 019 Distric 13:49-0 [address] [place] [address] ([id number]) Social History The data below is from unstructured sources History Response Recorde d Date/Time Hx Family Cancer Y PAT GF/LIVER AND COLON, PAT GF THROAT 03/01/11 5:50pm Hx Family Colorectal Cancer Y PAT GF 03/01/11 5:50pm Hx Family Cardiac Disorders N 03/01/11 5:50pm History Response Recorde d Date/Time Alcohol Use Denies Use 0 05/18/13 7:13pm Recreational Drug Use N 05/18/13 7:13pm History Response Recorde d Date/Time Alcohol Use Denies Use 0 05/18/13 7:13pm Recreational Drug Use N 05/18/13 7:13pm Vital Signs Date Time Vital Sign Value Performing Clinician Facil ity 11-06-2018 Body weight 123.[address] [facility] ([id number]) Functional Status The data below is from unstructured sources No known Functional Status No known Cognitive Status Mental Status No Information Summary Purpose eClinicalWorks Submission Instructions Clinical Instructions No known clinical instructions Recommended Patient Decision Aids No known recommended patient decision aids Advance Directives Directive Response Recor ded Date Advance Directives N 7:13pm Health Care Power of Shoe Worker N 05/18/13 7:13pm Organ Donor N 05/18/13 7 :13pm Additional Source Comments This clinical document has been generated using [employer] software that has been certified by the Office of the National Coordinator for Health Information Technology (ONC 15.99.04.3023.Diam.31.00.0.147740) and the National Committee for [employer] (NCQA, as an eMeasure certified technology). FOR RECORDS PERTAINING TO PATIENTS WHO ARE OR HAVE BEEN ENROLLED IN A CHEMICAL D EPENDENCY/SUBSTANCE ABUSE PROGRAM, SOME INFORMATION MAY BE OMITTED. This clinica l summary was aggregated from multiple sources. Caution should be exercised in using it in the provision of clinical care. This summary normalizes information from multiple sources, and as a consequence, information in this document may ma terially change the coding, format and clinical context of patient data. In anson tion, data may be omitted in some cases. CLINICAL DECISIONS SHOULD BE BASED ON T HE PRIMARY CLINICAL RECORDS. [employer] provides no warranty or guara ntee of the accuracy or completeness of information in this document.The followi ng information is based on time limited clinical information
--- OUTSIDE RECORDS SUMMARY | 2020-03-17 09:59 | XMS REPORT | Continuity of Care Document ---
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 rement (mass/volume) - 07/16/17 22:09 Serum or plasma troponin i.cardiac measurement (mass/v olume) < ng/mL <0.30 Serum or plasma lithium measurement (mol es/volume) - 07/16/17 22:09 BNP level < pg/mL <100.0 Lipase - 07/16/17 22:09 Lipase 16 U/L 8-78 Serum or plasma amylase measurement (enz ymatic activity/volume) - 07/16/17 22:09 Serum or plasma amylase measurement (enzymatic activit y/volume) 50 U/L 25-125 Serum or plasma thyrotropin [...] u[iU]/mL 0.35-4.94 Complete urinalysis with reflex to cultu re - 07/16/17 22:35 Urine color determination YELLOW NRG Urine clarity determination CLEAR NR G Urine pH measurement by test strip 6 5-9 Specific gravity of urine by test strip 1.025 1.016-1.022 Urine protein assay by test strip, semi-quantitative NEGATIVE NEGATIVE Urine glucose detection by automated test strip NE GATIVE NEGATIVE Erythrocytes detection in urine sediment by light micr oscopy NEGATIVE NEGATIVE Urine ketones detection by automated test strip NE GATIVE NEGATIVE Urine nitrite detection by test strip NEGATIVE NEGATIVE Urine total bilirubin detection by test strip NEGA TIVE NEGATIVE Urine urobilinogen measurement by automated test strip (mass/volume) NORMAL NORMAL Urine leukocyte esterase detection by dipstick NEG ATIVE NEGATIVE Automated urine sediment erythrocyte cou nt by microscopy (number/high power field) NONE NRG Automated urine sediment leukocyte count by microscopy (number/high power field) NONE NRG Bacteria detection in urine sediment by light microsco py TRACE NRG Squamous epithelial cells detection in u rine sediment by light microscopy - NRG Crystals detection in urine sediment by light microsco py NONE NRG Casts detection in urine sediment by light microscopy NONE NRG Mucus detection in urine sediment by light microscopy NEGATIVE NRG Complete urinalysis with reflex to culture NO NRG Urine drug screening test - 07/16/17 22: 35 Urine phencyclidine detection by screening method NEGATIVE NEGATIVE Urine benzodiazepines detection by screening method NEGATIVE NEGATIVE Urine cocaine detection NEGATIVE NEGATI VE Urine amphetamines detection by screening method N EGATIVE NEGATIVE Urine methamphetamine detection by screening method NEGATIVE NEGATIVE Urine cannabinoids detection by screening method N EGATIVE NEGATIVE Urine opiates detection by screening method NEGATI VE NEGATIVE Urine barbiturates detection NEGATIVE N EGATIVE Screening urine tricyclic antidepressants detection NEGATIVE NEGATIVE Urine methadone detection by screening method NEGA TIVE NEGATIVE Urine oxycodone detection NEGATIVE NEGA TIVE Urine propoxyphene detection NEGATIVE N EGATIVE Blood CBC with ordered manual differenti al panel - 07/24/17 11:05 Blood leukocytes automated count (number/volume) 12.1 10*3/uL 4.3-11.0 Blood erythrocytes automated count (number/volume) 5.41 10*6/uL 4.35-5.85 Venous blood hemoglobin measurement (mass/volume) 14.9 g/dL 11.5-16.0 Blood hematocrit (volume fraction) 44 % 35-52 Automated erythrocyte mean corpuscular volume 81 [ foz_us] 80-99 Automated erythrocyte mean corpuscular h emoglobin (mass per erythrocyte) 28 pg 25-34 Automated erythrocyte mean corpuscular h emoglobin concentration measurement (mass/volume) 34 g/dL 32-36 Automated erythrocyte distribution width ratio 13. 7 % 10.0- 14.5 Automated blood platelet count [...] 10*3 1.0-4.0 Blood monocytes automated count (number/volume) 0. 7 10*3 0.0-1.0 Automated eosinophil count 0.3 10*3/uL 0 .0-0.3 Automated blood basophil count (count/volume) 0.1 10*3/uL 0.0-0.1 Manual blood segmented neutrophils/100 leukocytes 72 % NRG Manual blood lymphocytes/100 leukocytes 11 % NRG Manual eosinophils/100 leukocytes in nose 4 % NRG Blood lymphocytes variant/100 leukocytes 7 % NRG Blood erythrocyte morphology finding identification NORMAL NRG Urine beta human chorionic gonadotropin (hCG) measurement - 07/24/17 11:05 Urine beta human chorionic gonadotropin (hCG) measurem ent NEGATIVE NEGATIVE Comprehensive metabolic panel - 07/24/17 11:05 Serum or plasma sodium measurement (moles/volume) 142 mmol/L 135-145 Serum or plasma potassium measurement (moles/volume) 3.5 mmol/L 3.6-5.0 Serum or plasma chloride measurement (moles/volume) 109 mmol/L 98-107 Carbon dioxide 24 mmol/L 21-32 Serum or plasma anion gap determination (moles/volume) 9 mmol/L 5-14 Serum or plasma urea nitrogen measurement (mass/volume ) 11 mg/dL 7-18 Serum or plasma creatinine measurement (mass/volume) 0.67 mg/dL 0.60-1.30 Serum or plasma urea nitrogen/creatinine mass ratio 16 NRG Serum or plasma creatinine measurement w ith calculation of estimated glomerular filtration rate > NRG Serum or plasma glucose measurement (mass/volume) 107 mg/dL 70-105 Serum or plasma calcium measurement (mass/volume) 9.0 mg/dL 8.5-10.1 Serum or plasma total bilirubin measurement (mass/volu me) 0.5 mg/dL 0.1-1.0 Serum or plasma alkaline phosphatase rohan surement (enzymatic activity/volume) 65 U/L 40-136 Serum or plasma aspartate aminotransfera se measurement (enzymatic activity/volume) 22 U/L 5-34 Serum or plasma alanine aminotransferase measurement (enzymatic activity/volume) 23 U/L 0-55 Serum or plasma protein measurement (mass/volume) 7.2 g/dL 6.4-8.2 Serum or plasma albumin measurement (mass/volume) 3.8 g/dL 3.2-4.5 [id number] - 07/24/17 11:05 [id number] Negative Negative Serum Vicki Andres virus early [...] PATH REPORT NRG Serum angiotensin converting enzyme (PERLA ) measurement - 07/24/17 11:05 Serum angiotensin converting enzyme (PERLA) measurement 56 U/L 9-67 Urine protein electrophoresis panel - 11:40 Urine protein measurement (mass/volume) 8 mg/dL NRG Urine creatinine measurement (mass/volume) 142 mg/ dL NRG 24 hour urine protein measurement (mass/time) 126 mg 10-150 Urine collection time duration 24 h NRG Creatinine ur 24hr 2.2 H 0.8-1.8 Urine volume measurement 1575 NRG Urine protein electrophoresis panel SEE PATH NRG 24 hour urine protein monoclonal measure ment by electrophoresis (mass/time) NOT PRESENT NRG Complete blood count (CBC) with automate d white blood cell (WBC) differential - 09/10/17 20:50 Blood leukocytes automated count (number/volume) 8.2 10*3/uL 4.3-11.0 Blood erythrocytes automated count (number/volume) 5.08 10*6/uL 4.35-5.85 Venous blood hemoglobin measurement (mass/volume) 14.4 g/dL 11.5-16.0 Blood hematocrit (volume fraction) 41 % 35-52 Automated erythrocyte mean corpuscular volume 80 [ foz_us] 80-99 Automated erythrocyte mean corpuscular h emoglobin (mass per erythrocyte) 28 pg 25-34 Automated erythrocyte mean corpuscular h emoglobin concentration measurement (mass/volume) 36 g/dL 32-36 Automated erythrocyte distribution width ratio 13. 8 % 10.0- 14.5 Automated blood platelet count (count/volume) 93 1 0*3/uL 130-400 Automated blood platelet mean volume measurement [...] 10*3 1.0-4.0 Blood monocytes automated count (number/volume) 0. 6 10*3 0.0-1.0 Automated eosinophil count 0.2 10*3/uL 0 .0-0.3 Automated blood basophil count (count/volume) 0.1 10*3/uL 0.0-0.1 Comprehensive metabolic panel - 09/10/17 21:17 Serum or plasma sodium measurement (moles/volume) 139 mmol/L 135-145 Serum or plasma potassium measurement (moles/volume) 3.3 mmol/L 3.6-5.0 Serum or plasma chloride measurement (moles/volume) 107 mmol/L 98-107 Carbon dioxide 18 mmol/L 21-32 Serum or plasma anion gap determination (moles/volume) 14 mmol/L 5-14 Serum or plasma urea nitrogen measurement (mass/volume ) 18 mg/dL 7-18 Serum or plasma creatinine measurement (mass/volume) 0.78 mg/dL 0.60-1.30 Serum or plasma urea nitrogen/creatinine mass ratio 23 NRG Serum or plasma creatinine measurement w ith calculation of estimated glomerular filtration rate > NRG Serum or plasma glucose measurement (mass/volume) 85 mg/dL 70-105 Serum or plasma calcium measurement (mass/volume) 9.5 mg/dL 8.5-10.1 Serum or plasma total bilirubin measurement (mass/volu me) 1.0 mg/dL 0.1-1.0 Serum or plasma alkaline phosphatase rohan surement (enzymatic activity/volume) 64 U/L 40-136 Serum or plasma aspartate aminotransfera se measurement (enzymatic activity/volume) 30 U/L 5-34 Serum or plasma alanine aminotransferase measurement (enzymatic activity/volume) 27 U/L 0-55 Serum or plasma protein measurement (mass/volume) 8.0 g/dL 6.4-8.2 Serum or plasma albumin measurement (mass/volume) 4.2 g/dL 3.2-4.5 Complete urinalysis with reflex to cultu re - 09/10/17 21:45 Urine color determination YELLOW NRG Urine clarity determination CLEAR NR G Urine pH measurement by test strip 5 5-9 Specific gravity of urine by test strip 1.030 1.016-1.022 Urine protein assay by test strip, semi-quantitative 2+ NEGATIVE Urine glucose detection by automated test strip NE GATIVE NEGATIVE Erythrocytes detection in urine sediment by light micr oscopy 3+ NEGATIVE Urine ketones detection by automated test strip 4+ NEGATIVE Urine nitrite detection by test strip NEGATIVE NEGATIVE Urine total bilirubin detection by test strip NEGA TIVE NEGATIVE Urine urobilinogen measurement by automated test strip (mass/volume) 1 mg/dL NORMAL Urine leukocyte esterase detection by dipstick 1+ NEGATIVE Automated urine sediment erythrocyte cou nt by microscopy (number/high power field) [HPF] NRG Automated urine sediment leukocyte count by microscopy (number/high power field) [HPF] NRG Bacteria detection in urine sediment by light microsco py FEW NRG Squamous epithelial cells detection in u rine sediment by light microscopy 25-50 NRG Crystals detection in urine sediment by light microsco py NONE NRG Casts detection in urine sediment by light microscopy PRESENT NRG Mucus detection in urine sediment by light microscopy SMALL NRG Complete urinalysis with reflex to culture NO NRG Hyaline casts detection in urine sediment by light sue roscopy 2-5 NRG Urine drug screening test - 09/10/17 21: 45 Urine phencyclidine detection by screening method NEGATIVE NEGATIVE Urine benzodiazepines detection by screening method NEGATIVE NEGATIVE Urine cocaine detection NEGATIVE NEGATI VE Urine amphetamines detection by screening method P OSITIVE NEGATIVE Urine methamphetamine detection by screening method POSITIVE NEGATIVE Urine cannabinoids detection by screening method P OSITIVE NEGATIVE Urine opiates detection by screening method NEGATI VE NEGATIVE Urine barbiturates detection NEGATIVE N EGATIVE Screening urine tricyclic antidepressants detection NEGATIVE NEGATIVE Urine methadone detection by screening method NEGA TIVE NEGATIVE Urine oxycodone detection NEGATIVE NEGA TIVE Urine propoxyphene detection NEGATIVE N EGATIVE Complete blood count (CBC) with automate d white blood cell (WBC) differential - 10/04/17 00:50 Blood leukocytes automated count (number/volume) 17.3 10*3/uL 4.3-11.0 Blood erythrocytes automated count (number/volume) 5.32 10*6/uL 4.35-5.85 Venous blood hemoglobin measurement (mass/volume) 14.9 g/dL 11.5-16.0 Blood hematocrit (volume fraction) 43 % 35-52 Automated erythrocyte mean corpuscular volume 81 [ foz_us] 80-99 Automated erythrocyte mean corpuscular h emoglobin (mass per erythrocyte) 28 pg 25-34 Automated erythrocyte mean corpuscular h emoglobin concentration measurement (mass/volume) 35 g/dL 32-36 Automated erythrocyte distribution width ratio 14. 0 % 10.0- 14.5 Automated blood platelet count [...] 10*3 1.0-4.0 Blood monocytes automated count (number/volume) 1. 0 10*3 0.0-1.0 Automated eosinophil count 0.2 10*3/uL 0 .0-0.3 Automated blood basophil count (count/volume) 0.0 10*3/uL 0.0-0.1 Serum or plasma choriogonadotropin (preg lelo test) detection - 10/04/17 00:50 Serum or plasma choriogonadotropin ( test) de tection NEGATIVE NEGATIVE Whole blood basic metabolic panel - 09/20 00:50 Serum or plasma sodium measurement (moles/volume) 141 mmol/L 135-145 Serum or plasma potassium measurement (moles/volume) 2.8 mmol/L 3.6-5.0 Serum or plasma chloride measurement (moles/volume) 105 mmol/L 98-107 Carbon dioxide 22 mmol/L 21-32 Serum or plasma anion gap determination (moles/volume) 14 mmol/L 5-14 Serum or plasma urea nitrogen measurement (mass/volume ) 9 mg/dL 7-18 Serum or plasma creatinine measurement (mass/volume) 0.82 mg/dL 0.60-1.30 Serum or plasma urea nitrogen/creatinine mass ratio 11 NRG Serum or plasma creatinine measurement w ith calculation of estimated glomerular filtration rate > NRG Serum or plasma glucose measurement (mass/volume) 107 mg/dL 70-105 Serum or plasma calcium measurement (mass/volume) 9.5 mg/dL 8.5-10.1 Blood manual differential performed dete ction - 10/04/17 00:50 Blood monocytes/100 leukocytes 8 % NRG Manual blood segmented neutrophils/100 leukocytes 80 % NRG Blood band neutrophils/100 leukocytes 2 % NRG Manual blood lymphocytes/100 leukocytes 10 % NRG Manual eosinophils/100 leukocytes in nose 0 % NRG Manual blood basophils/100 leukocytes 0 % NRG Blood erythrocyte morphology finding identification NORMAL NRG Serum or plasma ethanol measurement (mas s/volume) - 10/04/17 00:50 Serum or plasma ethanol measurement (mass/volume) < mg/dL <10 Bacterial blood culture - 10/04/17 01:05 Bacterial blood culture NG NRG Bacterial blood culture - 10/04/17 01:25 Bacterial blood culture NG NRG Complete blood count (CBC) with automate d white blood cell (WBC) differential - 04/09/18 20:01 Blood leukocytes automated count (number/volume) 10.9 10*3/uL 4.3-11.0 Blood erythrocytes automated count (number/volume) 5.13 10*6/uL 4.35-5.85 Venous blood hemoglobin measurement (mass/volume) 14.1 g/dL 11.5-16.0 Blood hematocrit (volume fraction) 41 % 35-52 Automated erythrocyte mean corpuscular volume 81 [ foz_us] 80-99 Automated erythrocyte mean corpuscular h emoglobin (mass per erythrocyte) 28 pg 25-34 Automated erythrocyte mean corpuscular h emoglobin concentration measurement (mass/volume) 34 g/dL 32-36 Automated erythrocyte distribution width ratio 14. 0 % 10.0- 14.5 Automated blood platelet count [...] 10*3 1.0-4.0 Blood monocytes automated count (number/volume) 0. 8 10*3 0.0-1.0 Automated eosinophil count 0.2 10*3/uL 0 .0-0.3 Automated blood basophil count (count/volume) 0.0 10*3/uL 0.0-0.1 Serum or plasma choriogonadotropin (preg lelo test) detection - 04/09/18 20:01 Serum or plasma choriogonadotropin ( test) de tection NEGATIVE NEGATIVE Comprehensive metabolic panel - 04/09/18 20:01 Serum or plasma sodium measurement (moles/volume) 141 mmol/L 135-145 Serum or plasma potassium measurement (moles/volume) 3.6 mmol/L 3.6-5.0 Serum or plasma chloride measurement (moles/volume) 109 mmol/L 98-107 Carbon dioxide 20 mmol/L 21-32 Serum or plasma anion gap determination (moles/volume) 12 mmol/L 5-14 Serum or plasma urea nitrogen measurement (mass/volume ) 11 mg/dL 7-18 Serum or plasma creatinine measurement (mass/volume) 0.80 mg/dL 0.60-1.30 Serum or plasma urea nitrogen/creatinine mass ratio 14 NRG Serum or plasma creatinine measurement w ith calculation of estimated glomerular filtration rate > NRG Serum or plasma glucose measurement (mass/volume) 96 mg/dL 70-105 Serum or plasma calcium measurement (mass/volume) 9.6 mg/dL 8.5-10.1 Serum or plasma total bilirubin measurement (mass/volu me) 0.5 mg/dL 0.1-1.0 Serum or plasma alkaline phosphatase rohan surement (enzymatic activity/volume) 60 U/L 40-136 Serum or plasma aspartate aminotransfera se measurement (enzymatic activity/volume) 16 U/L 5-34 Serum or plasma alanine aminotransferase measurement (enzymatic activity/volume) 19 U/L 0-55 Serum or plasma protein measurement (mass/volume) 7.2 g/dL 6.4-8.2 Serum or plasma albumin measurement (mass/volume) 4.0 g/dL 3.2-4.5 CALCIUM CORRECTED 9.6 mg/dL 8.5-10.1 Complete urinalysis with reflex to cultu re - 04/09/18 20:36 Urine color determination YELLOW NRG Urine clarity determination CLEAR NR G Urine pH measurement by test strip 5 5-9 Specific gravity of urine by test strip 1.030 1.016-1.022 Urine protein assay by test strip, semi-quantitative 2+ NEGATIVE Urine glucose detection by automated test strip NE GATIVE NEGATIVE Erythrocytes detection in urine sediment by light micr oscopy NEGATIVE NEGATIVE Urine ketones detection by automated test strip 1+ NEGATIVE Urine nitrite detection by test strip NEGATIVE NEGATIVE Urine total bilirubin detection by test strip 1+ NEGATIVE Urine urobilinogen measurement by automated test strip (mass/volume) 4 mg/dL NORMAL Urine leukocyte esterase detection by dipstick 1+ NEGATIVE Automated urine sediment erythrocyte cou nt by microscopy (number/high power field) [HPF] NRG Automated urine sediment leukocyte count by microscopy (number/high power field) [HPF] NRG Bacteria detection in urine sediment by light microsco py MODERATE NRG Squamous epithelial cells detection in u rine sediment by light microscopy 10-25 NRG Crystals detection in urine sediment by light microsco py NONE NRG Casts detection in urine sediment by light microscopy NONE NRG Mucus detection in urine sediment by light microscopy NEGATIVE NRG Complete urinalysis with reflex to culture NO NRG Urine drug screening test - 04/09/18 20: 36 Urine phencyclidine detection by screening method NEGATIVE NEGATIVE Urine benzodiazepines detection by screening method NEGATIVE NEGATIVE Urine cocaine detection NEGATIVE NEGATI VE Urine amphetamines detection by screening method P OSITIVE NEGATIVE Urine methamphetamine detection by screening method POSITIVE NEGATIVE Urine cannabinoids detection by screening method P OSITIVE NEGATIVE Urine opiates detection by screening method NEGATI VE NEGATIVE Urine barbiturates detection NEGATIVE N EGATIVE Screening urine tricyclic antidepressants detection NEGATIVE NEGATIVE Urine methadone detection by screening method NEGA TIVE NEGATIVE Urine oxycodone detection NEGATIVE NEGA TIVE Urine propoxyphene detection NEGATIVE N EGATIVE Bacterial urine culture - 05/01/18 21:00 Bacterial urine culture NG NRG Complete blood count (CBC) with automate d white blood cell (WBC) differential - 10/19/18 20:25 Blood leukocytes automated count (number/volume) 13.6 10*3/uL 4.3-11.0 Blood erythrocytes automated count (number/volume) 5.25 10*6/uL 4.35-5.85 Venous blood hemoglobin measurement (mass/volume) 14.5 g/dL 11.5-16.0 Blood hematocrit (volume fraction) 43 % 35-52 Automated erythrocyte mean corpuscular volume 81 [ foz_us] 80-99 Automated erythrocyte mean corpuscular h emoglobin (mass per erythrocyte) 28 pg 25-34 Automated erythrocyte mean corpuscular h emoglobin concentration measurement (mass/volume) 34 g/dL 32-36 Automated erythrocyte distribution width ratio 14. 1 % 10.0- 14.5 Automated blood platelet count [...] 10*3 1.0-4.0 Blood monocytes automated count (number/volume) 0. 9 10*3 0.0-1.0 Automated eosinophil count 0.5 10*3/uL 0 .0-0.3 Automated blood basophil count (count/volume) 0.0 10*3/uL 0.0-0.1 PT panel in platelet poor plasma by coag ulation assay - 10/19/18 20:25 Prothrombin time (PT) in platelet poor plasma by coagu lation assay 13.2 s 12.2-14.7 INR in platelet poor plasma or blood by coagulation as say 1.0 0.8-1.4 Activated partial thromboplastin time (a PTT) in platelet poor plasma bycoagulation assay - 10/19/18 20:25 Activated partial thromboplastin time (a PTT) in platelet poor plasma bycoagulation assay 32 s 24-35 Serum or plasma choriogonadotropin (preg lelo test) detection - 10/19/18 20:25 Serum or plasma choriogonadotropin ( test) de tection NEGATIVE NEGATIVE Comprehensive metabolic panel - 10/19/18 20:25 Serum or plasma sodium measurement (moles/volume) 140 mmol/L 135-145 Serum or plasma potassium measurement (moles/volume) 3.6 mmol/L 3.6-5.0 Serum or plasma chloride measurement (moles/volume) 104 mmol/L 98-107 Carbon dioxide 24 mmol/L 21-32 Serum or plasma anion gap determination (moles/volume) 12 mmol/L 5-14 Serum or plasma urea nitrogen measurement (mass/volume ) 10 mg/dL 7-18 Serum or plasma creatinine measurement (mass/volume) 0.79 mg/dL 0.60-1.30 Serum or plasma urea nitrogen/creatinine mass ratio 13 NRG Serum or plasma creatinine measurement w ith calculation of estimated glomerular filtration rate > NRG Serum or plasma glucose measurement (mass/volume) 98 mg/dL 70-105 Serum or plasma calcium measurement (mass/volume) 9.3 mg/dL 8.5-10.1 Serum or plasma total bilirubin measurement (mass/volu me) 0.2 mg/dL 0.1-1.0 Serum or plasma alkaline phosphatase rohan surement (enzymatic activity/volume) 72 U/L 40-136 Serum or plasma aspartate aminotransfera se measurement (enzymatic activity/volume) 19 U/L 5-34 Serum or plasma alanine aminotransferase measurement (enzymatic activity/volume) 21 U/L 0-55 Serum or plasma protein measurement (mass/volume) 7.4 g/dL 6.4-8.2 Serum or plasma albumin measurement (mass/volume) 3.8 g/dL 3.2-4.5 CALCIUM CORRECTED 9.5 mg/dL 8.5-10.1 Magnesium - 10/19/18 20:25 Magnesium 2.1 mg/dL 1.8-2.4 Serum or plasma creatine kinase measurem ent (enzymatic activity/volume) - 10/19/18 20:25 Serum or plasma creatine kinase measurem ent (enzymatic activity/volume) 41 U/L 29-168 Serum or plasma creatine kinase MB measu rement (enzymatic activity/volume) - 10/19/18 20:25 Serum or plasma creatine kinase MB measu rement (enzymatic activity/volume) 0.7 ng/mL <6.6 Serum or plasma amylase measurement (enz ymatic activity/volume) - 10/19/18 20:25 Serum or plasma amylase measurement (enzymatic activit y/volume) 51 U/L 25-125 Lipase - 10/19/18 20:25 Lipase 15 U/L 8-78 Serum or plasma ethanol measurement (mas s/volume) - 10/19/18 20:25 Serum or plasma ethanol measurement (mass/volume) < mg/dL <10 Complete urinalysis with reflex to cultu re - 10/19/18 22:12 Urine color determination YELLOW NRG Urine clarity determination CLEAR NR G Urine pH measurement by test strip 6 5-9 Specific gravity of urine by test strip 1.015 1.016-1.022 Urine protein assay by test strip, semi-quantitative 1+ NEGATIVE Urine glucose detection by automated test strip NE GATIVE NEGATIVE Erythrocytes detection in urine sediment by light micr oscopy NEGATIVE NEGATIVE Urine ketones detection by automated test strip NE GATIVE NEGATIVE Urine nitrite detection by test strip NEGATIVE NEGATIVE Urine total bilirubin detection by test strip NEGA TIVE NEGATIVE Urine urobilinogen measurement by automated test strip (mass/volume) NORMAL NORMAL Urine leukocyte esterase detection by dipstick 2+ NEGATIVE Automated urine sediment erythrocyte cou nt by microscopy (number/high power field) RARE NRG Automated urine sediment leukocyte count by microscopy (number/high power field) [HPF] NRG Bacteria detection in urine sediment by light microsco py TRACE NRG Squamous epithelial cells detection in u rine sediment by light microscopy 2-5 NRG Crystals detection in urine sediment by light microsco py NONE NRG Casts detection in urine sediment by light microscopy NONE NRG Mucus detection in urine sediment by light microscopy SMALL NRG Complete urinalysis with reflex to culture NO NRG Urine drug screening test - 10/19/18 22: 12 Urine phencyclidine detection by screening method NEGATIVE NEGATIVE Urine benzodiazepines detection by screening method NEGATIVE NEGATIVE Urine cocaine detection NEGATIVE NEGATI VE Urine amphetamines detection by screening method P OSITIVE NEGATIVE Urine methamphetamine detection by screening method POSITIVE NEGATIVE Urine cannabinoids detection by screening method P OSITIVE NEGATIVE Urine opiates detection by screening method NEGATI VE NEGATIVE Urine barbiturates detection NEGATIVE N EGATIVE Screening urine tricyclic antidepressants detection NEGATIVE NEGATIVE Urine methadone detection by screening method NEGA TIVE NEGATIVE Urine oxycodone detection NEGATIVE NEGA TIVE Urine propoxyphene detection NEGATIVE N EGATIVE Capillary blood glucose measurement by g lucometer (mass/volume) - 10/19/18 22:20 Capillary blood glucose measurement by glucometer (mas s/volume) 124 mg/dL 70-110 Acetaminophen - 01/19/19 08:08 Acetamin <0 ug/mL 10-30 Hemoglobin A1C - 01/19/19 08:08 % A1C 4.90 % 5.40-6.60 AvGlu 97 mg/dL 70-110 EKG - 01/19/19 08:15 EKG Complete Blood Culture - 01/19/19 08:16 PRELIM CULTURE RESULTS Blood Culture Negativ e, No Growth Day 1 FINAL CULTURE RESULTS Blood Culture Negative , No Growth Day 5 MEDIA PLATED Setup at 08:49 on 01/19/2019, Blood Culture Media Position B27 CULTURE SOURCE ABG draw rt brachial Blood Culture - 01/19/19 08:16 PRELIM CULTURE RESULTS Blood Culture Negativ e, No Growth Day 1 MEDIA PLATED Setup [...] Negative Urine-Blood Negative Negative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
== END 2020-03-17 09:50 | disposition home or self-care (01) ==
LOC: EDUNIT# 09:28 → ER 09:29
DX: S09.90XA Unspecified injury of head, initial encounter (principal); G40.909 Epilepsy, unspecified, not intractable, without status epilepticus; G43.909 Migraine, unspecified, not intractable, without status migrainosus; R40.2142 Coma scale, eyes open, spontaneous, at arrival to emergency department; R40.2252 Coma scale, best verbal response, oriented, at arrival to emergency department; R40.2362 Coma scale, best motor response, obeys commands, at arrival to emergency department; Z88.0 Allergy status to penicillin; Z88.1 Allergy status to other antibiotic agents; Z79.1 Long term (current) use of non-steroidal anti-inflammatories (NSAID); Z85.72 Personal history of non-Hodgkin lymphomas; Y00.XXXA Assault by blunt object, initial encounter
CPT/HCPCS: 99283

== ENCOUNTER 2021-03-08 19:58 | Emergency (ER) | payer BC, OTHER ==
[~2021-03-08] VITALS: Ht 162.6 cm; Wt 140.9 kg
[2021-03-08] MEDS ORDERED: KETOROLAC 30 MG/ML VIAL IVP STA (20:17)
[2021-03-08] MEDS ORDERED: ASPIRIN 81 MG CHEW (CHILDREN'S ASA) PO ONE (20:30)
[2021-03-08] MEDS ORDERED: NS IV 1000 ML 1,000 ML IV ONE (20:30)
--- NOTE | 2021-03-08 21:05 | Diagnostic Imaging Report ---
EXAMINATION: Chest 1 view HISTORY: Chest pain. COMPARISON: 03/12/2019. FINDINGS: The lung volumes are low. No focal consolidation is seen. No large pleural effusion or pneumothorax is seen. The cardiomediastinal silhouette is prominent. No acute osseous abnormality is seen. IMPRESSION: 1. Low lung volumes, likely due to poor inspiratory effort. 2. Prominent cardiac silhouette, likely due to the low lung volumes. No evidence of pulmonary edema. Dictated by: Dictated on workstation # [id number]
--- NOTE | 2021-03-08 21:11 | ED General ---
General Chief Complaint: Chest Pain Stated Complaint: SEIZURE Nursing Triage Note: PRESENTS VIA [facility] FROM [facility] W/CO SEIZURE LIKE ACTIVITY AND CHEST DISCOMFORT. EMS [facility] STAFF WITNESSED PT EXPEREINCE APPROX X2 MINUTES OF SEIZURE LIKE ACTIVITY FOLLOWED BY POSTICAL STATE. UPON ARRIVAL PT REPORTS PRIOR TO EXPERIENCING +LOC WITH SEIZURE LIKE ACTIVITY SHE REMEMBERS HITTING HER HEAD ON A TOP BUNK AND FALLING ASLEEP. PT REPORTS AFTER SHE EXPERIENCED SEIZURE LIKE ACTIVITY SHE BEGAN TO EXPERIENCE L SIDED CHEST DISCOMFORT RADIATING TO L AXILLA RATED 6/10. PT REPORTS SHE HAS BEEN IN CUSTODY OF [facility] DEPT FOR 8 DAYS AND HAS NOT HAD ANY PRESCRIBED MEDICATIONS WHILE IN CUSTODY. PT A&OX4 WITH NO POSTICTAL STATE NOTED DURING TRIAGE. PT ACCOMPANIED BY [facility] DEPUTIliana MAYA. Source of Information: Patient, EMS, Police Exam Limitations: No Limitations History of Present Illness Date Seen by Provider: Mar 08, 2021 Time Seen by Provider: 19:57 Initial Comments Here with report of 2 seizures at senior care this evening. She apparently hit her head accidentally on the top bunk but it was a mild hit and did not knock her out. She laid down. She noticed that she had some chest pain after dinner sometime around 5-5 30. That was left-sided and achy. This did involve her arm. Apparently this happens sometimes. She has not taken any of her medicine since being in senior care for the last 8 days and that includes her seizure medicines. She is normally on Keppra 750 mg p.o. twice daily as well as 1500 mg of metformin twice daily. She also takes Topamax. She is incarcerated in [facility] currently and is apparently going to go to senior care in [facility] and they may be coming to pick her up. Denies any current problems except for achiness after the seizures. Alert and oriented and answer all questions appropriately. Timing/Duration: 1-3 Hours Associated Systoms: Chest Pain; No Fever/Chills, No Nausea/Vomiting; Seizure; No Weakness Allergies and Home Medications Allergies Coded Allergies: amoxicillin (Verified Allergy, Mild, 05/18/13) Penicillins (Verified Allergy, Unknown, 10/04/17) vancomycin (Unverified Allergy, Unknown, 01/24/15) maris syndrome Uncoded Allergies: SURGICAL GLUE (Allergy, Unknown, 03/13/15) Home Medications Levetiracetam 750 Mg Tablet, 750 MG PO BID Prescribed by: RAJIV TERRY on 03/12/19 1708 Naproxen 500 Mg Tablet, 500 MG PO BID Prescribed by: SHAILESH VAZQUEZ on 10/19/18 2258 Naproxen Sodium Unknown Strength Tablet, Unknown Dose PO BID, (Reported) Patient Home Medication List Home Medication List Reviewed: Yes Review of Systems Review of Systems Constitutional: see HPI; No chills, No fever EENTM: no symptoms reported Respiratory: no symptoms reported Cardiovascular: see HPI, chest pain; No edema Gastrointestinal: No abdominal pain, No nausea, No vomiting Genitourinary: no symptoms reported Musculoskeletal: No back pain, No muscle pain Skin: no symptoms reported Hematologic/Lymphatic: No Symptoms Reported All Other Systems Reviewed Negative Unless Noted: Yes Past Rgsnjlb-Fknffb-Xaqrkc Hx Patient Social History Tobacco Use?: Yes Tobacco type used: Cigarettes Smoking Status: Current Everyday Smoker Substance use?: Yes Substance type: Marijuana Pt feels they are or have been: No Immunizations Up To Date Tetanus Booster (TDap): Unknown First/Initial COVID19 Vaccinat: DENIES Seasonal Allergies Seasonal Allergies: No Past Medical History Surgeries: Yes Abdominal, Adenoidectomy, Bladder Surgery, Ear Surgery, Neurological, Tonsillectomy Respiratory: Yes Cardiac: No Neurological: Yes ([employer] SHUNT for BENIGN INTRACRANIAL HYPERTENSION) Headaches /Migraines, Seizure Disorder Reproductive Disorders: Yes (12 CM CYST OF THE LEFT SALPINX STATUS POST RESECTION) Female Reproductive Disorders: Denies, Menstrual Problems, Ovarian Cyst, Polyc ystic Ovarian Dis Genitourinary: No Gastrointestinal: Yes (abdominopelvic adhesions) Musculoskeletal: No Endocrine: Yes Diabetes, Non-Insulin dep HEENT: No Cancer: Yes Lymphoma Did You Recieve Any Treatments: No Psychosocial: Yes Pseudo Seizures, Anxiety Integumentary: No Blood Disorders: No Family Medical History Reviewed Nursing Family Hx No Pertinent Family Hx, Seizures Physical Exam Vital Signs Vital Signs - First Documented Capillary Refill : Less Than 3 Seconds Height, Weight, BMI Height: 5'4.00" Weight: 306lbs. 0oz. [id number]; 53.00 BMI Method:Actual General Appearance: No Apparent Distress, WD/WN, Obese HEENT: PERRL/EOMI, TMs Normal, Pharynx Normal Neck: Full Range of Motion, Normal Inspection, Non Tender, Supple Respiratory: Lungs Clear, Normal Breath Sounds Cardiovascular: Regular Rate, Rhythm, No Murmur Gastrointestinal: Non Tender, Soft Back: Normal Inspection, No CVA Tenderness, No Vertebral Tenderness Extremity: Normal Inspection, Normal Range of Motion, Non Tender Neurologic/Psychiatric: Alert, Oriented x3, No Motor/Sensory Deficits, Normal Mood/Affect, profile saw operator II-XII Norm as Tested Skin: Normal Color, Warm/Dry Progress/Results/Core Measures Suspected Sepsis SIRS Temperature: Pulse: 90 Respiratory Rate: 18 Laboratory Tests 03/08/21 21:22: White Blood Count 14.6H Blood Pressure 127 /69 Mean: 88 Laboratory Tests 03/08/21 21:22: Creatinine 0.81, INR Comment 0.9, Platelet Count 262, Total Bilirubin 0.3 Results/Orders Lab Results Laboratory Tests Test 03/08/21 20:35 03/08/21 21:22 Range/Units Glucometer 109 70-110 MG/DL White Blood Count 14.6 H 4.3-11.0 10^3/uL Red Blood Count 5.61 H 3.80-5.11 10^6/uL Hemoglobin 15.2 11.5-16.0 g/dL Hematocrit 46 35-52 % Mean Corpuscular Volume 82 80-99 fL Mean Corpuscular Hemoglobin 27 25-34 pg Mean Corpuscular Hemoglobin Concent 33 32-36 g/dL Red Cell Distribution Width 13.0 10.0-14.5 % Platelet Count 262 130-400 10^3/uL Mean Platelet Volume 11.4 9.0-12.2 fL Immature Granulocyte % (Auto) 1 % Neutrophils (%) (Auto) 66 42-75 % Lymphocytes (%) (Auto) 26 12-44 % Monocytes (%) (Auto) 6 0-12 % Eosinophils (%) (Auto) 1 0-10 % Basophils (%) (Auto) 0 0-10 % Neutrophils # (Auto) 9.6 H 1.8-7.8 10^3/uL Lymphocytes # (Auto) 3.8 1.0-4.0 10^3/uL Monocytes # (Auto) 0.9 0.0-1.0 10^3/uL Eosinophils # (Auto) 0.2 0.0-0.3 10^3/uL Basophils # (Auto) 0.1 0.0-0.1 10^3/uL Immature Granulocyte # (Auto) 0.1 0.0-0.1 10^3/uL Prothrombin Time 12.8 12.2-14.7 SEC INR Comment 0.9 0.8-1.4 Activated Partial Thromboplast Time 28 24-35 SEC Sodium Level 140 135-145 MMOL/L Potassium Level 3.8 3.6-5.0 MMOL/L Chloride Level 103 98-107 MMOL/L Carbon Dioxide Level 26 21-32 MMOL/L Anion Gap 11 5-14 MMOL/L Blood Urea Nitrogen 12 7-18 MG/DL Creatinine 0.81 0.60-1.30 MG/DL Estimat Glomerular Filtration Rate > 60 BUN/Creatinine Ratio 15 Glucose Level 96 70-105 MG/DL Calcium Level 8.8 8.5-10.1 MG/DL Corrected Calcium 9.0 8.5-10.1 MG/DL Magnesium Level 1.9 1.6-2.4 MG/DL Total Bilirubin 0.3 0.1-1.0 MG/DL Aspartate Amino Transf (AST/SGOT) 18 5-34 U/L Alanine Aminotransferase (ALT/SGPT) 29 0-55 U/L Alkaline Phosphatase 65 40-136 U/L Myoglobin 25.7 10.0-92.0 NG/ML Troponin I < 0.028 <0.028 NG/ML Total Protein 7.2 6.4-8.2 GM/DL Albumin 3.7 3.2-4.5 GM/DL My Orders Orders - RAJIV TERRY MD Cbc With Automated Diff (03/08/21 20:17) Magnesium (03/08/21 20:17) Chest 1 View, Ap/Pa Only (03/08/21 20:17) Ekg Tracing (03/08/21 20:17) Comprehensive Metabolic Panel (03/08/21 20:17) Myoglobin Serum (03/08/21 20:17) Protime With Inr (03/08/21 20:17) Partial Thromboplastin Time (03/08/21 20:17) O2 (03/08/21 20:17) Monitor-Rhythm Ecg Trace Only (03/08/21 20:17) Lipid Panel (03/09/21 06:00) Ed Iv/Invasive Line Start (03/08/21 20:17) Troponin I (03/08/21 20:17) Aspirin Chewable Tablet (Baby Aspirin Ch (03/08/21 20:30) Ed Iv/Invasive Line Start (03/08/21 20:17) Ns Iv 1000 Ml (Sodium Chloride 0.9%) (03/08/21 20:30) Ketorolac Injection (Toradol Injection) (03/08/21 20:17) Levetiracetam Injection (Keppra Injectio (03/08/21 20:17) Accucheck Stat ONCE (03/08/21 20:17) Manual Differential (03/08/21 21:22) Medications Given in ED Current Medications Medications Dose Ordered Sig/Laureano Route Start Time Stop Time Status Last Admin Dose Admin Aspirin 324 mg ONCE ONCE PO 03/08/21 20:30 03/08/21 20:31 DC 03/08/21 20:36 324 MG Sodium Chloride 1,000 ml @ 0 mls/hr Q0M ONCE IV 03/08/21 20:30 03/08/21 20:31 DC 03/08/21 20:35 0 MLS/HR Vital Signs/I&O 03/08/21 03/08/21 20:00 20:00 Temp 36.6 Pulse 90 Resp 18 B/P (MAP) 127/69 (88) Pulse Ox 100 O2 Delivery Room Air Room Air Capillary Refill : Less Than 3 Seconds Blood Pressure Mean: 88 Point of Care Testing Finger Stick Blood Glucose: 109 Progress Note : Progress Note Seen and evaluated. Chest pain protocol ordered. Keppra 500 mg IV ordered. Normal saline 1 L bolus. Aspirin 324 mg p.o. ordered. Monitor patient. 2109: Patient has been released from custody and she is working on a ride. Keppra is infusing. Apparently her labs are hemolyzed so we are redrawing those now. Initial EKG is negative. Otherwise no distress. Monitor patient. Anticipate discharge home. Patient agrees and has her medicines at home. 2139: Labs pending. CBC process and slightly high white count which is consistent with the seizures today. Chemistries are pending. Patient states that she has to go as her ride is her dad who states he will not wait if she is not outside when he gets here. Patient would like to go ahead and go now.. We will call her if there is any abnormalities. Patient understands that there is some risk in this but she is okay with go ahead and leaving. Discharged home with return precautions. Patient verbalized understanding of instructions and agreement with plan. 2203: No concerning findings on chemistry. ECG Initial ECG Impression Date: Mar 08, 2021 Initial ECG Impression Time: 20:02 Initial ECG Rate: 89 Initial ECG Rhythm: Normal Sinus Initial ECG Impression: Normal Initial ECG Comparisson: Unchanged Comment Sinus rhythm with normal axis. No evidence of ST elevation [place]. Unchanged from 04/09/2018. Interpreted by me. Diagnostic Imaging Diagonstic Imaging: Xray Plain Films/CT/US/NM/MRI: chest Comments [facility] [place] NAME: ALEJANDRA KAUFMAN [facility] REC#: [id number] PT STATUS: REG ER : 1995 PHYSICIAN: RAJIV TERRY MD ADMIT DATE: 03/08/21/ER Draft Date of Exam:03/08/21 CHEST 1 VIEW, AP/PA ONLY EXAMINATION: Chest 1 view HISTORY: Chest pain. COMPARISON: 03/12/2019. FINDINGS: The lung volumes are low. No focal consolidation is seen. No large pleural effusion or pneumothorax is seen. The cardiomediastinal silhouette is prominent. No acute osseous abnormality is seen. IMPRESSION: 1. Low lung volumes, likely due to poor inspiratory effort. 2. Prominent cardiac silhouette, likely due to the low lung volumes. No evidence of pulmonary edema. Dictated on workstation # [id number] Dict: 03/08/212101 Trans: 03/08/212103 [facility] [id number] Interpreted by: ASA DIGGS DO Electronically signed by: Departure Impression Primary Impression: Seizure Additional Impression: Chest pain Qualified Codes: R07.9 - Chest pain, unspecified Disposition: 01 HOME, SELF-CARE Condition: Improved Departure-Patient Inst. Decision time for Depature: 21:40 Referrals: NO,LOCAL PHYSICIAN (PCP/Family) Primary Care Physician Patient Instructions: Chest Pain (DC), Seizures, Adult (DC) Add. Discharge Instructions: All discharge instructions reviewed with patient and/or family. Voiced understanding. Continue home medications as directed. Follow-up with your doctor this week as scheduled for recheck and further evaluation. Return for worse pain, fever, vomiting, weakness, breathing problems or other concerns as needed. Drink plenty of fluids. RAJIV TERRY MD Mar 08, 2021 21:11
[2021-03-08 21:31] LABS: BASOPHILS # (AUTO) 0.1 10^3/uL (0.0-0.1); BASOPHILS % (AUTO) 0 % (0-10); EOSINOPHILS # (AUTO) 0.2 10^3/uL (0.0-0.3); EOSINOPHILS % (AUTO) 1 % (0-10); HEMATOCRIT 46 % (35-52); HEMOGLOBIN 15.2 g/dL (11.5-16.0); LYMPHOCYTES # (AUTO) 3.8 10^3/uL (1.0-4.0); LYMPHOCYTES % (AUTO) 26 % (12-44); MEAN CORPUSCULAR HEMOGLOBIN 27 pg (25-34); MEAN CORPUSCULAR HGB CONC 33 g/dL (32-36); MEAN CORPUSCULAR VOLUME 82 fL (80-99); MEAN PLATELET VOLUME 11.4 fL (9.0-12.2); MONOCYTES # (AUTO) 0.9 10^3/uL (0.0-1.0); MONOCYTES % (AUTO) 6 % (0-12); NEUTROPHILS # (AUTO) 9.6 10^3/uL (1.8-7.8); NEUTROPHILS % (AUTO) 66 % (42-75); PLATELET COUNT 262 10^3/uL (130-400); WHITE BLOOD COUNT 14.6 10^3/uL (4.3-11.0)
[2021-03-08 21:40] LABS: ALBUMIN 3.7 GM/DL (3.2-4.5)
[2021-03-08 21:41] LABS: CHLORIDE 103 MMOL/L (98-107); POTASSIUM 3.8 MMOL/L (3.6-5.0); SODIUM 140 MMOL/L (135-145)
[2021-03-08 21:42] LABS: CALCIUM 8.8 MG/DL (8.5-10.1)
[2021-03-08 21:43] LABS: GLUCOSE 96 MG/DL (70-105); TOTAL PROTEIN 7.2 GM/DL (6.4-8.2)
[2021-03-08 21:44] LABS: CARBON DIOXIDE 26 MMOL/L (21-32)
[2021-03-08 21:45] VITALS: BP 136/88
[2021-03-08 21:45] LABS: BILIRUBIN,TOTAL 0.3 MG/DL (0.1-1.0)
[2021-03-08 21:46] LABS: ALKALINE PHOSPHATASE 65 U/L (40-136); INR 0.9 (0.8-1.4); PROTHROMBIN TIME PATIENT 12.8 SEC (12.2-14.7)
[2021-03-08 21:47] LABS: CREATININE SERUM 0.81 MG/DL (0.60-1.30); GFR ESTIMATED > 60
[2021-03-08 21:48] LABS: BUN/CREATININE RATIO 15
[2021-03-08 21:49] LABS: MAGNESIUM 1.9 MG/DL (1.6-2.4)
[2021-03-08 21:50] LABS: ALANINE AMINOTRANSFERASE 29 U/L (0-55)
[2021-03-08 22:07] LABS: EOSINOPHILS % (MANUAL) 1 %; LYMPHOCYTES % (MANUAL) 18 %; MONOCYTES % (MANUAL) 7 %; NEUTROPHILS % (MANUAL) 74 %; RBC MORPH NORMAL
== END 2021-03-08 21:45 | disposition home or self-care (01) ==
LOC: EDUNIT# 19:58 → ER 20:01
DX: G40.909 Epilepsy, unspecified, not intractable, without status epilepticus (principal); R07.9 Chest pain, unspecified; E66.9 Obesity, unspecified; E11.9 Type 2 diabetes mellitus without complications; F17.210 Nicotine dependence, cigarettes, uncomplicated; Z68.43 Body mass index [BMI] 50.0-59.9, adult
CPT/HCPCS: 36415; 71045; 80053; 82947; 83735; 83874; 84484; 85007; 85027; 85610; 85730; 93005; 93041

== ENCOUNTER 2021-07-23 01:24 | Emergency (ER) | payer BC, OTHER ==
[~2021-07-23] VITALS: Ht 162 cm; Wt 149.7 kg
[2021-07-23 02:50] LABS: BILIRUBIN,URINE NEGATIVE (NEGATIVE); CLARITY,URINE CLEAR; COLOR,URINE YELLOW; GLUCOSE, URINE (UA) NEGATIVE (NEGATIVE); KETONES,URINE NEGATIVE (NEGATIVE); LEUKOCYTE ESTERASE ,URINE NEGATIVE (NEGATIVE); NITRITE,URINE NEGATIVE (NEGATIVE); PH,URINE 8.5 (5-9); PROTEIN,URINE NEGATIVE (NEGATIVE)
[2021-07-23 02:57] LABS: BASOPHILS # (AUTO) 0.1 10^3/uL (0.0-0.1); BASOPHILS % (AUTO) 1 % (0-10); EOSINOPHILS # (AUTO) 0.2 10^3/uL (0.0-0.3); EOSINOPHILS % (AUTO) 2 % (0-10); PLATELET COUNT 153 10^3/uL (130-400)
[2021-07-23 02:59] LABS: HEMATOCRIT 48 % (35-52); HEMOGLOBIN 14.9 g/dL (11.5-16.0); LYMPHOCYTES % (AUTO) 32 % (12-44); MEAN CORPUSCULAR HEMOGLOBIN 27 pg (25-34); MEAN CORPUSCULAR HGB CONC 31 g/dL (32-36); MEAN CORPUSCULAR VOLUME 87 fL (80-99); MEAN PLATELET VOLUME 11.7 fL (9.0-12.2); MONOCYTES # (AUTO) 0.7 10^3/uL (0.0-1.0); MONOCYTES % (AUTO) 8 % (0-12); NEUTROPHILS # (AUTO) 5.4 10^3/uL (1.8-7.8); NEUTROPHILS % (AUTO) 57 % (42-75); WHITE BLOOD COUNT 9.5 10^3/uL (4.3-11.0)
[2021-07-23 03:03] LABS: SMEAR SCAN COMMENT YES
[2021-07-23 03:09] LABS: BACTERIA,URINE TRACE /HPF; SQUAMOUS EPITHELIAL CELL,UR 0-2 /HPF
[2021-07-23 03:13] LABS: ALBUMIN 3.5 GM/DL (3.2-4.5); CHLORIDE 107 MMOL/L (98-107); POTASSIUM 4.1 MMOL/L (3.6-5.0); SODIUM 139 MMOL/L (135-145)
[2021-07-23 03:13] LABS: AMPHETAMINE SCREEN, URINE NEGATIVE (NEGATIVE); BARBITURATE SCREEN URINE NEGATIVE (NEGATIVE); BENZODIAZEPINES SCREEN URINE NEGATIVE (NEGATIVE); CANNABINOID SCREEN, URINE POSITIVE (NEGATIVE); COCAINE SCREEN URINE NEGATIVE (NEGATIVE); METHADONE STAT NEGATIVE (NEGATIVE); METHAMPHETAMINE SCREEN URINE S POSITIVE (NEGATIVE); OPIATE SCREEN URINE NEGATIVE (NEGATIVE); OXYCODONE STAT NEGATIVE (NEGATIVE); PROPOXYPHENE STAT NEGATIVE (NEGATIVE); TRICYCLIC ANTIDEPRESSANTS SCRE NEGATIVE (NEGATIVE)
[2021-07-23 03:15] LABS: CALCIUM 8.8 MG/DL (8.5-10.1)
[2021-07-23 03:16] LABS: GLUCOSE 97 MG/DL (70-105); TOTAL PROTEIN 6.9 GM/DL (6.4-8.2)
[2021-07-23 03:17] LABS: CARBON DIOXIDE 20 MMOL/L (21-32)
[2021-07-23 03:18] LABS: BILIRUBIN,TOTAL 0.3 MG/DL (0.1-1.0)
[2021-07-23 03:19] LABS: ALKALINE PHOSPHATASE 67 U/L (40-136); CREATININE SERUM 0.73 MG/DL (0.60-1.30); GFR ESTIMATED 98
[2021-07-23 03:21] LABS: ACETAMINOPHEN < 10 UG/ML (10-30); BUN/CREATININE RATIO 11
[2021-07-23 03:22] LABS: ALANINE AMINOTRANSFERASE 53 U/L (0-55); MAGNESIUM 1.9 MG/DL (1.6-2.4)
--- NOTE | 2021-07-23 03:55 | ED General ---
General Chief Complaint: General Problems/Pain Stated Complaint: UNRESPONSIVE Nursing Triage Note: [facility] and Care Home staff report that the pt was given her typical meds at 5pm 07/22 at the Care Home. Pt reports that the medications looked different than her normal meds but she was told"take them anyways". She then reportedly had been up alert and walking around at 8pm. When Care Home staff went to check on the pt she was reported to be unresponsive. EMS states she has been responsive and now c/o tingling of hands and face Allergies and Home Medications Allergies Coded Allergies: amoxicillin (Verified Allergy, Mild, 05/18/13) Penicillins (Verified Allergy, Unknown, 10/04/17) vancomycin (Unverified Allergy, Unknown, 01/24/15) maris syndrome Uncoded Allergies: SURGICAL GLUE (Allergy, Unknown, 03/13/15) Patient Home Medication List Levetiracetam (Levetiracetam) 750 Mg Tablet, 750 MG PO BID Prescribed by: RAJIV TERRY on 03/12/19 1708 Naproxen (Naproxen) 500 Mg Tablet, 500 MG PO BID Prescribed by: SHAILESH VAZQUEZ on 10/19/18 0048 Naproxen Sodium (Anaprox Ds) Unknown Strength Tablet, Unknown Dose PO BID, (Rep orted) Entered as Reported by: AIMEE DOLAN on 04/25/19 1427 Past Psuksrh-Scoheq-Pxhrym Hx Immunizations Up To Date Tetanus Booster (TDap): Unknown Seasonal Allergies Seasonal Allergies: No Past Medical History Surgeries: Yes Abdominal, Adenoidectomy, Bladder Surgery, Ear Surgery, Neurological, Tonsillectomy Respiratory: Yes Cardiac: No Neurological: Yes ([employer] SHUNT for BENIGN INTRACRANIAL HYPERTENSION) Headaches /Migraines, Seizure Disorder Reproductive Disorders: Yes (12 CM CYST OF THE LEFT SALPINX STATUS POST RESECTION) Female Reproductive Disorders: Denies, Menstrual Problems, Ovarian Cyst, Polycystic Ovarian Dis Genitourinary: No Gastrointestinal: Yes (abdominopelvic adhesions) Musculoskeletal: No Endocrine: Yes Diabetes, Non-Insulin dep HEENT: No Cancer: Yes Lymphoma Did You Recieve Any Treatments: No Psychosocial: Yes Pseudo Seizures, Anxiety Integumentary: No Blood Disorders: No Family Medical History No Pertinent Family Hx, Seizures Physical Exam Vital Signs Vital Signs - First Documented 07/23/21 01:26 Temp 36.6 Pulse 90 Resp 18 Pulse Ox 98 Capillary Refill : Less Than 3 Seconds Height, Weight, BMI Height: 5'4.00" Weight: 306lbs. 0oz. [id number]; 57.00 BMI Method:Actual Progress/Results/Core Measures Suspected Sepsis SIRS Temperature: Pulse: 90 Respiratory Rate: 18 Laboratory Tests 07/23/21 02:43: White Blood Count 9.5 Blood Pressure / Mean: Laboratory Tests 07/23/21 02:43: Creatinine 0.73, Platelet Count 153, Total Bilirubin 0.3 Results/Orders Lab Results Laboratory Tests Test 07/23/21 02:30 07/23/21 02:43 Range/Units Urine Color YELLOW Urine Clarity CLEAR Urine pH 8.5 5-9 Urine Specific [place] 1.015 L 1.016-1.022 Urine Protein NEGATIVE NEGATIVE Urine Glucose (UA) NEGATIVE NEGATIVE Urine Ketones NEGATIVE NEGATIVE Urine Nitrite NEGATIVE NEGATIVE Urine Bilirubin NEGATIVE NEGATIVE Urine Urobilinogen 1.0 < = 1.0 MG/DL Urine Leukocyte Esterase NEGATIVE NEGATIVE Urine RBC (Auto) NEGATIVE NEGATIVE Urine RBC NONE /HPF Urine WBC NONE /HPF Urine Squamous Epithelial Cells 0-2 /HPF Urine Crystals NONE /LPF Urine Bacteria TRACE /HPF Urine Casts NONE /LPF Urine Mucus NEGATIVE /LPF Urine Culture Indicated NO Urine Test NEGATIVE NEGATIVE Urine Opiates Screen NEGATIVE NEGATIVE Urine Oxycodone Screen NEGATIVE NEGATIVE Urine Methadone Screen NEGATIVE NEGATIVE Urine Propoxyphene Screen NEGATIVE NEGATIVE Urine Barbiturates Screen NEGATIVE NEGATIVE Ur Tricyclic Antidepressants Screen NEGATIVE NEGATIVE Urine Phencyclidine Screen NEGATIVE NEGATIVE Urine Amphetamines Screen NEGATIVE NEGATIVE Urine Methamphetamines Screen POSITIVE H NEGATIVE Urine Benzodiazepines Screen NEGATIVE NEGATIVE Urine Cocaine Screen NEGATIVE NEGATIVE Urine Cannabinoids Screen POSITIVE H NEGATIVE Influenza Type A (RT-PCR) Not Detected Not Detecte Influenza Type B (RT-PCR) Not Detected Not Detecte SARS-CoV-2 RNA (RT-PCR) Not Detected Not Detecte White Blood Count 9.5 4.3-11.0 10^3/uL Red Blood Count 5.50 H 3.80-5.11 10^6/uL Hemoglobin 14.9 11.5-16.0 g/dL Hematocrit 48 35-52 % Mean Corpuscular Volume 87 80-99 fL Mean Corpuscular Hemoglobin 27 25-34 pg Mean Corpuscular Hemoglobin Concent 31 L 32-36 g/dL Red Cell Distribution Width 13.5 10.0-14.5 % Platelet Count 153 130-400 10^3/uL Mean Platelet Volume 11.7 9.0-12.2 fL Immature Granulocyte % (Auto) 1 % Neutrophils (%) (Auto) 57 42-75 % Lymphocytes (%) (Auto) 32 12-44 % Monocytes (%) (Auto) 8 0-12 % Eosinophils (%) (Auto) 2 0-10 % Basophils (%) (Auto) 1 0-10 % Neutrophils # (Auto) 5.4 1.8-7.8 10^3/uL Lymphocytes # (Auto) 3.0 1.0-4.0 10^3/uL Monocytes # (Auto) 0.7 0.0-1.0 10^3/uL Eosinophils # (Auto) 0.2 0.0-0.3 10^3/uL Basophils # (Auto) 0.1 0.0-0.1 10^3/uL Immature Granulocyte # (Auto) 0.1 0.0-0.1 10^3/uL Percent Immature Platelet Fraction 9.2 H 0.0-7.6 % Sodium Level 139 135-145 MMOL/L Potassium Level 4.1 3.6-5.0 MMOL/L Chloride Level 107 98-107 MMOL/L Carbon Dioxide Level 20 L 21-32 MMOL/L Anion Gap 12 5-14 MMOL/L Blood Urea Nitrogen 8 7-18 MG/DL Creatinine 0.73 0.60-1.30 MG/DL Estimat Glomerular Filtration Rate 98 BUN/Creatinine Ratio 11 Glucose Level 97 70-105 MG/DL Calcium Level 8.8 8.5-10.1 MG/DL Corrected Calcium 9.2 8.5-10.1 MG/DL Magnesium Level 1.9 1.6-2.4 MG/DL Total Bilirubin 0.3 0.1-1.0 MG/DL Aspartate Amino Transf (AST/SGOT) 45 H 5-34 U/L Alanine Aminotransferase (ALT/SGPT) 53 0-55 U/L Alkaline Phosphatase 67 40-136 U/L Total Protein 6.9 6.4-8.2 GM/DL Albumin 3.5 3.2-4.5 GM/DL Acetaminophen Level < 10 L 10-30 UG/ML Serum Alcohol < 10 <10 MG/DL Smear Scan YES My Orders Orders - SHAILESH VAZQUEZ DO Accucheck Stat ONCE (11/20/21 01:42) Ed Iv/Invasive Line Start (07/23/21 01:42) Ekg Tracing (07/23/21 01:42) Monitor-Rhythm Ecg Trace Only (07/23/21 01:42) Straight Cath For Spec.-Adult (07/23/21 01:42) Acetaminophen (07/23/21 01:42) Alcohol (07/23/21 01:42) Cbc With Automated Diff (07/23/21 01:42) Comprehensive Metabolic Panel (07/23/21 01:42) Drug Screen Stat (Urine) (07/23/21 01:42) Magnesium (07/23/21 01:42) Ua Culture If Indicated (07/23/21 01:42) Influenza A And B By Pcr (07/23/21 02:21) Covid 19 Inhouse Test (07/23/21 02:21) Hcg,Qualitative Urine (07/23/21 02:44) Vital Signs/I&O 07/23/21 01:26 Temp 36.6 Pulse 90 Resp 18 B/P (MAP) Pulse Ox 98 Capillary Refill : Less Than 3 Seconds Point of Care Testing Finger Stick Blood Glucose: 100 Blood Glucose Action Taken: 0209 Departure Impression Primary Impression: Methamphetamine use Additional Impressions: Marijuana use BRIEF ALTERED MENTAL STATUS Disposition: 21 DIS/XFER COURT/LAW [employer] Condition: Stable Departure-Patient Inst. Decision time for Depature: 03:50 Referrals: NO,LOCAL PHYSICIAN (PCP/Family) Primary Care Physician Patient Instructions: Drug Abuse and Drug Addiction (DC) Add. Discharge Instructions: NO DRUGS!!! TAKE YOUR PRESCRIBED MEDICATION DAILY FOLLOW UP WITH YOUR DR NEEDED All discharge instructions reviewed with patient and/or family. Voiced understanding. SHAILESH VAZQUEZ DO Jul 23, 2021 03:55
== END 2021-07-23 04:06 ==
LOC: EDUNIT# 01:24 → ER 01:26
DX: F15.90 Other stimulant use, unspecified, uncomplicated (principal); F12.90 Cannabis use, unspecified, uncomplicated; R41.82 Altered mental status, unspecified; G40.909 Epilepsy, unspecified, not intractable, without status epilepticus; E11.9 Type 2 diabetes mellitus without complications; Z20.822 Contact with and (suspected) exposure to COVID-19; Z79.899 Other long term (current) drug therapy
CPT/HCPCS: 80053; 80306; 81000; 83735; 84703; 85025; 87636; 93005; 93041; 99284; G0480 ×2; 36415; 80320; 80329

== ENCOUNTER 2021-08-01 18:24 | Emergency (ER) | payer OTHER ==
[~2021-08-01] VITALS: Ht 162 cm; Wt 145.0 kg
[~2021-08-01 18:24] MED LIST changes: +CYCL10TA25 PO; -CYCL10TA9 PO
[2021-08-01] MEDS ORDERED: LACTATED RINGERS 1,000 ML IV ONE (19:15)
[2021-08-01 19:18] LABS: BILIRUBIN,URINE NEGATIVE (NEGATIVE); CLARITY,URINE CLEAR; COLOR,URINE YELLOW; GLUCOSE, URINE (UA) NEGATIVE (NEGATIVE); KETONES,URINE NEGATIVE (NEGATIVE); LEUKOCYTE ESTERASE ,URINE NEGATIVE (NEGATIVE); NITRITE,URINE NEGATIVE (NEGATIVE); PH,URINE 6.5 (5-9); PROTEIN,URINE NEGATIVE (NEGATIVE)
[2021-08-01 19:27] LABS: BACTERIA,URINE LARGE /HPF
[2021-08-01 19:32] LABS: AMPHETAMINE SCREEN, URINE NEGATIVE (NEGATIVE); BARBITURATE SCREEN URINE NEGATIVE (NEGATIVE); BENZODIAZEPINES SCREEN URINE NEGATIVE (NEGATIVE); CANNABINOID SCREEN, URINE NEGATIVE (NEGATIVE); COCAINE SCREEN URINE NEGATIVE (NEGATIVE); METHADONE STAT NEGATIVE (NEGATIVE); METHAMPHETAMINE SCREEN URINE S NEGATIVE (NEGATIVE); OPIATE SCREEN URINE NEGATIVE (NEGATIVE); OXYCODONE STAT NEGATIVE (NEGATIVE); PROPOXYPHENE STAT NEGATIVE (NEGATIVE); TRICYCLIC ANTIDEPRESSANTS SCRE NEGATIVE (NEGATIVE)
[2021-08-01] MEDS ORDERED: fentaNYL INJ 100 MCG/2 ML AMP IVP ONE (19:45)
[2021-08-01 20:41] LABS: BASOPHILS # (AUTO) 0.1 10^3/uL (0.0-0.1); BASOPHILS % (AUTO) 1 % (0-10); EOSINOPHILS # (AUTO) 0.2 10^3/uL (0.0-0.3); EOSINOPHILS % (AUTO) 1 % (0-10); HEMATOCRIT 44 % (35-52); LYMPHOCYTES # (AUTO) 3.2 10^3/uL (1.0-4.0); LYMPHOCYTES % (AUTO) 25 % (12-44); MEAN CORPUSCULAR HEMOGLOBIN 28 pg (25-34); MEAN CORPUSCULAR HGB CONC 34 g/dL (32-36); MEAN CORPUSCULAR VOLUME 81 fL (80-99); MEAN PLATELET VOLUME 11.6 fL (9.0-12.2); MONOCYTES # (AUTO) 0.7 10^3/uL (0.0-1.0); MONOCYTES % (AUTO) 6 % (0-12); NEUTROPHILS # (AUTO) 8.7 10^3/uL (1.8-7.8); NEUTROPHILS % (AUTO) 67 % (42-75); PLATELET COUNT 271 10^3/uL (130-400); WHITE BLOOD COUNT 12.8 10^3/uL (4.3-11.0)
[2021-08-01 20:55] LABS: ALBUMIN 3.7 GM/DL (3.2-4.5); POTASSIUM 3.6 MMOL/L (3.6-5.0)
[2021-08-01 20:57] LABS: CALCIUM 9.1 MG/DL (8.5-10.1)
[2021-08-01 20:58] LABS: TOTAL PROTEIN 7.3 GM/DL (6.4-8.2)
[2021-08-01 21:00] LABS: BILIRUBIN,TOTAL 0.2 MG/DL (0.1-1.0)
[2021-08-01] MEDS ORDERED: fentaNYL INJ 100 MCG/2 ML AMP IM ONE (21:00)
[2021-08-01] MEDS ORDERED: toPIRamate 100 MG (TOPAMAX) TAB PO ONE (21:00)
[2021-08-01 21:02] LABS: CREATININE SERUM 0.78 MG/DL (0.60-1.30)
[2021-08-01 21:04] LABS: MAGNESIUM 1.8 MG/DL (1.6-2.4)
[2021-08-01 21:24] LABS: TSH (THYROID ANALYZER) 2.17 UIU/ML (0.35-4.94)
--- NOTE | 2021-08-01 21:32 | Diagnostic Imaging Report ---
PROCEDURE: CT head and CT cervical spine without contrast. TECHNIQUE: Multiple contiguous axial images were obtained through the brain and cervical spine without the use of intravenous contrast. Sagittal and coronal reformations through the cervical spine were then performed. Auto Exposure Controls were utilized during the CT exam to meet ALARA standards for radiation dose reduction. INDICATION: Seizure CT HEAD: The ventricles are normal in size, shape and position. There are no masses or hemorrhages. There are no extra-axial fluid collections. IMPRESSION: 1. Negative CT head. CT CERVICAL SPINE: The odontoid is intact. Atlantoaxial and basocervical relationships appear normal. Vertebral body height and alignment appear normal. Disc spaces are well-maintained. IMPRESSION: 1. Negative CT cervical spine. Dictated by: Dictated on workstation # [id number]
--- NOTE | 2021-08-01 22:21 | ED Neurological Problem ---
General Chief Complaint: Neurological Problems Stated Complaint: SEIZURE Nursing Triage Note: PT TO [facility] BY [facility] WITH CC OF A SEIZURE WHILE IN SENIOR CARE, HIT HER HEAD ON THE CONCRETE, HEMOTOMA ON POSTERIOR HEAD. PT TALKING SLOWLY AT TRIAGE. Source: patient, police Exam Limitations: no limitations History of Present Illness Date Seen by Provider: Aug 01, 2021 Time Seen by Provider: 19:05 Initial Comments This 25-year-old young lady is brought to the emergency room via EMS accompanied by law enforcement. She is presently incarcerated and had an unwitnessed seizu re in her detention cell. Patient has known history of seizures. She has been followed by specialists in [place]. Patient states she was supposed to get a therapeutic lumbar puncture performed the day before but could not proceed with that therapy due to incarceration. She also states she is supposed to be on diuretic therapy but that has been stopped while incarcerated. She reports understanding that her Topamax dosing should be 50 mg twice daily, but she is receiving 150 mg at bedtime in the detention. She is taking Keppra 750 mg as she is prescribed. She has not had her evening dose of medications yet. She denies being ill in any way recently. She complains of tenderness over the right parietal scalp and some mild right neck tenderness and pain. Allergies and Home Medications Allergies Coded Allergies: amoxicillin (Verified Allergy, Mild, 05/18/13) Penicillins (Verified Allergy, Unknown, 10/04/17) vancomycin (Unverified Allergy, Unknown, 01/24/15) maris syndrome Uncoded Allergies: SURGICAL GLUE (Allergy, Unknown, 03/13/15) Patient Home Medication List Home Medication List Reviewed: Yes Levetiracetam (Levetiracetam) 750 Mg Tablet, 750 MG PO BID Prescribed by: RAJIV TERRY on 03/12/19 1708 Naproxen (Naproxen) 500 Mg Tablet, 500 MG PO BID Prescribed by: SHAILESH VAZQUEZ on 10/19/18 2258 Naproxen Sodium (Anaprox Ds) Unknown Strength Tablet, Unknown Dose PO BID, (Reported) Entered as Reported by: AIMEE DOLAN on 04/25/19 1427 Review of Systems Review of Systems Constitutional: no symptoms reported Eyes: No Symptoms Reported Ears, Nose, Mouth, Throat: no symptoms reported Respiratory: no symptoms reported Cardiovascular: no symptoms reported Gastrointestinal: no symptoms reported Genitourinary: no symptoms reported : No Musculoskeletal: see HPI Skin: no symptoms reported Psychiatric/Neurological: See HPI Endocrine: No Symptoms Reported Hematologic/Lymphatic: No Symptoms Reported Past Wvraumw-Voacum-Rofcac Hx Patient Social History Tobacco Use?: No Substance use?: No Alcohol Use?: No Immunizations Up To Date Tetanus Booster (TDap): Unknown Influenza Vaccine Up-to-Date: No; Not Current First/Initial COVID19 Vaccinat: DENIES Second COVID19 Vaccination Osorio: DENIES Third COVID19 Vaccination Date: DENIES Seasonal Allergies Seasonal Allergies: No Past Medical History Surgeries: Yes Abdominal, Adenoidectomy, Bladder Surgery, Ear Surgery, Neurological (Shunt), Tonsillectomy Respiratory: Yes Cardiac: No Neurological: Yes (GRAIN OILSEED OR PASTURE GROWER SHUNT for BENIGN INTRACRANIAL HYPERTENSION) Headaches /Migraines, Seizure Disorder Reproductive Disorders: Yes (12 CM CYST OF THE LEFT SALPINX STATUS POST RESECTION) Female Reproductive Disorders: Denies, Menstrual Problems, Ovarian Cyst, Polycystic Ovarian Dis Genitourinary: No Gastrointestinal: Yes (abdominopelvic adhesions) Musculoskeletal: No Endocrine: Yes Diabetes, Non-Insulin dep HEENT: No Cancer: Yes Lymphoma Did You Recieve Any Treatments: No Psychosocial: Yes Pseudo Seizures, Anxiety Integumentary: No Blood Disorders: No Family Medical History No Pertinent Family Hx, Seizures Physical Exam Vital Signs Vital Signs - First Documented 08/01/21 18:29 Temp 36.6 Pulse 96 Resp 18 B/P (MAP) 145/91 (109) Pulse Ox 95 O2 Delivery Room Air Capillary Refill : Less Than 3 Seconds Height, Weight, BMI Height: 5'4.00" Weight: 306lbs. 0oz. 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, no motor/sensory deficits, alert, normal mood/affect Crainal Nerves: normal hearing, normal speech, PERRL Coordination/Gait: normal gait Motor/Sensory: no motor deficit, no sensory deficit Skin: normal color, warm/dry Progress/Results/Core Measures Results/Orders Lab Results Laboratory Tests Test 08/01/21 19:12 08/01/21 20:32 Range/Units Urine Color YELLOW Urine Clarity CLEAR Urine pH 6.5 5-9 Urine Specific [place] 1.020 1.016-1.022 Urine Protein NEGATIVE NEGATIVE Urine Glucose (UA) NEGATIVE NEGATIVE Urine Ketones NEGATIVE NEGATIVE Urine Nitrite NEGATIVE NEGATIVE Urine Bilirubin NEGATIVE NEGATIVE Urine Urobilinogen 1.0 < = 1.0 MG/DL Urine Leukocyte Esterase NEGATIVE NEGATIVE Urine RBC (Auto) NEGATIVE NEGATIVE Urine RBC NONE /HPF Urine WBC 2-5 /HPF Urine Squamous Epithelial Cells 5-10 /HPF Urine Renal Epithelial Cells NONE /HPF Urine Crystals NONE /LPF Urine Bacteria LARGE H /HPF Urine Casts NONE /LPF Urine Mucus NEGATIVE /LPF Urine Culture Indicated YES Urine Test NEGATIVE NEGATIVE Urine Opiates Screen NEGATIVE NEGATIVE Urine Oxycodone Screen NEGATIVE NEGATIVE Urine Methadone Screen NEGATIVE NEGATIVE Urine Propoxyphene Screen NEGATIVE NEGATIVE Urine Barbiturates Screen NEGATIVE NEGATIVE Ur Tricyclic Antidepressants Screen NEGATIVE NEGATIVE Urine Phencyclidine Screen NEGATIVE NEGATIVE Urine Amphetamines Screen NEGATIVE NEGATIVE Urine Methamphetamines Screen NEGATIVE NEGATIVE Urine Benzodiazepines Screen NEGATIVE NEGATIVE Urine Cocaine Screen NEGATIVE NEGATIVE Urine Cannabinoids Screen NEGATIVE NEGATIVE White Blood Count 12.8 H 4.3-11.0 10^3/uL Red Blood Count 5.46 H 3.80-5.11 10^6/uL Hemoglobin 15.0 11.5-16.0 g/dL Hematocrit 44 35-52 % Mean Corpuscular Volume 81 80-99 fL Mean Corpuscular Hemoglobin 28 25-34 pg Mean Corpuscular Hemoglobin Concent 34 32-36 g/dL Red Cell Distribution Width 13.2 10.0-14.5 % Platelet Count 271 130-400 10^3/uL Mean Platelet Volume 11.6 9.0-12.2 fL Immature Granulocyte % (Auto) 1 % Neutrophils (%) (Auto) 67 42-75 % Lymphocytes (%) (Auto) 25 12-44 % Monocytes (%) (Auto) 6 0-12 % Eosinophils (%) (Auto) 1 0-10 % Basophils (%) (Auto) 1 0-10 % Neutrophils # (Auto) 8.7 H 1.8-7.8 10^3/uL Lymphocytes # (Auto) 3.2 1.0-4.0 10^3/uL Monocytes # (Auto) 0.7 0.0-1.0 10^3/uL Eosinophils # (Auto) 0.2 0.0-0.3 10^3/uL Basophils # (Auto) 0.1 0.0-0.1 10^3/uL Immature Granulocyte # (Auto) 0.1 0.0-0.1 10^3/uL Sodium Level 141 135-145 MMOL/L Potassium Level 3.6 3.6-5.0 MMOL/L Chloride Level 109 H 98-107 MMOL/L Carbon Dioxide Level 22 21-32 MMOL/L Anion Gap 10 5-14 MMOL/L Blood Urea Nitrogen 13 7-18 MG/DL Creatinine 0.78 0.60-1.30 MG/DL Estimat Glomerular Filtration Rate 91 BUN/Creatinine Ratio 17 Glucose Level 116 H 70-105 MG/DL Calcium Level 9.1 8.5-10.1 MG/DL Corrected Calcium 9.3 8.5-10.1 MG/DL Magnesium Level 1.8 1.6-2.4 MG/DL Total Bilirubin 0.2 0.1-1.0 MG/DL Aspartate Amino Transf (AST/SGOT) 24 5-34 U/L Alanine Aminotransferase (ALT/SGPT) 40 0-55 U/L Alkaline Phosphatase 59 40-136 U/L C-Reactive Protein High Sensitivity 1.42 H 0.00-0.50 MG/DL Total Protein 7.3 6.4-8.2 GM/DL Albumin 3.7 3.2-4.5 GM/DL TSH [place] Testing 2.17 0.35-4.94 UIU/ML Micro Results Microbiology 08/01/21 Urine Culture - Final, Complete >=3 Gram Positive Isolates My Orders Orders - VICKI MUKHERJEE MD Cbc With Automated Diff (08/01/21 19:05) Comprehensive Metabolic Panel (08/01/21 19:05) Hs C Reactive Protein (08/01/21 19:05) Magnesium (08/01/21 19:05) Thyroid Analyzer (08/01/21 19:05) Ua Culture If Indicated (08/01/21 19:05) Ed Iv/Invasive Line Start (08/01/21 19:05) Ct Head/Cervical Spine Wo (08/01/21 19:05) Drug Screen Stat (Urine) (08/01/21 19:07) Accucheck Stat ONCE (08/01/21 19:07) Urine Culture (08/01/21 19:12) Hcg,Qualitative Urine (08/01/21 20:39) Levetiracetam Tablet (Keppra Tablet) (08/01/21 21:00) Fentanyl Inj (Sublimaze Injection) (08/01/21 21:00) Topiramate Tablet (Topamax Tablet) (08/01/21 21:00) Ketorolac Injection (Toradol Injection) (08/01/21 22:30) Orphenadrine Inj (Ed Only) (Norflex Inje (08/01/21 22:30) Medications Given in ED Vital Signs/I&O 08/01/21 08/01/21 18:29 22:36 Temp 36.6 36.6 Pulse 96 90 Resp 18 16 B/P (MAP) 145/91 (109) 144/96 Pulse Ox 95 97 O2 Delivery Room Air Room Air Blood Pressure Mean: 109 Progress Progress Note : Progress Note Attempt at IV was unsuccessful. Patient was given Keppra and Topamax orally. Fentanyl was given by IM route for pain. Work-up was relatively unremarkable. Patient was additionally treated with Toradol and Norflex for pain. She was e ventually discharged into the care of law enforcement. Dr. Brito was notified of the discrepancies in medication management and the inability to follow-up with specialty care that the patient complained of. Diagnostic Imaging Diagonstic Imaging: CT Plain Films/CT/US/NM/MRI: c-spine, head Comments NAME: ALEJANDRA KAUFMAN [employer] REC#: [id number] PT STATUS: REG ER : 1995 PHYSICIAN: VICKI MUKHERJEE MD ADMIT DATE: 08/01/21/ER Signed Date of Exam:08/01/21 CT HEAD/CERVICAL SPINE WO PROCEDURE: CT head and CT cervical spine without contrast. TECHNIQUE: Multiple contiguous axial images were obtained through the brain and cervical spine without the use of intravenous contrast. Sagittal and coronal reformations through the cervical spine were then performed. Auto Exposure Controls were utilized during the CT exam to meet ALARA standards for radiation dose reduction. INDICATION: Seizure CT HEAD: The ventricles are normal in size, shape and position. There are no masses or hemorrhages. There are no extra-axial fluid collections. IMPRESSION: 1. Negative CT head. CT CERVICAL SPINE: The odontoid is intact. Atlantoaxial and basocervical relationships appear normal. Vertebral body height and alignment appear normal. Disc spaces are well-maintained. IMPRESSION: 1. Negative CT cervical spine. Dictated by: Dictated on workstation # [id number] Dict: 08/01/212127 Trans: 08/01/212143 [facility] [id number] Interpreted by: RAJIV NAIK MD Electronically signed by: RAJIV NAIK MD 08/01/212143 Reviewed: Reviewed by Me Departure Impression Primary Impression: Seizure Additional Impressions: Fall on same level Qualified Codes: W18.30XA - Fall on same level, unspecified, initial encounter Scalp contusion Qualified Codes: S00.03XA - Contusion of scalp, initial encounter Headache Qualified Codes: R51.9 - Headache, unspecified Disposition: 01 HOME, SELF-CARE Condition: Stable Departure-Patient Inst. Decision time for Depature: 22:23 Referrals: NO,LOCAL PHYSICIAN (PCP/Family) Primary Care Physician Patient Instructions: Seizures, Adult (DC) Add. Discharge Instructions: Continue with your medications as prescribed. For pain you may take ibuprofen up to 600 mg every 6 hours as needed and/or Ty lenol (acetaminophen) up to 1000 mg every 6 hours as needed. Contact [facility] to review the plan of care according to neurologist and/or neurosurgeons' recommendations. Also review medications. Call with questions or concerns. Return to the ER if there are worsening symptoms. All discharge instructions reviewed with patient and/or family. Voiced understanding. Copy Copies To 1: SHONNA BRITO JOSHUA T MD Aug 01, 2021 22:21
[2021-08-01] MEDS ORDERED: KETOROLAC 60 MG/2 ML VIAL IM ONE (22:30)
[2021-08-01] MEDS ORDERED: ORPHENADRINE 60 MG/2 ML (NORFLEX) AMP (ED ONLY) IM ONE (22:30)
[2021-08-01 22:36] VITALS: BP 144/96
== END 2021-08-01 22:36 | disposition home or self-care (01) ==
LOC: EDUNIT# 18:24 → ER 18:25
DX: S00.03XA Contusion of scalp, initial encounter (principal); F44.5 Conversion disorder with seizures or convulsions; F41.9 Anxiety disorder, unspecified; E11.9 Type 2 diabetes mellitus without complications; G43.909 Migraine, unspecified, not intractable, without status migrainosus; Z79.899 Other long term (current) drug therapy; W18.30XA Fall on same level, unspecified, initial encounter; Y92.149 Unspecified place in prison as the place of occurrence of the external cause
CPT/HCPCS: 36415; 70450; 72125; 80053; 80306; 81000; 83735; 84443; 84703; 85025; 86141; 87088